=== PATIENT | female | born 1940 | race Caucasian/White ===

== ENCOUNTER → 2020-03-15 | Outpatient (CLI) | payer OTHER, MEDICARE ==
[~2020-03-15] MED LIST: CHOL500050 PO; HCT25T PO; HYDR25TA4 PO; IBUP-2473 PO; LOVA10TA PO
== END ==
LOC: LAB 18:22
PROVIDERS: ATTEND Family Medicine
DX: Z20.828 Contact with and (suspected) exposure to other viral communicable diseases (principal)
CPT/HCPCS: 87635

== ENCOUNTER 2020-03-17 07:25 | Inpatient (IN) | payer MEDICARE, OTHER ==
[~2020-03-17] VITALS: Ht 160 cm; Wt 62.2 kg
[~2020-03-17 07:25] MED LIST changes: -CHOL500050 PO; -HYDR25TA4 PO; -IBUP-2473 PO; -LOVA10TA PO
[2020-03-17] MEDS ORDERED: dilTIAZem DRIP PRE-MIX 125 ML IV SCH (07:45)
[2020-03-17] MEDS ORDERED: HYDROmorphone 2 MG/ML VIAL (DILAUDID) IVP PRN (07:45)
[2020-03-17] MEDS ORDERED: diphenhydrAMINE 25 MG TAB (BENADRYL) PO PRN (07:45)
[2020-03-17] MEDS ORDERED: HEParin 1000 UNIT/ML (10ML VIAL) FOR BOLUS IV SCH (07:45)
[2020-03-17] MEDS ORDERED: CALCIUM CARBONATE 500 MG (TUMS) TAB.CHEW PO PRN (07:45)
[2020-03-17] MEDS ORDERED: diphenhydrAMINE 50 MG/ML INJ (BENADRYL) IVP PRN (08:00)
[2020-03-17] MEDS ORDERED: ACETAMINOPHEN 650 MG SUPP (TYLENOL) PR PRN (08:00)
[2020-03-17 08:06] LABS: BASOPHILS # (AUTO) 0.1 10^3/uL (0.0-0.1); BASOPHILS % (AUTO) 0 % (0-10); EOSINOPHILS # (AUTO) 0.1 10^3/uL (0.0-0.3); EOSINOPHILS % (AUTO) 1 % (0-10); HEMATOCRIT 36 % (35-52); HEMOGLOBIN 11.5 g/dL (11.5-16.0); LYMPHOCYTES # (AUTO) 0.8 10^3/uL (1.0-4.0); LYMPHOCYTES % (AUTO) 5 % (12-44); MEAN CORPUSCULAR HEMOGLOBIN 30 pg (25-34); MEAN CORPUSCULAR HGB CONC 32 g/dL (32-36); MEAN CORPUSCULAR VOLUME 93 fL (80-99); MEAN PLATELET VOLUME 9.7 fL (9.0-12.2); MONOCYTES # (AUTO) 1.2 10^3/uL (0.0-1.0); MONOCYTES % (AUTO) 7 % (0-12); NEUTROPHILS # (AUTO) 14.2 10^3/uL (1.8-7.8); NEUTROPHILS % (AUTO) 86 % (42-75); PLATELET COUNT 319 10^3/uL (130-400); WHITE BLOOD COUNT 16.5 10^3/uL (4.3-11.0)
[2020-03-17] MEDS: NS IV 1000 ML 1,000 ML IV SCH ×3 (08:15→18:39)
--- NOTE | 2020-03-17 08:15 | History & Physical-Hospitalist ---
History of Present Illness HPI/Chief Complaint CC: AF w/RVR new onset transferred from [facility] for higher level of care to ICU HPI: This is a 80yoWF clinic patient of Dr Burch who was transferred from [facility] to [facility] ICU due to new onset AF w/RVR after an emergent small bowel obstruction s/p surgical resection by Dr Anguiano on 03/15. Patient has now converted to NSR. Dr Palomares consulted and placed her on OAC and PO Cardizem and is now ready for move to 4th floor. CLD initiated. Checked meds and labs and reviewed [facility] records. Source: patient, RN/MD, old records Exam Limitations: no limitations Date Seen 03/17/20 Time Seen by a Provider: 11:00 Attending Physician Izabella Vela DO PCP Aura Burch MD Referring Physician Date of Admission Mar 17, 2020 at 07:25 Home Medications & Allergies Home Medications Reviewed patient Home Medication Reconciliation performed by pharmacy medication reconciliations pharmacy technician trainee and/or nursing. Patients Allergies have been reviewed. 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) Alcohol Use: Occasionally Uses Smoking Status: Never a Smoker Immunizations Up To Date Date of Pneumonia Vaccine: Dec 29, 2018 Date of Influenza Vaccine: Dec 21, 2019 Past Medical History Cardiac: High Cholesterol, Hypertension Reproductive: No Review of Systems Constitutional: see HPI Respiratory: dyspnea on exertion Gastrointestinal: abdominal pain, loss of appetite Physical Exam Physical Exam Vital Signs Vital Signs - First Documented 03/17/20 03/17/20 03/17/20 07:45 08:32 09:00 Temp 37.6 Pulse 89 Resp 31 B/P (MAP) 91/50 (64) Pulse Ox 94 O2 Delivery Nasal Cannula O2 Flow Rate 10.00 Capillary Refill : Height, Weight, BMI Height: '" Weight: lbs. oz. kg; 25.58 BMI Method: General Appearance: No Apparent Distress Eyes: Right Eye Normal Inspection, Right Eye PERRL HEENT: PERRL/EOMI, Normal ENT Inspection, Pharynx Normal, Moist Mucous Membranes Neck: Full Range of Motion, Normal Inspection, Non Tender Respiratory: Chest Non Tender, Lungs Clear, Normal Breath Sounds, No Accessory Muscle Use, No Respiratory Distress Cardiovascular: Regular Rate, Rhythm, No Edema, No Gallop, No JVD, No Murmur, Normal Peripheral Pulses Gastrointestinal: Normal Bowel Sounds, No Organomegaly, No Pulsatile Mass, Non Tender, Soft Back: Normal Inspection, No CVA Tenderness, No Vertebral Tenderness Extremity: Normal Capillary Refill, Normal Inspection, Normal Range of Motion, Non Tender, No Calf Tenderness, No Pedal Edema Neurologic/Psychiatric: Alert, Oriented x3, No Motor/Sensory Deficits, Normal Mood/Affect Skin: Normal Color, Warm/Dry Lymphatic: No Adenopathy Results Results/Procedures Labs Laboratory Tests 03/17/20 08:00 Patient resulted labs reviewed. Assessment/Plan Admission Diagnosis Assessment: AF w/RVR new onset requiring transfer from [facility] to [facility] ICU now converted to NSR after Cardizem given at [facility] Recent emergent SBO s/o resection 03/15/[address] Anguiano at [facility] HTN HLP Post op ileus Plan: Pain control OAC Cardizem Admission Status: Inpatient Order (span 2 midnights) Reason for Inpatient Admission: AF w/RVR Diagnosis/Problems Diagnosis/Problems (1) Atrial fibrillation with rapid ventricular response Clinical Quality Measures DVT/VTE Risk/Contraindication: Risk Factor Score Per Nursin RFS Level Per Nursing on Admit: 4+=Very High IZABELLA VELA DO Mar 17, 2020 08:15
[2020-03-17 08:19] LABS: ALBUMIN 2.9 GM/DL (3.2-4.5); CHLORIDE 104 MMOL/L (98-107); POTASSIUM 3.1 MMOL/L (3.6-5.0)
[2020-03-17 08:20] LABS: SODIUM 137 MMOL/L (135-145)
[2020-03-17 08:21] LABS: CALCIUM 8.1 MG/DL (8.5-10.1)
[2020-03-17 08:22] LABS: GLUCOSE 65 MG/DL (70-105); TOTAL PROTEIN 5.4 GM/DL (6.4-8.2)
[2020-03-17 08:23] LABS: CARBON DIOXIDE 17 MMOL/L (21-32)
[2020-03-17 08:24] LABS: BILIRUBIN,TOTAL 0.9 MG/DL (0.1-1.0)
[2020-03-17 08:25] LABS: ALKALINE PHOSPHATASE 39 U/L (40-136); CREATININE SERUM 0.76 MG/DL (0.60-1.30); GFR ESTIMATED > 60
--- NOTE | 2020-03-17 08:26 | Diagnostic Imaging Report ---
EXAMINATION: Chest radiograph, portable AP view. DATE: 03/17/2020 8:15 AM INDICATION: 80-year-old female, rales. Shortness of breath. COMPARISON: None. FINDINGS: Heart size is within normal limits. There is no identified pneumothorax. There is blunting of the left lateral costophrenic angle. There are mildly prominent pulmonary vascular markings. Comparison imaging is not available to assess for possibility of stability. There is a nasogastric tube with tip just distal to the gastroesophageal junction. Consider advancement. IMPRESSION: 1. Mild blunting the left lateral costophrenic angle which may relate to small effusion, atelectasis, and/or infiltrate. Soft tissue overlap is also considered. 2. Mildly prominent pulmonary vascular markings most likely reflecting interstitial edema, atypical infection, and/or chronic lung changes. 3. Nasogastric tube tip just slightly distal to the gastroesophageal junction. Recommend advancement. Dictated by: Dictated on workstation # [id number]
[2020-03-17 08:27] LABS: BUN/CREATININE RATIO 26
[2020-03-17 08:28] LABS: ALANINE AMINOTRANSFERASE 9 U/L (0-55)
[2020-03-17 08:41] LABS: BAND NEUTROPHILS 19 %; LYMPHOCYTES % (MANUAL) 8 %; MONOCYTES % (MANUAL) 13 %; NEUTROPHILS % (MANUAL) 60 %
[2020-03-17 08:42] LABS: BURR CELLS SLIGHT
[2020-03-17 08:51] LABS: INR 1.5 (0.8-1.4); PROTHROMBIN TIME PATIENT 18.6 SEC (12.2-14.7)
[2020-03-17] MEDS: APIXABAN 5 MG (ELIQUIS) TABLET PO SCH ×2 (09:28→20:40)
[2020-03-17] MEDS: POTASSIUM CL 10MEQ/50ML IVPB 50 ML IV SCH ×4 (10:36→16:55)
[2020-03-17 10:40] VITALS: BP 114/71
[2020-03-17] MEDS ORDERED: RT-ALBUTEROL SULF 2.5 MG/3 ML PRE-MIX VIAL INH PRN (11:00)
--- NOTE | 2020-03-17 11:32 | Progress Note - Surgery ---
Subjective Time Seen by a Provider: 09:01 Subjective/Events-last exam Pt seen and examined, states she is very thirsty and can't talk because her mouth is so dry. Denies flatus or BM, still has some abdominal pain in upper abd. Review of Systems General: No Chills; Fatigue, Malaise Pulmonary: No Dyspnea, No Cough Cardiovascular: Palpitations; No: Chest Pain Gastrointestinal: Abdominal Pain; No: Nausea, Vomiting Objective Exam Vital Signs Date Time Temp Pulse Resp B/P (MAP) Pulse Ox O2 Delivery O2 Flow Rate FiO2 03/17/20 10:40 37.2 88 97 03/17/20 10:00 93 22 114/71 (85) 97 Nasal Cannula 10.00 03/17/20 09:00 98 31 109/58 (75) 94 Nasal Cannula 10.00 03/17/20 08:36 37.2 03/17/20 08:32 37.6 105 91/50 (64) Nasal Cannula 10.00 03/17/20 08:32 89 03/17/20 07:45 94 Nasal Cannula 10.00 Capillary Refill : General Appearance: No Apparent Distress, Chronically ill Respiratory: Lungs Clear, Normal Breath Sounds, No Accessory Muscle Use, No Respiratory Distress Cardiovascular: Regular Rate, Rhythm, No Murmur Gastrointestinal: soft, distended, tenderness Skin: Normal Color, Warm/Dry Results Lab Laboratory Tests 03/17/20 08:00: White Blood Count 16.5H, Red Blood Count 3.88, Hemoglobin 11.5, Hematocrit 36, Mean Corpuscular Volume 93, Mean Corpuscular Hemoglobin 30, Mean Corpuscular Hemoglobin Concent 32, Red Cell Distribution Width 12.7, Platelet Count 319, Mean Platelet Volume 9.7, Immature Granulocyte % (Auto) 1, Neutrophils (%) (Auto) 86H, Lymphocytes (%) (Auto) 5L, Monocytes (%) (Auto) 7, Eosinophils (%) (Auto) 1, Basophils (%) (Auto) 0, Neutrophils # (Auto) 14.2H, Lymphocytes # (Auto) 0.8L, Monocytes # (Auto) 1.2H, Eosinophils # (Auto) 0.1, Basophils # (Auto) 0.1, Immature Granulocyte # (Auto) 0.1, Neutrophils % (Manual) 60, Lymphocytes % (Manual) 8, Monocytes % (Manual) 13, Band Neutrophils 19, [place] Cells SLIGHT, Prothrombin Time 18.6H, INR Comment 1.5H, Activated Partial Thromboplast Time 42H, Sodium Level 137, Potassium Level 3.1L, Chloride Level 104, Carbon Dioxide Level 17L, Anion Gap 16H, Blood Urea Nitrogen 20H, Creatinine 0.76, Estimat Glomerular Filtration Rate > 60, BUN/Creatinine Ratio 26, Glucose Level 65L, Calcium Level 8.1L, Corrected Calcium 9.0, Total Bilirubin 0.9, Aspartate Amino Transf (AST/SGOT) 18, Alanine Aminotransferase (ALT/SGPT) 9, Alkaline Phosphatase 39L, Total Protein 5.4L, Albumin 2.9L Assessment/Plan Assessment/Plan Assessment/Plan S/P SBR and RIH repair Afib with RVR - resolved Pt encouraged to ambulate and chew gum (both will help with return of bowel f xn). Use IS and can have sips of clears, NGT clamp and rehook up if pt get nauseous. Pain control and anti-emetics as needed. Clinical Quality Measures DVT/VTE Risk/Contraindication: Risk Factor Score Per Nursin RFS Level Per Nursing on Admit: 4+=Very High ANDRE BARON DO Mar 17, 2020 11:32
--- NOTE | 2020-03-17 14:30 | NUR ---
RECEIVED FROM ICU, ALERT, NG TUBE CONNECTED TO INT LOW SUCTION, SERRANO PATENT, ABD INCISION WITHOUT REDNESS OR DRAINAGE, O2 ON PER NC AT 10 LITERS, DENIES PAIN AT THIS TIME, IV SITE WITHOUT REDNESS OR SWELLING, CALL LIGHT WITHIN REACH, REPORT FROM CIARA TANNER
--- NOTE | 2020-03-17 14:33 | Consultation-Cardiology ---
HPI-Cardiology Cardiology Consultation: Date of Consultation 03/17/20 Time Seen by a Provider: 12:00 Date of Admission Attending Physician Izabella Clayton DO Admitting Physician Aura Burch MD Consulting Physician SERGEY HUYNH MD, MA, FACP, FACC, [facility], CCDS Physician requesting consult: Dr Clayton HPI: Chief Complaint: Reason for consultation: A Fib with RVR HPI 80 yo woman who underwent small bowel resection and R inguinal hernia repair in [place] and has been transferred to this [facility] to Dr Clayton's service for A Fib with RVR in the post-op period. Had converted to NSR shortly upon arrival here. Doesn't report cp or palp or syncope or shortness of breath. Reports gen malaise. Some discomfort at site of surgery. No n/v Review of Systems-Cardiology Review of Systems Constitutional: malaise, tiredness; No weight loss, No weight gain Eyes: No vision change Ears/Nose/Throat: No ear discharge, No nasal drainage, No recent hearing loss Respiratory: As described under HPI Cardiovascular: As described under HPI Gastrointestinal: As described under HPI Genitourinary: No dysuria, No hematuria, No urine frequency changes Musculoskeletal: back pain (chroni) Skin: No rash Psychiatric/Neurological: No seizure, No focal weakness, No syncope Hematologic: No bleeding abnormalities XNG-Sgyxvl-Eoiovl Hx Immunizations Up To Date Date of Pneumonia Vaccine: Dec 29, 2018 Date of Influenza Vaccine: Dec 21, 2019 Past Medical History PMH As described under Assessment. Family Medical History Family Medical History: Does not report fam history of early CAD or SCD. Father had OR in his mid 70s Allergies and Home Medications Allergies Coded Allergies: No Known Drug Allergies (Unverified Allergy, Mild, 03/26/09) Patient Home Medication List Home Medication List Reviewed: Yes Physical Exam-Cardiology Physical Exam Vital Signs/I&O 03/17/20 03/17/20 03/17/20 03/17/20 07:45 08:32 08:32 08:36 Temp 37.6 37.2 Pulse 89 105 B/P (MAP) 91/50 (64) Pulse Ox 94 O2 Delivery Nasal Cannula Nasal Cannula O2 Flow Rate 10.00 10.00 03/17/20 03/17/20 03/17/20 03/17/20 09:00 10:00 10:40 11:00 Temp 37.2 Pulse 98 93 88 101 Resp 31 22 37 B/P (MAP) 109/58 (75) 114/71 (85) 97/78 (84) Pulse Ox 94 97 97 93 O2 Delivery Nasal Cannula Nasal Cannula Nasal Cannula O2 Flow Rate 10.00 10.00 10.00 03/17/20 03/17/20 12:00 12:52 Pulse 93 98 Resp 22 B/P (MAP) 110/61 (77) Pulse Ox 97 O2 Delivery Nasal Cannula O2 Flow Rate 10.00 Capillary Refill : Constitutional: AAO x 3, well-developed, well-nourished HEENT: EOMI, hearing is well preserved; No xanthelasmas are seen Neck: carotid pulses are 2 + bilaterally, with good upstrokes Respiratory: No accessory muscle use; other (fair to good air entry) Cardiovascular: regular rate-rhythm, S1 and S2, systolic murmur (soft GREGORIO at card base) Gastrointestinal: other (NGT in place, bs absent, we did not palpate abdomen due to recent post-op state) Extremities: No clubbing, No cyanosis, No significant edema Neurologic/Psychiatric: oriented x 3, other (moves all limbs equally) Skin: No rash on exposed areas, No ulcerations on exposed areas Data Review Labs Laboratory Tests 03/17/20 08:00: White Blood Count 16.5H, Red Blood Count 3.88, Hemoglobin 11.5, Hematocrit 36, Mean Corpuscular Volume 93, Mean Corpuscular Hemoglobin 30, Mean Corpuscular Hemoglobin Concent 32, Red Cell Distribution Width 12.7, Platelet Count 319, Mean Platelet Volume 9.7, Immature Granulocyte % (Auto) 1, Neutrophils (%) (Auto) 86H, Lymphocytes (%) (Auto) 5L, Monocytes (%) (Auto) 7, Eosinophils (%) (Auto) 1, Basophils (%) (Auto) 0, Neutrophils # (Auto) 14.2H, Lymphocytes # (Auto) 0.8L, Monocytes # (Auto) 1.2H, Eosinophils # (Auto) 0.1, Basophils # (Auto) 0.1, Immature Granulocyte # (Auto) 0.1, Neutrophils % (Manual) 60, Lymphocytes % (Manual) 8, Monocytes % (Manual) 13, Band Neutrophils 19, [place] Cells SLIGHT, Prothrombin Time 18.6H, INR Comment 1.5H, Activated Partial Thromboplast Time 42H, Sodium Level 137, Potassium Level 3.1L, Chloride Level 104, Carbon Dioxide Level 17L, Anion Gap 16H, Blood Urea Nitrogen 20H, Creatinine 0.76, Estimat Glomerular Filtration Rate > 60, BUN/Creatinine Ratio 26, Glucose Level 65L, Calcium Level 8.1L, Corrected Calcium 9.0, Total Bilirubin 0.9, Aspartate Amino Transf (AST/SGOT) 18, Alanine Aminotransferase (ALT/SGPT) 9, Alkaline Phosphatase 39L, Total Protein 5.4L, Albumin 2.9L Laboratory Tests 03/17/20 08:00 A/P-Cardiology Assessment/Admission Diagnosis PAF with RVR first diagnosed on 03/17/20 Echo on 03/17/20: LVEF 60-65%, PASP 25-30 mmHg S/p bowel resection and R inguinal hernia repair H/o hypertension Discussion and Recomendations * Long-acting dilt for vent rate control * Apixaban for stroke prophylaxis, if approved by Dr Clayton * Monitor labs Clinical Quality Measures DVT/VTE Risk/Contraindication: Risk Factor Score Per Nursin RFS Level Per Nursing on Admit: 4+=Very High SERGEY HUYNH MD FACP [facility] Mar 17, 2020 14:33
--- NOTE | 2020-03-17 14:34 | NUR ---
LATE ENTRY, TIMELINE OF EVENTS: [address] VELA NOTIFIED NEW ORDERS RECEIVED, PT NOTED TO BE AFIB IN 180'S ORDERS RECEIVED TO START CARDIZEM DRIP AND NOTIFY DR HUYNH. PT NOTED TO HAVE CONVERTED TO SINUS RHYTHM, EKG OBTAINED, 0800 DR HUYNH NOTIFIED OF CONSULT, NEW ORDERS RECEIVED. 1000 PT ASSISTED TO CHAIR AND GIVEN SIPS OF ICE WATER PER VERBAL ORDERS DR BARON 1245 ORDERS OBTAINED FOR PT TO BE TRANSFERRED TO MEDICAL FLOOR WITH TELEMETRY 1415 PT TO 4TH FLOOR VIA WC ACCOMPANIED BY PAPER FOLDER., REPORT GIVEN TO Wilfredo SANDOVAL RN
[2020-03-17 14:52] VITALS: BP 125/63
[2020-03-17] MEDS ORDERED: LOVA10TA PO (15:08)
[2020-03-17 16:00] VITALS: BP 134/70
[2020-03-17] MEDS: morphine INJ 4 MG/ML 1 ML (VIAL/SYRINGE) IVP PRN ×2 (16:56→20:45)
[2020-03-17] MEDS: RT-ALBUTEROL SULF 2.5 MG/3 ML PRE-MIX VIAL INH SCH ×2 (17:08→22:44)
[2020-03-17 20:07] VITALS: BP 132/61
[2020-03-17] MEDS: ACETAMINOPHEN 500 MG TAB (TYLENOL) PO PRN (20:40)
[2020-03-17] MEDS: ONDANSETRON 4 MG/2 ML (SDV) Z0FRAN IVP PRN (23:59)
[2020-03-18] VITALS (8 sets, daily range): BP systolic 118–174; BP diastolic 56–95
[2020-03-18] MEDS: NS IV 1000 ML 1,000 ML IV SCH ×3 (02:52→19:20)
[2020-03-18] MEDS: RT-ALBUTEROL SULF 2.5 MG/3 ML PRE-MIX VIAL INH SCH ×3 (03:29→21:29)
[2020-03-18] MEDS ORDERED: MAGNESIUM 1 GM/100 ML IVPB 100 ML IV SCH (06:00)
[2020-03-18] MEDS ORDERED: POTASSIUM CL 10MEQ/50ML IVPB 50 ML IV SCH (06:00)
[2020-03-18] MEDS ORDERED: KCL 20 MEQ TAB (K-DUR) PO SCH (06:00)
--- NOTE | 2020-03-18 06:15 | Progress Note - Hospitalist ---
Subjective HPI/CC On Admission Date Seen by Provider: Mar 18, 2020 Time Seen by Provider: 09:00 CC: AF w/RVR new onset [place] [facility] [place] HPI: This is a 80yoWF clinic patient of Dr Burch who was [place] [facility] [place] [facility] ICU due to new onset AF w/RVR after an emergent small bowel obstruction s/p surgical resection by Dr Anguiano on 03/15. Patient has now converted to NSR. Dr Palomares consulted and placed her on OAC and PO Cardizem and is now ready for move to 4th floor. CLD initiated. Checked meds and labs and [place] [facility] [place]. Subjective/Events-last exam Pt a little bit more tender in her abdomen PT and OT ordered Potassium supplement will be ordered by cardiology Pt remains in normal sinus rhythm from AF Maintained on Eliquis for anticoagulation for stroke prophylaxis Review of Systems General: Fatigue, Malaise Gastrointestinal: Abdominal Pain Objective Exam Vital Signs Vital Signs Date Time Temp Pulse Resp B/P (MAP) Pulse Ox O2 Delivery O2 Flow Rate FiO2 03/19/20 03:16 36.9 89 18 117/59 (78) 91 High Flow N/C 6.00 Capillary Refill : NONE General Appearance: No Apparent Distress, WD/WN, Anxious, Chronically ill Respiratory: Chest Non Tender, Lungs Clear, Normal Breath Sounds, No Accessory Muscle Use, No Respiratory Distress Cardiovascular: Regular Rate, Rhythm, No Edema, No Gallop, No JVD, No Murmur, Normal Peripheral Pulses, Tachycardia Neurologic/Psychiatric: Alert, Oriented x3, No Motor/Sensory Deficits, Normal Mood/Affect Results/Procedures Lab Laboratory Tests 03/18/20 05:35 Patient resulted labs reviewed. Assessment/Plan Assessment and Plan Assess & Plan/Chief Complaint Assessment: AF w/RVR new onset requiring [place] [facility] [place] [facility] ICU now converted to NSR after Cardizem given at [facility] Recent emergent SBO s/o resection 03/15/[address] Anguiano at [facility] [place] H[place] Post op ileus Plan: Pain control OAC Cardizem 03/18/20: Replace potassium Monitor HR AF Pain meds PT OT Diagnosis/Problems Diagnosis/Problems (1) Atrial fibrillation with rapid ventricular response Clinical Quality Measures DVT/VTE Risk/Contraindication: Risk Factor Score Per Nursin RFS Level Per Nursing on Admit: 4+=Very High KEYA VELA 28, 2020 06:15
[2020-03-18 06:22] LABS: BASOPHILS % (AUTO) 0 % (0-10); EOSINOPHILS % (AUTO) 0 % (0-10); HEMATOCRIT 31 % (35-52); HEMOGLOBIN 9.9 g/dL (11.5-16.0); LYMPHOCYTES # (AUTO) 0.5 10^3/uL (1.0-4.0); LYMPHOCYTES % (AUTO) 4 % (12-44); MEAN CORPUSCULAR HEMOGLOBIN 30 pg (25-34); MEAN CORPUSCULAR HGB CONC 32 g/dL (32-36); MEAN CORPUSCULAR VOLUME 94 fL (80-99); MEAN PLATELET VOLUME 10.2 fL (9.0-12.2); MONOCYTES # (AUTO) 0.7 10^3/uL (0.0-1.0); MONOCYTES % (AUTO) 4 % (0-12); NEUTROPHILS # (AUTO) 13.8 10^3/uL (1.8-7.8); NEUTROPHILS % (AUTO) 91 % (42-75); PLATELET COUNT 319 10^3/uL (130-400); WHITE BLOOD COUNT 15.1 10^3/uL (4.3-11.0)
[2020-03-18 06:50] LABS: ALANINE AMINOTRANSFERASE 8 U/L (0-55); ALBUMIN 2.7 GM/DL (3.2-4.5); ALKALINE PHOSPHATASE 46 U/L (40-136); BILIRUBIN,TOTAL 0.6 MG/DL (0.1-1.0); BUN/CREATININE RATIO 25; CALCIUM 8.4 MG/DL (8.5-10.1); CARBON DIOXIDE 17 MMOL/L (21-32); CHLORIDE 109 MMOL/L (98-107); CREATININE SERUM 0.68 MG/DL (0.60-1.30); GFR ESTIMATED > 60; GLUCOSE 81 MG/DL (70-105); MAGNESIUM 2.1 MG/DL (1.6-2.4); SODIUM 142 MMOL/L (135-145); TOTAL PROTEIN 5.5 GM/DL (6.4-8.2)
--- NOTE | 2020-03-18 07:59 | Progress Note - Surgery ---
KLEVER MCCONNELL MED STUDENT 03/18/20 0759: Subjective Date Seen by a Provider: Mar 18, 2020 Time Seen by a Provider: 06:40 Subjective/Events-last exam Pt seen and examined. She was in bed resting in NAD. She has an NG tube in place draining dark/bilious fluid. She has abd pain 3/10 that she says in controlled with her pain medication. No complaints of chest pain/N/V/SOB this AM, but last night did have an episode with significant abd pain, nausea, headache, and lightheadedness, after which she had the NG tube place and her condition improved. Denies passing flatus or having a bowel movement since her bowel resection on 03/15. Review of Systems General: No Chills HEENT: No Head Aches Pulmonary: No Dyspnea Cardiovascular: No: Chest Pain, Lt Headedness Gastrointestinal: Abdominal Pain; No: Nausea, Vomiting Genitourinary: No Dysuria Objective Exam Vital Signs Date Time Temp Pulse Resp B/P (MAP) Pulse Ox O2 Delivery O2 Flow Rate FiO2 03/18/20 03:54 37.2 78 20 121/56 (77) 92 High Flow N/C 8.00 03/18/20 03:29 92 High Flow N/C 8.00 03/18/20 01:00 80 03/18/20 00:00 37.6 85 16 118/58 (78) 92 High Flow N/C 6.00 03/17/20 22:44 5.00 03/17/20 21:00 9 Nasal Cannula 5.00 03/17/20 20:07 37.1 90 18 132/61 (84) 92 High Flow N/C 5.00 03/17/20 19:00 91 03/17/20 16:00 36.8 85 16 134/70 (91) 98 High Flow N/C 5.00 03/17/20 15:00 91 Nasal Cannula 10.00 03/17/20 14:52 37.2 91 20 125/63 (83) 91 Nasal Cannula 10.00 03/17/20 12:52 98 03/17/20 12:00 93 22 110/61 (77) 97 Nasal Cannula 10.00 03/17/20 11:00 101 37 97/78 (84) 93 Nasal Cannula 10.00 03/17/20 10:40 37.2 88 97 03/17/20 10:00 93 22 114/71 (85) 97 Nasal Cannula 10.00 03/17/20 09:00 98 31 109/58 (75) 94 Nasal Cannula 10.00 03/17/20 08:36 37.2 03/17/20 08:32 37.6 105 91/50 (64) Nasal Cannula 10.00 03/17/20 08:32 89 I & O 03/18/20 07:00 Intake Total 550 ml Output Total 1600 ml Balance -1050 ml Capillary Refill : NONE General Appearance: No Apparent Distress HEENT: PERRL/EOMI Neck: Full Range of Motion, Normal Inspection, Non Tender Respiratory: Chest Non Tender, Lungs Clear, Normal Breath Sounds, No Accessory Muscle Use, No Respiratory Distress Cardiovascular: Regular Rate, Rhythm, No Edema, No Gallop, No JVD, No Murmur, Normal Peripheral Pulses Gastrointestinal: abnormal bowel sounds (tympanitic), distended, tenderness, other (R inguinal incision, umbilical incision, lap sites all secured with candis with no s/s infection/drainage) Extremity: Normal Capillary Refill, Normal Inspection, Normal Range of Motion, Non Tender, No Pedal Edema Neurologic/Psychiatric: Alert, Oriented x3, No Motor/Sensory Deficits, Normal Mood/Affect Skin: Normal Color, Warm/Dry Lymphatic: No Adenopathy Results Lab Laboratory Tests 03/17/20 08:00: White Blood Count 16.5H, Red Blood Count 3.88, Hemoglobin 11.5, Hematocrit 36, Mean Corpuscular Volume 93, Mean Corpuscular Hemoglobin 30, Mean Corpuscular Hemoglobin Concent 32, Red Cell Distribution Width 12.7, Platelet Count 319, Mean Platelet Volume 9.7, Immature Granulocyte % (Auto) 1, Neutrophils (%) (Auto) 86H, Lymphocytes (%) (Auto) 5L, Monocytes (%) (Auto) 7, Eosinophils (%) (Auto) 1, Basophils (%) (Auto) 0, Neutrophils # (Auto) 14.2H, Lymphocytes # (Auto) 0.8L, Monocytes # (Auto) 1.2H, Eosinophils # (Auto) 0.1, Basophils # (Auto) 0.1, Immature Granulocyte # (Auto) 0.1, Neutrophils % (Manual) 60, Lymphocytes % (Manual) 8, Monocytes % (Manual) 13, Band Neutrophils 19, [place] Cells SLIGHT, Prothrombin Time 18.6H, INR Comment 1.5H, Activated Partial Thromboplast Time 42H, Sodium Level 137, Potassium Level 3.1L, Chloride Level 104, Carbon Dioxide Level 17L, Anion Gap 16H, Blood Urea Nitrogen 20H, Creatinine 0.76, Estimat Glomerular Filtration Rate > 60, BUN/Creatinine Ratio 26, Glucose Level 65L, Calcium Level 8.1L, Corrected Calcium 9.0, Total Bilirubin 0.9, Aspartate Amino Transf (AST/SGOT) 18, Alanine Aminotransferase (ALT/SGPT) 9, Alkaline Phosphatase 39L, Total Protein 5.4L, Albumin 2.9L 03/18/20 05:35: White Blood Count 15.1H, Red Blood Count 3.33L, Hemoglobin 9.9L, Hematocrit 31L, Mean Corpuscular Volume 94, Mean Corpuscular Hemoglobin 30, Mean Corpuscular Hemoglobin Concent 32, Red Cell Distribution Width 13.1, Platelet Count 319, Mean Platelet Volume 10.2, Immature Granulocyte % (Auto) 1, Neutrophils (%) (Auto) 91H, Lymphocytes (%) (Auto) 4L, Monocytes (%) (Auto) 4, Eosinophils (%) (Auto) 0, Basophils (%) (Auto) 0, Neutrophils # (Auto) 13.8H, Lymphocytes # (Auto) 0.5L, Monocytes # (Auto) 0.7, Eosinophils # (Auto) 0.0, Basophils # (Auto) 0.0, Immature Granulocyte # (Auto) 0.1, Sodium Level 142, Potassium Level 3.0L, Chloride Level 109H, Carbon Dioxide Level 17L, Anion Gap 16H, Blood Urea Nitrogen 17, Creatinine 0.68, Estimat Glomerular Filtration Rate > 60, BUN/Creatinine Ratio 25, Glucose Level 81, Calcium Level 8.4L, Corrected Calcium 9.4, Total Bilirubin 0.6, Aspartate Amino Transf (AST/SGOT) 18, Alanine Aminotransferase (ALT/SGPT) 8, Alkaline Phosphatase 46, Total Protein 5.5L, Albumin 2.7L, Magnesium Level 2.1 Assessment/Plan Assessment/Plan Assessment/Plan S/P SBR and RIH repair 03/15 Hypokalemia - K 3.0 Afib with RVR - resolved Pt has not passed flatus since her procedure on 03/15; continue to encourage ambulation, IS use, clear liquids, pain management, antiemetics, replenish K Clinical Quality Measures DVT/VTE Risk/Contraindication: Risk Factor Score Per Nursin RFS Level Per Nursing on Admit: 4+=Very High ANGUIANOKVNG NOVA DO 03/18/202020: Subjective Subjective/Events-last exam Patient sitting in the chair. Patient states she has been ambulating. She had NG tube placed back to low wall suction. She states her pain is a 3 out of 10 and is controlled. Patient has past just a little bit of flatus just after walking. Using incentive spirometer some but not able to do very well. Slight shortness of breath with exertion. No other complaints at this time. Denies any nausea vomiting fever sweats chills shortness of breath or chest pain currently. WBC slowly trending down. Objective Exam General Appearance: No Apparent Distress HEENT: PERRL/EOMI Neck: Normal Inspection, Non Tender, Other Respiratory: Chest Non Tender, No Accessory Muscle Use, No Respiratory Distress Cardiovascular: Regular Rate, Rhythm, No JVD Gastrointestinal: distended (Minimal), tenderness (Incisional), other (R inguinal incision, umbilical incision, lap sites all secured with candis with no s/s infection/drainage) Extremity: Normal Inspection, Non Tender Neurologic/Psychiatric: Alert, Oriented x3, No Motor/Sensory Deficits, Normal Mood/Affect Skin: Normal Color, Warm/Dry Lymphatic: No Adenopathy Assessment/Plan Assessment/Plan Assessment/Plan S/P SBR and RIH repair 03/15 Hypokalemia - K 3.0 Afib with RVR Leukocytosis Passed flatus once if continue will pull ng tube and clears as tolerates Zosyn started back leukocytosis slightly down from yesterday, small bowel resection due to hole in small bowel minimal intrabdomianl contamination and was washed out Anticoagulation due to Afib rvr IS encouraged Ambulate repeat labs in am replace k Supervisory-Addendum Brief Verification & Attestation Participated in pt care: history, MDM, physical Personally performed: exam, history, MDM, supervision of care Care discussed with: Medical Student Procedures: n/a Results interpretation: Verified all documentation Verification and Attestation of Medical Student E/M Service A medical student performed and documented this service in my presence. I reviewed and verified all information documented by the medical student and made modifications to such information, when appropriate. I personally performed the physical exam and medical decision making. Kvng Anguiano, Mar 18, 2020,20:21 KLEVER MCCONNELL MED STUDENT Mar 18, 2020 07:59 KVNG ANGUIANO DO Mar 18, 2020 20:21
[2020-03-18] MEDS ORDERED: CHOL500050 PO (09:41)
[2020-03-18] MEDS ORDERED: IBUP-2473 PO (09:41)
[2020-03-18] MEDS ORDERED: HYDR25TA4 PO (09:41)
--- NOTE | 2020-03-18 09:46 | NUR ---
I SPOKE WITH THE PATIENT AND WENT THROUGH THE EXTERNAL MED HISTORY TO COMPLETE THIS MED REC. PT SAYS THAT SHE'S REALLY BAD ABOUT TAKING THE LOVASTATIN HS, BUT TAKES IT WHEN SHE REMEMBERS AND THAT IS WHY SHE IS PAST DUE TO PICK THEM UP. PT HAD BOTTLES WITH HER AND STILL HAD SOME LEFT. OTC: VITAMIN D IBUPROFEN
[2020-03-18] MEDS: APIXABAN 5 MG (ELIQUIS) TABLET PO SCH ×2 (09:55→20:39)
--- NOTE | 2020-03-18 10:34 | Progress Note - Cardiology ---
Cardiology SOAP Progress Note Subjective: Sitting up in the recliner at the bedside C/O mild abd discomfort No c/o CP or palpitations C/O mild SOB when up ambulating earlier today Objective: I&O/Vital Signs 03/18/20 03/18/20 03/19/20 03/19/20 19:55 21:29 00:33 01:00 Temp 37.0 Pulse 92 87 Resp 18 B/P (MAP) 120/59 (79) Pulse Ox 91 93 O2 Delivery High Flow N/C High Flow N/C High Flow N/C O2 Flow Rate 5.00 6.00 6.00 03/19/20 03:16 Temp 36.9 Pulse 89 Resp 18 B/P (MAP) 117/59 (78) Pulse Ox 91 O2 Delivery High Flow N/C O2 Flow Rate 6.00 03/19/20 00:00 Intake Total 1990 ml Output Total 2500 ml Balance -510 ml Constitutional: AAO x 3, well-developed, well-nourished Respiratory: No accessory muscle use; other (fair to good air entry) Cardiovascular: regular rate-rhythm, S1 and S2, systolic murmur (soft GREGORIO at card base) Gastrointestional: other (NGT in place, bs absent, we did not palpate abdomen due to recent post-op state) Extremities: No clubbing, No cyanosis, No significant edema Neurologic/Psychiatric: oriented x 3, other (moves all limbs equally) Skin: No rash on exposed areas, No ulcerations on exposed areas Results/Procedures: Labs Laboratory Tests 03/19/20 05:52: White Blood Count 13.4H, Red Blood Count 3.30L, Hemoglobin 9.8L, Hematocrit 30L, Mean Corpuscular Volume 92, Mean Corpuscular Hemoglobin 30, Mean Corpuscular Hemoglobin Concent 32, Red Cell Distribution Width 13.2, Platelet Count 389, Mean Platelet Volume 9.8, Sodium Level 145, Potassium Level 3.4L, Chloride Level 112H, Carbon Dioxide Level 23, Anion Gap 10, Blood Urea Nitrogen 14, Creatinine 0.58L, Estimat Glomerular Filtration Rate > 60, BUN/Creatinine Ratio 24, Glucose Level 113H, Calcium Level 8.5, Magnesium Level 2.2 Microbiology 03/17/20 MRSA Screen - Final, Complete MRSA not isolated A/P: Assessment: PAF with RVR first diagnosed on 03/17/20 Echo on 03/17/20: LVEF 60-65%, PASP 25-30 mmHg S/p bowel resection and R inguinal hernia repair H/o hypertension Plan: * Continue long-acting dilt for vent rate control * Continue Apixaban for stroke prophylaxis * Monitor labs * Replace electrolytes as indicated LAURY STEPHENSON Mar 18, 2020 10:34
[2020-03-18] MEDS: morphine INJ 4 MG/ML 1 ML (VIAL/SYRINGE) IVP PRN ×2 (11:15→21:26)
[2020-03-18] MEDS ORDERED: KCL 20 MEQ TAB (K-DUR) PO NR ×2 (11:18→14:00)
[2020-03-18] MEDS ORDERED: POTASSIUM BICARB 20 MEQ (EFFER-K) TABLET PO NR ×2 (11:33→14:00)
--- NOTE | 2020-03-18 12:07 | Physical Therapy Evaluation ---
PT Evaluation-General Medical Diagnosis Admission Date Mar 17, 2020 at 07:25 Medical Diagnosis: A-fib with RVR Onset Date: Mar 17, 2020 Therapy Diagnosis Therapy Diagnosis: debility Precautions Precautions/Isolations: Fall Prevention, Standard Precautions Referral Physician: Matilde Reason for Referral: Evaluation/Treatment Medical History Pertinent Medical History: HTN Additional Medical History s/p SBO with resection Current History transfer from [facility] [place] Reviewed History: Yes Social History Home: Single Level Current Living Status: Spouse Prior Prior Level of Function SCALE: Activities may be completed with or without assistive devices. 5-Hsvolcyjsv-ptmjikg completes the activity by him/herself with no assistance from a helper. 5-Set-up or Clean-up Assistance-helper sets up or cleans up; patient completes activity. [place] assists only prior to or following the activity. 4-Supervision or Touching Assistance-helper provides verbal cues and/or touching/steadying and/or contact guard assistance as patient completes activity. Assistance may be provided throughout the activity or intermittently. 3-Partial/Moderate Assistance-helper does LESS THAN HALF the effort. [place] lifts, holds or supports trunk or limbs, but provides less than half the effort. 2-Substantial/Maximal Assistance-helper does MORE THAN HALF the effort. [place] lifts or holds trunk or limbs and provides more than half the effort. 2-Gwwxbmmzo-qqyegi does ALL the effort. Patient does none of the effort to complete the activity. Or, the assistance of 2 or more helpers is required for the patient to complete the activity. If activity was not attempted, code reason: 7-Patient Refused. 9-Not Applicable-not attempted and the patient did not perform the activity befo re the current illness, exacerbation or injury. 10-Not Attempted due to Environmental Limitations-(lack of equipment, weather re straints, etc.). 88-Not Attempted due to Medical Conditions or Safety Concerns. Bed Mobility: 6 Transfers (B,C,W/C): 6 Gait: 6 Stairs: 6 Indoor Mobility (Ambulation): Independent Stairs: Independent Prior Devices Use: None PT Evaluation-Current Subjective Patient agrees to PT. No c/o. Objective Patient Orientation: Normal For Age Attachments: NG Tube, Oxygen (8L HF NC), Velasco Catheter, IV ROM/Strength ROM Lower Extremities bilateral LE WFL Strength Lower Extremities 4-/5 grossly all planes Integumentary/Posture Integumentary refer to nursing notes Bowel Incontinence: No Bladder Incontinence: Velasco Cath Posture WFL Neuromuscular (Tone, Coordination, Reflexes) grossly intact Sensory Vision: Wears Glasses Hearing: Functional Sensation Right Lower Extremit: Intact Sensation Left Lower Extremity: Intact Transfers Roll Left to Right (QC): 4 Sit to Lying (QC): 4 Lying to Sitting/Side of Bed(Q: 4 Sit to Stand (QC): 4 Chair/Jae-jo-Qcrhr Xfer(QC): 4 Gait Does the Patient Walk?: Yes Mode of Locomotion: Walk Anticipated Mode of Locomotion: Walk Walk 10 feet (QC): 4 Walk 50 ft with 2 Turns(QC): 4 Walk 150 ft (QC): 4 Distance: 200' Gait Assistive Device: FWW Balance Sitting Static: Normal Sitting Dynamic: Normal Standing Static: Normal Standing Dynamic: Normal Assessment/Needs 80 y.o. female, will be seen short term by skilled PT to address functional strength and mobility. Patient instructed to ambulate PRN with nursing staff. 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 PT [facility] Goals Time Frame: Mar 23, 2020 Roll Left & Right (QC): 6 Sit to Lying (QC): 6 Lying-Sitting on Side/Bed(QC): 6 Sit to Stand (QC): 6 Chair/Nqx-ut-Lecig Xfer(QC): 6 Toilet Transfer (QC): 6 Does the Patient Walk: Yes Walk 10 feet (QC): 6 Walk 50ft with 2 Turns (QC): 6 Walk 150 ft (QC): 6 PT Plan Treatment/Plan Treatment Plan: Continue Plan of Care Treatment Plan: Bed Mobility, Education, Functional Activity Ben, Functional Strength, Gait, Safety, Therapeutic Exercise, Transfers Treatment Duration: Mar 23, 2020 Frequency: 6 times per week Estimated Hrs Per Day: .25 hour per day Patient and/or Family Agrees t: Yes Discharge Recommendations Therapy Discharge Recommendati: Home & Family Time/GCodes Time In: 1000 Time Out: 1015 Total Billed Treatment Time: 15 Total Billed Treatment 1 visit EVModC 15 min SHONDA FARIAS PT Mar 18, 2020 12:07
--- NOTE | 2020-03-18 13:46 | Occupational Therapy Eval ---
OT Evaluation-General/PLF Medical Diagnosis Admission Date Mar 17, 2020 at 07:25 Medical Diagnosis: A-fib with RVR Onset Date: Mar 17, 2020 Therapy Diagnosis Therapy Diagnosis: decreased ADL status Precautions Precautions/Isolations: Fall Prevention, Standard Precautions Referral Physician: Matilde Rooney Reason: Evaluation/Treatment Medical History Pertinent Medical History: HTN Current History New onset Afib with RVR after emergent small bowel obstruction s/p surgical resection 03/15/2020 Reviewed History: Yes Social History Home: Single Level Current Living Status: Spouse ADL-Prior Level of Function SCALE: Activities may be completed with or without assistive devices. 9-Jmckusxylc-tljezxy completes the activity by him/herself with no assistance from a helper. 5-Set-up or Clean-up Assistance-helper sets up or cleans up; patient completes activity. [place] assists only prior to or following the activity. 4-Supervision or Touching Assistance-helper provides verbal cues and/or touching/steadying and/or contact guard assistance as patient completes activity. Assistance may be provided throughout the activity or intermittently. 3-Partial/Moderate Assistance-helper does LESS THAN HALF the effort. [place] lifts, holds or supports trunk or limbs, but provides less than half the effort. 2-Substantial/Maximal Assistance-helper does MORE THAN HALF the effort. [place] lifts or holds trunk or limbs and provides more than half the effort. 8-Prhrbxjcd-wrebms does ALL the effort. Patient does none of the effort to comp lete the activity. Or, the assistance of 2 or more helpers is required for the patient to complete the activity. If activity was not attempted, code reason: 7-Patient Refused. 9-Not Applicable-not attempted and the patient did not perform the activity before the current illness, exacerbation or injury. 10-Not Attempted due to Environmental Limitations-(lack of equipment, weather restraints, etc.). 88-Not Attempted due to Medical Conditions or Safety Concerns. ADL PLOF Comments Pt indicates being independent with all ADLS and functional mobility at OF, no AD/AE. Pt was able to complete all self care tasks, mowing the lawn, and shopping. Self Care: Independent Functional Cognition: Independent DME/Equipment: Bath Chair, Shower OT Current Status Subjective Pt seated in recliner eating lunch. Pt agreeable to OT evaluation and tx. Mental Status/Objective Patient Orientation: Person, Place, Time, Situation Attachments: Velasco Catheter, IV, NG Tube, Oxygen Current Glasses/Contacts: Yes Hearing Aids: No Dentures/Partials: Yes Hand Dominance: Right Upper Extremity ROM WFL Upper Extremity Coordination WFL Upper Extremity Sensation WFL Upper Extremity Strength grossly 4/5 ADL-Treatment Eating (QC): 6 (Pt independent eating lunch (jello, tea, popsicle) ) Oral Hygiene (QC): 6 (based on clinical judgement, pt would be independent with task.) Other Treatments Pt seated in recliner, eating lunch. OT educated pt on purpose and benefit of OT, she verbalized understanding. Pt then provided information about PLOF and home set up, and participated in UE screen. Pt provided information about recent events leading up to her hospitalization, surgery, and transfer to [facility] from [facility]. Pt feels like she may have slight difficulty with ADLs at this time, but overall would be able to manage. She has been very active at [facility], doing yard work and shopping. She wants to be able to get back to doing all the tasks she has done at [facility]. OT educated pt on OT POC while she is admitted in the hospital, she verbalized agreement. Pt declined needing to use the restroom at this time, and declined getting out of the chair as she was still eating. Post tx, pt seated in recliner, call light in reach and all needs met. Education OT Patient Education: Correct positioning, Energy conservation, Modified ADL techniques, Progress toward Goal/Update tx plan, Purpose of tx/functional activities, Rehab process Teaching Recipient: Patient Teaching Methods: Discussion Response to Teaching: Verbalize Understanding OT Retirement Goals Retirement Goals Time Frame: Mar 25, 2020 Eating (QC): 6 Oral Hygiene (QC): 6 Toileting Hygiene (QC): 6 Shower/Bathe Self (QC): 6 Upper Body Dressing (QC): 6 Lower Body Dressing (QC): 6 On/Off Footwear (QC): 6 Additional Goals: 1-Demonstrate ADL Tasks, 2-Verbalize Understanding, 3-ImproveStrength/Ben 1=Demonstrate adherence to instructed precautions during ADL tasks. 2=Patient will verbalize/demonstrate understanding of assistive devices/modifications for ADL. 3=Patient will improve strength/tolerance for activity to enable patient to perform ADL's. OT Education/Plan Problem List/Assessment Assessment: Decreased Activ Tolerance, Decreased UE Strength, Impaired I ADL's, Impaired Self-Care Skills Pt would benefit from skilled short term OT in order to increase BUE strength and functional endurance and increase independence with ADLs to maximize LOF for safe return home. Discharge Recommendations Plan/Recommendations: Continue POC Treatment Plan/Plan of Care Patient would benefit from OT for education, treatment and training to promote independence in ADL's, mobility, safety and/or upper extremity function for ADL's. Plan of Care: ADL Retraining, Functional Mobility, UE Funct Exercise/Act Treatment Duration: Mar 25, 2020 Frequency: 5 times per week Estimated Hrs Per Day: .25 hour per day Rehab Potential: Fair Time/GCodes Start Time: 13:16 Stop Time: 13:29 Total Time Billed (hr/min): 13 Billed Treatment Time 1, EDEL FLETCHER OT Mar 18, 2020 13:46
--- NOTE | 2020-03-18 15:03 | NUR ---
CM/SS: Visited with pt as per plan for discharge and other needs when she is dismissed. Plan: Pt is from home and will likely return there with services to be determined Summary: Pt is sitting up in her chair - and reports feeling better. Pt reports she was living at home independently prior to her time of admission. Pt reports she lives with . Pt would be open to home care if needed at time of discharge. Pt thinks she has had [facility] at home in the past for her . This worker will follow up with pt once discharge plan or date is determined. This worker will follow up.
[2020-03-18] MEDS ORDERED: MAGNESIUM 1 GM/100 ML IVPB 100 ML IV ONE (17:00)
--- NOTE | 2020-03-18 17:43 | Progress Note - Cardiology ---
Cardiology SOAP Progress Note Subjective: Gen malaise and weakness Shortness of breath with exertion No cp or palp or syncope No n/v Objective: I&O/Vital Signs 03/18/20 03/18/20 03/18/20 03/18/20 06:41 08:47 10:53 11:54 Temp 37.7 Pulse 76 88 101 Resp 20 18 B/P (MAP) 127/59 (81) 174/95 (121) Pulse Ox 92 94 95 O2 Delivery High Flow N/C High Flow N/C High Flow N/C O2 Flow Rate 8.00 8.00 6.00 03/18/20 03/18/20 12:54 16:00 Temp 37.5 Pulse 80 122 Resp 18 B/P (MAP) 163/76 (105) Pulse Ox 92 O2 Delivery High Flow N/C O2 Flow Rate 6.00 03/18/20 00:00 Intake Total 450 ml Output Total 500 ml Balance -50 ml Constitutional: AAO x 3, well-developed, well-nourished Respiratory: No accessory muscle use; other (fair to good air entry) Cardiovascular: regular rate-rhythm, S1 and S2, systolic murmur (soft GREGORIO at card base) Gastrointestional: other (NGT in place, bs absent, we did not palpate abdomen due to recent post-op state) Extremities: No clubbing, No cyanosis, No significant edema Neurologic/Psychiatric: oriented x 3, other (moves all limbs equally) Skin: No rash on exposed areas, No ulcerations on exposed areas Results/Procedures: Labs Laboratory Tests 03/18/20 05:35: White Blood Count 15.1H, Red Blood Count 3.33L, Hemoglobin 9.9L, Hematocrit 31L, Mean Corpuscular Volume 94, Mean Corpuscular Hemoglobin 30, Mean Corpuscular Hemoglobin Concent 32, Red Cell Distribution Width 13.1, Platelet Count 319, Mean Platelet Volume 10.2, Immature Granulocyte % (Auto) 1, Neutrophils (%) (Auto) 91H, Lymphocytes (%) (Auto) 4L, Monocytes (%) (Auto) 4, Eosinophils (%) (Auto) 0, Basophils (%) (Auto) 0, Neutrophils # (Auto) 13.8H, Lymphocytes # (Auto) 0.5L, Monocytes # (Auto) 0.7, Eosinophils # (Auto) 0.0, Basophils # (Auto) 0.0, Immature Granulocyte # (Auto) 0.1, Sodium Level 142, Potassium Level 3.0L, Chloride Level 109H, Carbon Dioxide Level 17L, Anion Gap 16H, Blood Urea Nitrogen 17, Creatinine 0.68, Estimat Glomerular Filtration Rate > 60, BUN/Creatinine Ratio 25, Glucose Level 81, Calcium Level 8.4L, Corrected Calcium 9.4, Magnesium Level 2.1, Total Bilirubin 0.6, Aspartate Amino Transf (AST/SGOT) 18, Alanine Aminotransferase (ALT/SGPT) 8, Alkaline Phosphatase 46, Total Protein 5.5L, Albumin 2.7L Microbiology 03/17/20 MRSA Screen - Final, Complete MRSA not isolated A/P: Assessment: PAF with RVR first diagnosed on 03/17/20. Recurrent PAF w/ RVR on 03/18/20 in the setting of electrolyte abnormalities Echo on 03/17/20: LVEF 60-65%, PASP 25-30 mmHg S/p bowel resection and R inguinal hernia repair H/o hypertension Plan: * Increase long-acting dilt for vent rate control * Add iv bb * Replenish lytes * Continue Apixaban for stroke prophylaxis * Monitor labs SERGEY HUYNH MD FACP [facility] Mar 18, 2020 17:42
[2020-03-18] MEDS: meTOprolol 5 MG/5 ML (LOPRESSOR) VIAL IV SCH ×2 (17:49→20:39)
[2020-03-18] MEDS: ONDANSETRON 4 MG/2 ML (SDV) Z0FRAN IVP PRN (18:12)
[2020-03-18] MEDS ORDERED: PIPERACILLIN/TAZOBACTAM (BULK) 4.5 GM in NS (IVPB) 100 ML IV NR (18:30)
[2020-03-18] MEDS: POTASSIUM CL 10MEQ/50ML IVPB 50 ML IV SCH ×4 (18:40→21:27)
--- NOTE | 2020-03-18 21:10 | NUR ---
Notified by tele nurse that patient's HR was bouncing around from the one teens' up to the 130's and irregular. Pt denied any pain or SOB, BP elevated. Dr Palomares contacted who gave me several orders. Per Dr Palomares if patient's HR sustains 150' or above he should be contacted. He then added if patient is asymptomatic no need to contact him. Patient given 2.5 MG Lopressor at 1755 and SBP decreased from 170's to the 118. Unable to give Cardizem PO per Dr Palomares's due to patient feeling nauseated and vomiting. Dr Palomares indicated to give to patient when her nausea was under control.
[2020-03-18] MEDS ORDERED: FAMOTIDINE 20MG/2ML IV (PEPCID) ONE (23:28)
[2020-03-18] MEDS: FAMOTIDINE 20MG/2ML IV (PEPCID) IVP SCH (23:52)
[2020-03-18] MEDS: PIPERACILLIN/TAZOBACTAM (BULK) 4.5 GM in NS (IVPB) 100 ML IV SCH (23:52)
[2020-03-19 00:33] VITALS: BP 120/59
[2020-03-19] MEDS: meTOprolol 5 MG/5 ML (LOPRESSOR) VIAL IV SCH ×8 (00:39→21:09)
[2020-03-19] MEDS: NS IV 1000 ML 1,000 ML IV SCH ×3 (03:06→18:40)
[2020-03-19 03:16] VITALS: BP 117/59
--- NOTE | 2020-03-19 05:51 | Progress Note - Hospitalist ---
Subjective HPI/CC On Admission Date Seen by Provider: Mar 19, 2020 Time Seen by Provider: 10:00 CC: AF w/RVR new onset transferred from [facility] for higher level of care to ICU HPI: This is a 80yoWF clinic patient of Dr Burch who was transferred from [facility] to [facility] ICU due to new onset AF w/RVR after an emergent small bowel obstruction s/p surgical resection by Dr Anguiano on 03/15. Patient has now converted to NSR. Dr Palomares consulted and placed her on OAC and PO Cardizem and is now ready for move to 4th floor. CLD initiated. Checked meds and labs and reviewed [facility] records. Subjective/Events-last exam Catheter will likely be discontinued along with NG tube since she is having a BM WBC 13.4 down from 15.0 Hgb 9.8 Iron level pending but gave one dose of IV iron Review of Systems General: Fatigue Pulmonary: Dyspnea Gastrointestinal: Abdominal Pain Objective Exam Vital Signs Vital Signs Date Time Temp Pulse Resp B/P (MAP) Pulse Ox O2 Delivery O2 Flow Rate FiO2 03/19/20 19:55 High Flow N/C 6.00 03/19/20 19:16 36.5 80 16 125/67 (86) 90 Capillary Refill : NONE General Appearance: No Apparent Distress, WD/WN, Chronically ill Respiratory: Chest Non Tender, Lungs Clear, Normal Breath Sounds, No Accessory Muscle Use, No Respiratory Distress Cardiovascular: Regular Rate, Rhythm, No Edema, No Gallop, No JVD, No Murmur, Normal Peripheral Pulses Neurologic/Psychiatric: Alert, Oriented x3, No Motor/Sensory Deficits, Normal Mood/Affect Results/Procedures Lab Laboratory Tests 03/19/20 05:52 Patient resulted labs reviewed. Assessment/Plan Assessment and Plan Assess & Plan/Chief Complaint Assessment: AF w/RVR new onset requiring transfer from [facility] to [facility] ICU now converted to NSR after Cardizem given at [facility] Recent emergent SBO s/o resection 03/15/[address] Anguiano at [facility] HTN HLP Post op ileus Plan: Pain control OAC Cardizem 03/18/20: Replace potassium Monitor HR AF Pain meds PT OT 03/19/20: Monitor BP and HR DC Catheter when surgery approves NGT DC? Diagnosis/Problems Diagnosis/Problems (1) Atrial fibrillation with rapid ventricular response Clinical Quality Measures DVT/VTE Risk/Contraindication: Risk Factor Score Per Nursin RFS Level Per Nursing on Admit: 4+=Very High KEYA VELA DO Mar 19, 2020 05:51
[2020-03-19 06:13] LABS: HEMOGLOBIN 9.8 g/dL (11.5-16.0); MEAN PLATELET VOLUME 9.8 fL (9.0-12.2); WHITE BLOOD COUNT 13.4 10^3/uL (4.3-11.0)
[2020-03-19 06:34] LABS: BUN/CREATININE RATIO 24; CALCIUM 8.5 MG/DL (8.5-10.1); CARBON DIOXIDE 23 MMOL/L (21-32); CHLORIDE 112 MMOL/L (98-107); CREATININE SERUM 0.58 MG/DL (0.60-1.30); GFR ESTIMATED > 60; GLUCOSE 113 MG/DL (70-105); MAGNESIUM 2.2 MG/DL (1.6-2.4); POTASSIUM 3.4 MMOL/L (3.6-5.0); SODIUM 145 MMOL/L (135-145)
--- NOTE | 2020-03-19 07:31 | Progress Note - Surgery ---
KLEVER MCCONNELL MED STUDENT 03/19/20 0731: Subjective Date Seen by a Provider: Mar 19, 2020 Time Seen by a Provider: 06:40 Subjective/Events-last exam Pt seen and examined. She was resting in bed in NAD. Per pt and nursing, she had an episode of Afib w/ RVR last night where she felt nauseated and lightheaded. Cardiology was notified and she was given Lopressor, with resulting improvement of heart rate. This AM, she denies chest pain, SOB, N/V. Her abd pain/tenderness is 2/10. She says that she passed a small amount of gas yesterday and that she feels the pressure to pass more this morning. NG tube in place, clamped this morning. Per nursing, NG tube has been draining large amounts of bilious fluid. She says that she feels the urge to urinate at times; she has a clark in place and nursing has been adjusting it to allow it to drain. Review of Systems General: No Chills HEENT: No Head Aches Pulmonary: No Dyspnea Cardiovascular: Lt Headedness; No: Chest Pain, Palpitations Gastrointestinal: Nausea, Vomiting, Abdominal Pain Genitourinary: No Dysuria Neurological: No: Numbness Objective Exam Vital Signs Date Time Temp Pulse Resp B/P (MAP) Pulse Ox O2 Delivery O2 Flow Rate FiO2 03/19/20 03:16 36.9 89 18 117/59 (78) 91 High Flow N/C 6.00 03/19/20 01:00 87 03/19/20 00:33 37.0 92 18 120/59 (79) 93 High Flow N/C 6.00 03/18/20 21:29 91 High Flow N/C 6.00 03/18/20 19:55 High Flow N/C 5.00 03/18/20 19:46 37.2 113 18 126/61 (82) 94 High Flow N/C 6.00 03/18/20 19:00 118 03/18/20 18:00 118 118/74 (89) 03/18/20 17:50 130 174/86 (115) 03/18/20 16:00 37.5 122 18 163/76 (105) 92 High Flow N/C 6.00 03/18/20 12:54 80 03/18/20 11:54 101 18 174/95 (121) 95 High Flow N/C 6.00 03/18/20 10:53 94 High Flow N/C 8.00 03/18/20 08:47 37.7 88 20 127/59 (81) 92 High Flow N/C 8.00 03/18/20 08:00 93 High Flow N/C 6.00 I & O 03/19/20 07:00 Intake Total 3360 ml Output Total 3150 ml Balance 210 ml Capillary Refill : NONE General Appearance: No Apparent Distress, WD/WN, Chronically ill HEENT: PERRL/EOMI Neck: Full Range of Motion, Normal Inspection, Non Tender Respiratory: Chest Non Tender, Lungs Clear, Normal Breath Sounds, No Accessory Muscle Use, No Respiratory Distress Cardiovascular: Regular Rate, Rhythm, No Edema, No Gallop, No JVD, No Murmur, N ormal Peripheral Pulses Gastrointestinal: distended, tenderness Extremity: Normal Inspection, Non Tender Neurologic/Psychiatric: Alert, Oriented x3, No Motor/Sensory Deficits, Normal Mood/Affect Skin: Normal Color, Warm/Dry, Other (Lap sites to abd CDI, secured with candis) Lymphatic: No Adenopathy Results Lab Laboratory Tests 03/19/20 05:52: White Blood Count 13.4H, Red Blood Count 3.30L, Hemoglobin 9.8L, Hematocrit 30L, Mean Corpuscular Volume 92, Mean Corpuscular Hemoglobin 30, Mean Corpuscular Hemoglobin Concent 32, Red Cell Distribution Width 13.2, Platelet Count 389, Mean Platelet Volume 9.8, Sodium Level 145, Potassium Level 3.4L, Chloride Level 112H, Carbon Dioxide Level 23, Anion Gap 10, Blood Urea Nitrogen 14, Creatinine 0.58L, Estimat Glomerular Filtration Rate > 60, BUN/Creatinine Ratio 24, Glucose Level 113H, Calcium Level 8.5, Magnesium Level 2.2 Microbiology 03/17/20 MRSA Screen - Final, Complete MRSA not isolated Assessment/Plan Assessment/Plan Assessment/Plan S/P SBR and RIH repair 03/15 Hypokalemia - improving, K 3.4 Afib with RVR Leukocytosis - improving, 13.4 POD#4 s/p small bowel resection, R inguinal hernia repair Passed flatus once if continue will pull ng tube and clears as tolerated Zosyn started yesterday, leukocytosis slightly down from yesterday Anticoagulation due to Afib rvr IS encouraged, Ambulate Continue to monitor VS/labs, pain, flatus/bowel movement Clinical Quality Measures DVT/VTE Risk/Contraindication: Risk Factor Score Per Nursin RFS Level Per Nursing on Admit: 4+=Very High KVNG ANGUIANO DO 03/19/20 0689: Subjective Subjective/Events-last exam Feeling better today. Shortness of breath still. Minimal abdominal pain. Passing flatus and BM. afib rvr. NG tube and clark. Adequate urine. Ambulating. Hard time using IS. Denies fever sweats chills shortness of breath or chest pain. WBC decreasing. Objective Exam General Appearance: No Apparent Distress, Chronically ill HEENT: PERRL/EOMI, Normal ENT Inspection Neck: Full Range of Motion, Non Tender Respiratory: Chest Non Tender, No Accessory Muscle Use, Other (minimally labored) Cardiovascular: No JVD, Irregularly Irregular, Tachycardia Gastrointestinal: distended (minimal), tenderness (incisional minimal, clean dry intact) Extremity: Normal Inspection, Non Tender Neurologic/Psychiatric: Alert, Oriented x3, No Motor/Sensory Deficits Skin: Normal Color, Warm/Dry, Other (Lap sites to abd CDI, secured with candis) Lymphatic: No Adenopathy Assessment/Plan Assessment/Plan Assessment/Plan S/P SBR and RIH repair 03/15 Hypokalemia - improving, K 3.4 Afib with RVR Leukocytosis - improving, 13.4 POD#4 s/p small bowel resection, R inguinal hernia repair Passing flatus abd bm pull ng and clark clear liquids Zosyn continued Anticoagulation due to Afib rvr IS encouraged, Ambulate mat protocol Continue to monitor VS/labs, pain, flatus/bowel movement Supervisory-Addendum Brief Verification & Attestation Participated in pt care: history, MDM, physical Personally performed: exam, history, MDM, supervision of care Care discussed with: Medical Student Procedures: n/a Results interpretation: Verified all documentation Verification and Attestation of Medical Student E/M Service A medical student performed and documented this service in my presence. I reviewed and verified all information documented by the medical student and made modifications to such information, when appropriate. I personally performed the physical exam and medical decision making. Kvng Anguiano, Mar 19, 2020,16:49 KLEVER MCCONNELL MED STUDENT Mar 19, 2020 07:31 KVNG ANGUIANO DO Mar 19, 2020 16:49
[2020-03-19 07:46] VITALS: BP 115/79
[2020-03-19] MEDS: PIPERACILLIN/TAZOBACTAM (BULK) 4.5 GM in NS (IVPB) 100 ML IV SCH ×2 (08:35→16:39)
[2020-03-19] MEDS: FAMOTIDINE 20MG/2ML IV (PEPCID) IVP SCH ×2 (08:35→19:55)
[2020-03-19] MEDS: APIXABAN 5 MG (ELIQUIS) TABLET PO SCH ×2 (08:35→19:55)
[2020-03-19] MEDS: RT-ALBUTEROL SULF 2.5 MG/3 ML PRE-MIX VIAL INH SCH ×3 (09:26→21:38)
[2020-03-19] MEDS ORDERED: IRON SUCROSE 200 MG/10 ML (VENOFER) VIAL IV NR (09:50)
--- NOTE | 2020-03-19 10:13 | Progress Note - Cardiology ---
Cardiology SOAP Progress Note Subjective: Sitting up in recliner at the bedside NG tube clamped Reports BM this morning No c/o CP or palpitations C/O mild SOB with exertion C/O fatigue Objective: I&O/Vital Signs 03/19/20 03/20/20 03/20/20 03/20/20 21:31 00:11 01:00 02:09 Temp 37.5 Pulse 82 72 Resp 18 B/P (MAP) 129/60 (83) Pulse Ox 87 91 84 O2 Delivery High Flow N/C High Flow N/C High Flow N/C O2 Flow Rate 7.00 8.00 8.00 03/20/20 03/20/20 03/20/20 03/20/20 02:24 02:54 03:07 06:26 Temp 37.5 37.0 Pulse 82 104 Resp 22 B/P (MAP) 127/68 (87) Pulse Ox 91 87 93 94 O2 Delivery High Flow N/C High Flow N/C High Flow N/C O2 Flow Rate 8.00 12.00 8.00 03/20/20 08:01 Temp 37.4 Pulse 183 Resp 20 B/P (MAP) 129/57 (81) Pulse Ox 93 O2 Delivery High Flow N/C O2 Flow Rate 8.00 03/20/20 00:00 Intake Total 1520 ml Output Total 400 ml Balance 1120 ml Constitutional: AAO x 3, well-developed, well-nourished Respiratory: No accessory muscle use; other (fair to good air entry) Cardiovascular: regular rate-rhythm, S1 and S2, systolic murmur (soft GREGORIO at card base) Gastrointestional: other (NGT in place, bs absent, we did not palpate abdomen due to recent post-op state) Extremities: No clubbing, No cyanosis, No significant edema Neurologic/Psychiatric: oriented x 3, other (moves all limbs equally) Skin: No rash on exposed areas, No ulcerations on exposed areas Results/Procedures: Labs Laboratory Tests 03/20/20 05:33: Urine Color YELLOW, Urine Clarity CLEAR, Urine pH 5.5, Urine Specific [place] 1.010L, Urine Protein NEGATIVE, Urine Glucose (UA) NEGATIVE, Urine Ketones TRACEH, Urine Nitrite NEGATIVE, Urine Bilirubin NEGATIVE, Urine Urobilinogen 0.2, Urine Leukocyte Esterase NEGATIVE, Urine RBC (Auto) 3+H, Urine RBC 50-100H, Urine WBC NONE, Urine Squamous Epithelial Cells 0-2, Urine Crystals PRESENTH, Urine Calcium Oxalate Crystals RAREH, Urine Bacteria NEGATIVE, Urine Casts NONE, Urine Mucus NEGATIVE, Urine Culture Indicated NO 03/20/20 06:05: White Blood Count 13.6H, Red Blood Count 3.28L, Hemoglobin 9.7L, Hematocrit 30L, Mean Corpuscular Volume 92, Mean Corpuscular Hemoglobin 30, Mean Corpuscular Hemoglobin Concent 32, Red Cell Distribution Width 13.2, Platelet Count 451H, Mean Platelet Volume 9.8, Sodium Level 144, Potassium Level 2.8L, Chloride Level 109H, Carbon Dioxide Level 21, Anion Gap 14, Blood Urea Nitrogen 12, Creatinine 0.63, Estimat Glomerular Filtration Rate > 60, BUN/Creatinine Ratio 19, Glucose Level 145H, Calcium Level 8.7, Magnesium Level 1.7 Microbiology 03/17/20 MRSA Screen - Final, Complete MRSA not isolated A/P: Assessment: PAF with RVR first diagnosed on 03/17/20. Recurrent PAF w/ RVR on 03/18/20 in the setting of electrolyte abnormalities Echo on 03/17/20: LVEF 60-65%, PASP 25-30 mmHg S/p bowel resection and R inguinal hernia repair H/o hypertension Plan: * Episode of a-fib with RVR yesterday afternoon - resolved after long-acting dilt dose increased * Add iv bb - change to oral once able to maintain oral intake * Replenish lytes * Continue Apixaban for stroke prophylaxis * Monitor labs LAURY STEPHENSON Mar 19, 2020 10:13
[2020-03-19] MEDS ORDERED: KCL 20 MEQ TAB (K-DUR) PO NR (10:24)
--- NOTE | 2020-03-19 11:40 | Physical Therapy Daily Note ---
PT Daily Note-Current Subjective Patient agrees to PT. Mental Status Patient Orientation: Normal For Age Attachments: NG Tube, Oxygen (8L HF), Velasco Catheter, IV Transfers SCALE: Activities may be completed with or without assistive devices. 5-Vspmfyidou-aturrml completes the activity by him/herself with no assistance from a helper. 5-Set-up or Clean-up Assistance-helper sets up or cleans up; patient completes activity. [place] assists only prior to or following the activity. 4-Supervision or Touching Assistance-helper provides verbal cues and/or touching/steadying and/or contact guard assistance as patient completes activity. Assistance may be provided throughout the activity or intermittently. 3-Partial/Moderate Assistance-helper does LESS THAN HALF the effort. [place] lifts, holds or supports trunk or limbs, but provides less than half the effort. 2-Substantial/Maximal Assistance-helper does MORE THAN HALF the effort. [place] lifts or holds trunk or limbs and provides more than half the effort. 7-Wciuupwvr-vcykbs does ALL the effort. Patient does none of the effort to complete the activity. Or, the assistance of 2 or more helpers is required for the patient to complete the activity. If activity was not attempted, code reason: 7-Patient Refused. 9-Not Applicable-not attempted and the patient did not perform the activity before the current illness, exacerbation or injury. 10-Not Attempted due to Environmental Limitations-(lack of equipment, weather restraints, etc.). 88-Not Attempted due to Medical Conditions or Safety Concerns. Chair/Xvy-ej-Iaxwr Xfer(QC): 4 Toilet Transfer (QC): 3 patient incontinent BM requiring assist to cleanse and putting on clean depends Gait Training Does the Patient Walk?: Yes Distance: 300' Walk 10 feet (QC): 4 Walk 50 ft with 2 Turns(QC): 4 Walk 150 ft (QC): 4 Gait Assistive Device: FWW slow, steady functional gait sequence with no deviation Assessment Patient tolerated treatment well and is highly motivated with probably of catheter and NG tube removal on this date. PT to increase activity as tolerated by patient. PT Concrete Craftsman Goals Concrete Craftsman Goals PT Mcc Goals Time Frame: Mar 23, 2020 Roll Left & Right (QC): 6 Sit to Lying (QC): 6 Lying-Sitting on Side/Bed(QC): 6 Sit to Stand (QC): 6 Chair/Etb-ew-Bwdae Xfer(QC): 6 Toilet Transfer (QC): 6 Does the Patient Walk: Yes Walk 10 feet (QC): 6 Walk 50ft with 2 Turns (QC): 6 Walk 150 ft (QC): 6 PT Plan Treatment/Plan Treatment Plan: Continue Plan of Care Treatment Plan: Bed Mobility, Education, Functional Activity Ben, Functional Strength, Gait, Safety, Therapeutic Exercise, Transfers Treatment Duration: Mar 23, 2020 Frequency: 6 times per week Estimated Hrs Per Day: .25 hour per day Patient and/or Family Agrees t: Yes Time/GCodes Time In: 1045 Time Out: 1112 Total Billed Treatment Time: 27 Total Billed Treatment 1 visit FA x 2 27 min SHONDA FARIAS PT Mar 19, 2020 11:39
[2020-03-19 11:55] VITALS: BP 130/69
--- NOTE | 2020-03-19 12:40 | NUR ---
CM/SS: Visited with pt as to her current status and her plan for discharge. Summary: Pt reports feeling better, and that she is hopeful to get her NG tube removed today and possible the catheter as well. 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 Pt mood is good and she seems to be eager to get better and be able to go home. 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 This worker will follow up with pt later as more is known about her discharge. Pt thanks this worker for visiting today.
--- NOTE | 2020-03-19 14:08 | NUR ---
"RD ASSESSMENT PMHx: hypercholesterolemia; HTN; current - s/p bowel resection PT INTERACTION: Pt was awake and pleasant during nutrition assessment. Pt states current appetite is decent. Note pt currently on Clear Liquid diet, and avg PO intake 25% x1d, per chart review. Pt states following a regular diet at home, and has no issues with chewing/swallowing food. Pt states some recent issues with nausea, vomiting, and constipation, and that her last BM was 03/19. Note pt not currently on bowel regimen per chart review. Pt states recent 3-4# wt loss over the summer. Note unable to determine recent wt hx, per chart review. ABNORMAL NUTRITION-RELATED LAB VALUES LOW: K 3.4; cr 0.58; HIGH: Cl 112; glu 113; Est. kcal needs: 5009-0872 kcal | 20-25 kcal/kg Est. Pro needs: 53-66 g Pro | 0.8-1.0 g Pro/kg PES STATEMENT: Inadequate oral intake (NI-2.1) related to loss of appetite, nausea, vomiting, and constipation, as evidenced by pt interview, and avg PO intake 25% x1d. INTERVENTION: Continue with current diet order of Clear Liquid diet. Pt may benefit from diet advancement as medically able and as tolerated. Pt may benefit from nutrition supplementation if PO intake remains low. Will continue to follow and reassess as pt needs, intake, and status change. Isatu CONTRERAS, MS RD LD [phone] cell"
--- NOTE | 2020-03-19 15:14 | Occupational Ther Daily Note ---
OT Current Status-Daily Note Subjective Pt alert, sitting in recliner. Pt agrees to therapy. No c/o pain at this time. Mental Status/Objective Patient Orientation: Person, Place, Time, Situation Attachments: Velasco Catheter, IV, NG Tube, Telemetry ADL-Treatment Pt able to set up own meal and uses regular utensils (liquid diet). Discussed using AE for lower body dressing due to pt inability to bend forward due to abdominal incision. Pt demonstrated ability to use sock aide to don socks, stated that pt had a sock aide at home. Pt stated that at home slip on shoes will be used. Therapy Code Descriptions/Definitions Functional [place] Measure: 0=Not Assessed/NA 4=Minimal Assistance 1=Total Assistance 5=Supervision or Setup 2=Maximal Assistance 6=Modified [place] 3=Moderate Assistance 7=Complete IndependenceSCALE: Activities may be completed with or without assistive devices. 2-Hcqcqzwose-rwgxrrl completes the activity by him/herself with no assistance from a helper. 5-Set-up or Clean-up Assistance-helper sets up or cleans up; patient completes activity. [place] assists only prior to or following the activity. 4-Supervision or Touching Assistance-helper provides verbal cues and/or touching/steadying and/or contact guard assistance as patient completes activity. Assistance may be provided throughout the activity or intermittently. 3-Partial/Moderate Assistance-helper does LESS THAN HALF the effort. [place] lift s, holds or supports trunk or limbs, but provides less than half the effort. 2-Substantial/Maximal Assistance-helper does MORE THAN HALF the effort. [place] lifts or holds trunk or limbs and provides more than half the effort. 6-Fedizsfym-ocsuqe does ALL the effort. Patient does none of the effort to complete the activity. Or, the assistance of 2 or more helpers is required for the patient to complete the activity. If activity was not attempted, code reason: 7-Patient Refused. 9-Not Applicable-not attempted and the patient did not perform the activity before the current illness, exacerbation or injury. 10-Not Attempted due to Environmental Limitations-(lack of equipment, weather restraints, etc.). 88-Not Attempted due to Medical Conditions or Safety Concerns. Eating (QC): 6 On/Off Footwear: 5 Other Treatment Pt able to complete 4 B UE exercises against gravity 1 set 10 reps. Skilled instructions required for modifications and techniques. After session, pt sitting in recliner with call light/phone in reach. All needs met in room. OT Hair Dresser Goals Hair Dresser Goals Time Frame: Mar 25, 2020 Eating (QC): 6 Oral Hygiene (QC): 6 Toileting Hygiene (QC): 6 Shower/Bathe Self (QC): 6 Upper Body Dressing (QC): 6 Lower Body Dressing (QC): 6 On/Off Footwear (QC): 6 Additional Goals: 1-Demonstrate ADL Tasks, 2-Verbalize Understanding, 3- ImproveStrength/Ben 1=Demonstrate adherence to instructed precautions during ADL tasks. 2=Patient will verbalize/demonstrate understanding of assistive devices/modifications for ADL. 3=Patient will improve strength/tolerance for activity to enable patient to perform ADL's. OT Education/Plan Problem List/Assessment Assessment: Decreased Activ Tolerance, Decreased UE Strength, Impaired Self- Care Skills Pt would benefit from skilled short term OT in order to increase BUE strength and functional endurance and increase independence with ADLs to maximize LOF for safe return home. Discharge Recommendations Plan/Recommendations: Continue POC Treatment Plan/Plan of Care Patient would benefit from OT for education, treatment and training to promote independence in ADL's, mobility, safety and/or upper extremity function for ADL's. Plan of Care: ADL Retraining, Functional Mobility, UE Funct Exercise/Act Treatment Duration: Mar 25, 2020 Frequency: 5 times per week Estimated Hrs Per Day: .25 hour per day Rehab Potential: Fair Time/GCodes Start Time: 14:35 Stop Time: 14:50 Total Time Billed (hr/min): 25 Billed Treatment Time 1 visit-EX 1 (10 min) ADL 1 (15 min) MARCELO ANDERSON Mar 19, 2020 15:14
--- NOTE | 2020-03-19 16:01 | NUR ---
PATIENT'S CALLED FOR UPDATES. DR. FERNANDEZ TALKED TO HIM.
[2020-03-19 16:06] VITALS: BP 127/60
--- NOTE | 2020-03-19 17:35 | Progress Note - Cardiology ---
Cardiology SOAP Progress Note Subjective: Gen malaise and weakness No cp or palp or syncope No shortness of breath at rest No n/v Objective: I&O/Vital Signs 03/19/20 03/19/20 03/19/20 03/19/20 06:38 07:46 08:00 09:26 Temp 37.0 Pulse 88 91 Resp 19 B/P (MAP) 115/79 (91) Pulse Ox 90 93 90 O2 Delivery High Flow N/C High Flow N/C High Flow N/C O2 Flow Rate 6.00 6.00 6.00 03/19/20 03/19/20 03/19/20 03/19/20 11:55 12:50 15:17 16:06 Temp 37.2 35.9 Pulse 92 94 93 Resp 19 20 B/P (MAP) 130/69 (89) 127/60 (82) Pulse Ox 93 90 92 O2 Delivery High Flow N/C High Flow N/C High Flow N/C O2 Flow Rate 6.00 7.00 7.50 03/19/20 00:00 Intake Total 1990 ml Output Total 2500 ml Balance -510 ml Constitutional: AAO x 3, well-developed, well-nourished Respiratory: No accessory muscle use; other (fair to good air entry) Cardiovascular: regular rate-rhythm, S1 and S2, systolic murmur (soft GREGORIO at card base) Gastrointestional: other (NGT in place, bs absent, we did not palpate abdomen due to recent post-op state) Extremities: No clubbing, No cyanosis, No significant edema Neurologic/Psychiatric: oriented x 3, other (moves all limbs equally) Skin: No rash on exposed areas, No ulcerations on exposed areas Results/Procedures: Labs Laboratory Tests 03/19/20 05:52: White Blood Count 13.4H, Red Blood Count 3.30L, Hemoglobin 9.8L, Hematocrit 30L, Mean Corpuscular Volume 92, Mean Corpuscular Hemoglobin 30, Mean Corpuscular Hemoglobin Concent 32, Red Cell Distribution Width 13.2, Platelet Count 389, Mean Platelet Volume 9.8, Sodium Level 145, Potassium Level 3.4L, Chloride Level 112H, Carbon Dioxide Level 23, Anion Gap 10, Blood Urea Nitrogen 14, Creatinine 0.58L, Estimat Glomerular Filtration Rate > 60, BUN/Creatinine Ratio 24, Glucose Level 113H, Calcium Level 8.5, Magnesium Level 2.2 Microbiology 03/17/20 MRSA Screen - Final, Complete MRSA not isolated A/P: Assessment: PAF with RVR first diagnosed on 03/17/20. Recurrent PAF w/ RVR on 03/18/20 in the setting of electrolyte abnormalities Echo on 03/17/20: LVEF 60-65%, PASP 25-30 mmHg S/p bowel resection and R inguinal hernia repair H/o hypertension Plan: * Episode of a-fib with RVR yesterday afternoon - resolved after long-acting dilt dose increased * Add iv bb - change to oral once able to maintain oral intake * Replenish lytes * Continue Apixaban for stroke prophylaxis * Monitor labs SERGEY HUYNH MD FACP FAC CCDS Mar 19, 2020 17:35
[2020-03-19 19:16] VITALS: BP 125/67
[2020-03-19] MEDS: ALPRAZolam 0.25 MG (XANAX) TAB PO PRN (23:23)
[2020-03-20] VITALS (7 sets, daily range): BP systolic 118–133; BP diastolic 57–74
[2020-03-20] MEDS: PIPERACILLIN/TAZOBACTAM (BULK) 4.5 GM in NS (IVPB) 100 ML IV SCH ×3 (00:14→15:43)
[2020-03-20] MEDS: meTOprolol 5 MG/5 ML (LOPRESSOR) VIAL IV SCH ×4 (00:15→08:12)
[2020-03-20] MEDS: RT-ALBUTEROL SULF 2.5 MG/3 ML PRE-MIX VIAL INH SCH (02:09)
[2020-03-20] MEDS ORDERED: RT-ALBUTEROL/IPRATROPIUM 3 ML (DUONEB) VIAL INH PRN (02:30)
--- NOTE | 2020-03-20 02:35 | NUR ---
Dr. Clayton notified of pt having expiratory wheezes and is now requiring 8L (hi lorena), ivfs continue to infuse at 125 mls/hr, and also that RT is changing breathing treatments to duo neb. New order rec to [place] IV fluids. will continue to monitor.
--- NOTE | 2020-03-20 03:15 | NUR ---
Dr. Clayton notified of RT having to turn oxygen flow up to 12 liters to maintain sats around 92-93%. New orders rec to do chest xray this morning, initiate vapotherm if necessary, and Lasix 20mg IV x 1 dose (if okay with Dr. Palomares).
--- NOTE | 2020-03-20 03:23 | NUR ---
Dr. Palomares notified and ok with giving Lasix 20mg IV x 1 dose now.
[2020-03-20] MEDS ORDERED: FUROSEMIDE 40 MG/4 ML INJ (LASIX) ONE (03:30)
[2020-03-20] MEDS ORDERED: FUROSEMIDE 40 MG/4 ML INJ (LASIX) IVP ONE (03:30)
[2020-03-20 05:42] LABS: BILIRUBIN,URINE NEGATIVE (NEGATIVE); CLARITY,URINE CLEAR; COLOR,URINE YELLOW; GLUCOSE, URINE (UA) NEGATIVE (NEGATIVE); KETONES,URINE TRACE (NEGATIVE); LEUKOCYTE ESTERASE ,URINE NEGATIVE (NEGATIVE); NITRITE,URINE NEGATIVE (NEGATIVE); PH,URINE 5.5 (5-9); PROTEIN,URINE NEGATIVE (NEGATIVE)
[2020-03-20 05:58] LABS: BACTERIA,URINE NEGATIVE /HPF; CALCIUM OXALATE CRYSTALS,UR RARE /LPF; RBC,URINE 50-100 /HPF; SQUAMOUS EPITHELIAL CELL,UR 0-2 /HPF
--- NOTE | 2020-03-20 06:18 | Progress Note - Hospitalist ---
Subjective HPI/CC On Admission Date Seen by Provider: Mar 20, 2020 Time Seen by Provider: 10:00 CC: AF w/RVR new onset transferred from [facility] [place] [place] for higher level of care to ICU HPI: This is a 80yoWF clinic patient of Dr Burch who was transferred from [facility] [place] [place] to [facility] ICU due to new onset AF w/RVR after an emergent small bowel obstruction s/p surgical resection by Dr Anguiano on 03/15. Patient has now converted to NSR. Dr Palomares consulted and placed her on OAC and PO Cardizem and is now ready for move to 4th floor. CLD initiated. Checked meds and labs and reviewed [facility] [place] [place] records. Subjective/Events-last exam Had respiratory distress early this morning at 0230 IV Lasix improved situation Hep-Lock IV fluid Patient was placed on Vapotherm Dr. Marcelino was consulted Conferred with Dr. Anguiano Counseled patient in depth regarding the need to be patient with herself and not be so anxious that could cause increased shortness of breath Check meds and labs Conferred with RN Using incentive spirometer Review of Systems General: Fatigue Pulmonary: Dyspnea, Cough Neurological: Confusion Focused Exam Lactate Level 03/20/20 14:20: Lactic Acid Level 1.29 03/21/20 06:50: Lactic Acid Level 0.99 Objective Exam Vital Signs Vital Signs Date Time Temp Pulse Resp B/P (MAP) Pulse Ox O2 Delivery O2 Flow Rate FiO2 03/21/20 19:22 36.4 103 20 123/53 (76) 97 Nasal Cannula 4.00 03/21/20 08:00 95 Capillary Refill : NONE General Appearance: No Apparent Distress, WD/WN, Anxious, Chronically ill Respiratory: No Accessory Muscle Use, No Respiratory Distress, Decreased Breath Sounds Cardiovascular: Regular Rate, Rhythm Neurologic/Psychiatric: Alert, Oriented x3, No Motor/Sensory Deficits, Normal Mood/Affect Results/Procedures Lab Laboratory Tests 03/21/20 06:15 03/21/20 16:00 Patient resulted labs reviewed. Assessment/Plan Assessment and Plan Assess & Plan/Chief Complaint Assessment: AF w/RVR new onset requiring transfer from [facility] [place] [place] to [facility] ICU now converted to NSR after Cardizem given at [facility] [place] [place] Recent emergent SBO s/o resection 03/15/[address] Anguiano at [facility] [place] [place] HTN HLP Post op ileus Plan: Pain control OAC Cardizem 03/18/20: Replace potassium Monitor HR AF Pain meds PT OT 03/19/20: Monitor BP and HR DC Catheter when surgery approves NGT DC? 03/20/20: DC NGT HLIVF? O2 IS IV Lasix Consult Dr Marcelino Diagnosis/Problems Diagnosis/Problems (1) Atrial fibrillation with rapid ventricular response Clinical Quality Measures DVT/VTE Risk/Contraindication: Risk Factor Score Per Nursin RFS Level Per Nursing on Admit: 4+=Very High KEYA VELA DO Mar 20, 2020 06:18
[2020-03-20] MEDS: RT-ALBUTEROL/IPRATROPIUM 3 ML (DUONEB) VIAL INH SCH ×4 (06:26→19:50)
[2020-03-20 06:37] LABS: HEMOGLOBIN 9.7 g/dL (11.5-16.0); MEAN PLATELET VOLUME 9.8 fL (9.0-12.2); WHITE BLOOD COUNT 13.6 10^3/uL (4.3-11.0)
[2020-03-20 06:52] LABS: CHLORIDE 109 MMOL/L (98-107); POTASSIUM 2.8 MMOL/L (3.6-5.0); SODIUM 144 MMOL/L (135-145)
[2020-03-20 06:54] LABS: CALCIUM 8.7 MG/DL (8.5-10.1); GLUCOSE 145 MG/DL (70-105)
[2020-03-20 06:56] LABS: CARBON DIOXIDE 21 MMOL/L (21-32)
[2020-03-20 06:58] LABS: CREATININE SERUM 0.63 MG/DL (0.60-1.30); GFR ESTIMATED > 60
[2020-03-20 06:59] LABS: BUN/CREATININE RATIO 19
[2020-03-20 07:00] LABS: MAGNESIUM 1.7 MG/DL (1.6-2.4)
--- NOTE | 2020-03-20 07:03 | NUR ---
Dr. Clayton notified of K+ at 2.8. New order rec to give 80 meq potassium chloride iv over 8 hrs.
--- NOTE | 2020-03-20 07:30 | Progress Note - Surgery ---
KLEVER MCCONNELL MED STUDENT 03/20/20 0730: Subjective Date Seen by a Provider: Mar 20, 2020 Time Seen by a Provider: 06:20 Subjective/Events-last exam Pt seen and examined. She was laying in bed, NAD. Denies abd pain, N/V, chest pain, SOB. Per nursing, she started having increased difficulty breathing and higher O2 requirements last night and was placed on 12L HFNC and given Lasix. She is doing better this morning. She had 3x bowel movements yesterday that were described as loose, mucoid/bloody per nursing. Review of Systems General: No Chills HEENT: No Head Aches Pulmonary: No Dyspnea, No Cough Cardiovascular: No: Chest Pain, Palpitations, Lt Headedness Gastrointestinal: Other (loose, bloody, mucoid x3 yesterday); No: Nausea, Vomiting, Abdominal Pain Genitourinary: No Dysuria Neurological: Weakness; No: Numbness Objective Exam Vital Signs Date Time Temp Pulse Resp B/P (MAP) Pulse Ox O2 Delivery O2 Flow Rate FiO2 03/20/20 06:26 94 High Flow N/C 8.00 03/20/20 03:07 37.0 104 22 127/68 (87) 93 High Flow N/C 12.00 03/20/20 02:54 87 High Flow N/C 8.00 03/20/20 02:24 37.5 82 91 03/20/20 02:09 84 High Flow N/C 8.00 03/20/20 01:00 72 03/20/20 00:11 37.5 82 18 129/60 (83) 91 High Flow N/C 8.00 03/19/20 21:31 87 High Flow N/C 7.00 03/19/20 19:55 High Flow N/C 6.00 03/19/20 19:16 36.5 80 16 125/67 (86) 90 High Flow N/C 7.50 03/19/20 19:00 80 03/19/20 16:06 35.9 93 20 127/60 (82) 92 High Flow N/C 7.50 03/19/20 15:17 90 High Flow N/C 7.00 03/19/20 12:50 94 03/19/20 11:55 37.2 92 19 130/69 (89) 93 High Flow N/C 6.00 03/19/20 09:26 90 High Flow N/C 6.00 03/19/20 08:00 93 High Flow N/C 6.00 03/19/20 07:46 37.0 91 19 115/79 (91) 90 High Flow N/C 6.00 I & O 03/20/20 07:00 Intake Total 3990 ml Output Total 1250 ml Balance 2740 ml Capillary Refill : NONE General Appearance: No Apparent Distress, WD/WN, Chronically ill HEENT: PERRL/EOMI, Normal ENT Inspection Neck: Full Range of Motion, Normal Inspection, Non Tender, Supple Respiratory: Chest Non Tender, Lungs Clear, No Accessory Muscle Use, No Respiratory Distress, Decreased Breath Sounds (Bilat bases) Cardiovascular: No Gallop, No JVD, No Murmur, Normal Peripheral Pulses, Tachycardia, Other (mild edema to BLE) Gastrointestinal: normal bowel sounds, distended (minimal); No guarding, No rebound; tenderness (incisional minimal, clean dry intact) Extremity: Normal Inspection, Non Tender Neurologic/Psychiatric: Alert, Oriented x3, No Motor/Sensory Deficits, Normal Mood/Affect Skin: Normal Color, Warm/Dry, Other (Lap sites to abd CDI, secured with candis) Lymphatic: No Adenopathy Results Lab Laboratory Tests 03/20/20 05:33: Urine Color YELLOW, Urine Clarity CLEAR, Urine pH 5.5, Urine Specific [place] 1.010L, Urine Protein NEGATIVE, Urine Glucose (UA) NEGATIVE, Urine Ketones TRACEH, Urine Nitrite NEGATIVE, Urine Bilirubin NEGATIVE, Urine Urobilinogen 0.2, Urine Leukocyte Esterase NEGATIVE, Urine RBC (Auto) 3+H, Urine RBC 50-100H, Urine WBC NONE, Urine Squamous Epithelial Cells 0-2, Urine Crystals PRESENTH, Urine Calcium Oxalate Crystals RAREH, Urine Bacteria NEGATIVE, Urine Casts NONE, Urine Mucus NEGATIVE, Urine Culture Indicated NO 03/20/20 06:05: White Blood Count 13.6H, Red Blood Count 3.28L, Hemoglobin 9.7L, Hematocrit 30L, Mean Corpuscular Volume 92, Mean Corpuscular Hemoglobin 30, Mean Corpuscular Hemoglobin Concent 32, Red Cell Distribution Width 13.2, Platelet Count 451H, Mean Platelet Volume 9.8, Sodium Level 144, Potassium Level 2.8L, Chloride Level 109H, Carbon Dioxide Level 21, Anion Gap 14, Blood Urea Nitrogen 12, Creatinine 0.63, Estimat Glomerular Filtration Rate > 60, BUN/Creatinine Ratio 19, Glucose Level 145H, Calcium Level 8.7, Magnesium Level 1.7 Microbiology 03/17/20 MRSA Screen - Final, Complete MRSA not isolated Assessment/Plan Assessment/Plan Assessment/Plan S/P SBR and RIH repair 03/15 Hypokalemia - K 2.8 Afib with RVR Leukocytosis - WBC 13.6; increased from yesterday(13.4) POD#5 s/p small bowel resection, R inguinal hernia repair Tolerating small amounts of clear liquids 3x loose bloody BM's yesterday; monitor for active bleed vs blood from surgery Zosyn continued, additional coverage may be needed Anticoagulation due to Afib rvr IS encouraged, Ambulate MAT protocol Continue to monitor VS/labs, pain, flatus/bowel movement Clinical Quality Measures DVT/VTE Risk/Contraindication: Risk Factor Score Per Nursin RFS Level Per Nursing on Admit: 4+=Very High KVNG ANGUIANO DO 03/21/20 1356: Subjective Subjective/Events-last exam Passing flatus and bowel movements loose slightly bloody. Tolerating liquids. No N/v. Shortness of breath. Not using IS well. HGB stable. Chest x ray- Developing bilateral edema and/or pneumonitis with probable associated pleural fluid. This could in part be related to congestive heart failure and clinical correlation would be of use. Objective Exam General Appearance: No Apparent Distress, WD/WN, Chronically ill HEENT: PERRL/EOMI, Normal ENT Inspection Neck: Normal Inspection, Non Tender, Supple Respiratory: Chest Non Tender, No Accessory Muscle Use, No Respiratory Distress (but minimally labored), Decreased Breath Sounds (Bilat bases) Cardiovascular: Tachycardia, Other (mild edema to BLE) Gastrointestinal: normal bowel sounds; No distended, No guarding, No rebound; tenderness (incisional minimal, clean dry intact no signs of infection) Extremity: Non Tender, Pedal Edema Neurologic/Psychiatric: Alert, Oriented x3, No Motor/Sensory Deficits, Normal Mood/Affect Skin: Normal Color, Warm/Dry Lymphatic: No Adenopathy Assessment/Plan Assessment/Plan Assessment/Plan S/P SBR and RIH repair 03/15 Hypokalemia - K 2.8 Afib with RVR Dyspnea Leukocytosis - WBC 13.6; increased from yesterday(13.4) Lower extremity edema pneumonitis POD#5 s/p small bowel resection, R inguinal hernia repair Tolerating clears and has bowel function advance diet slowly Zosyn continued Anticoagulation due to Afib rvr IS encouraged, Ambulate MAT protocol PT/OT Consult Dr. Marcelino and notified Supervisory-Addendum Brief Verification & Attestation Participated in pt care: history, MDM, physical Personally performed: exam, history, MDM, supervision of care Care discussed with: Medical Student Procedures: n/a Results interpretation: Verified all documentation Verification and Attestation of Medical Student E/M Service A medical student performed and documented this service in my presence. I reviewed and verified all information documented by the medical student and made modifications to such information, when appropriate. I personally performed the physical exam and medical decision making. Kvng Anguiano, Mar 20, 2020,13:59 KLEVER MCCONNELL MED STUDENT Mar 20, 2020 07:30 KVNG ANGUIANO DO Mar 21, 2020 13:56
--- NOTE | 2020-03-20 07:36 | NUR ---
PAGED DR HUYNH. INCREASE HEART RATE
--- NOTE | 2020-03-20 07:38 | NUR ---
NEW ORDERS FROM DR HUYNH. OKAY TO GIVE 8 BAGS KCL. ADD 2 BAGS MG, CHANGE CARDIZEM FORM 180 MG TO 360 MG. HE DOES NOT WANT AN EKG DONE AT THIS TIME. PATIENT WAS SITTING ON BSC. VITALS TAKEN. PATIENT REPORTS THAT SHE FEEL OKAY. BP 129/57. HR 183.
[2020-03-20] MEDS ORDERED: NS IV 1000 ML 1,000 ML IV ONE (07:45)
--- NOTE | 2020-03-20 07:58 | Diagnostic Imaging Report ---
INDICATION: Wheezing AP view of the chest is obtained. Since 03/17/2020, there has been an increase in airspace disease in the perihilar regions of both lungs. There is also increasing basilar opacification and blunting of the costophrenic sulci. No pneumothorax is seen. IMPRESSION: Developing bilateral edema and/or pneumonitis with probable associated pleural fluid. This could in part be related to congestive heart failure and clinical correlation would be of use. Dictated by: Dictated on workstation # [id number]
[2020-03-20] MEDS: MAGNESIUM 1 GM/100 ML IVPB 100 ML IV SCH ×2 (08:11→09:12)
[2020-03-20] MEDS: FAMOTIDINE 20MG/2ML IV (PEPCID) IVP SCH ×2 (08:12→21:48)
[2020-03-20] MEDS: POTASSIUM CL 10MEQ/50ML IVPB 50 ML IV SCH ×11 (08:12→22:59)
[2020-03-20] MEDS: APIXABAN 5 MG (ELIQUIS) TABLET PO SCH ×2 (08:16→21:48)
--- NOTE | 2020-03-20 09:31 | Progress Note - Cardiology ---
Cardiology SOAP Progress Note Subjective: Sitting up in bed Dyspneic with conversation No c/o CP or palpitations No c/o abd pain Objective: I&O/Vital Signs 03/24/20 03/25/20 03/25/20 03/25/20 23:57 01:00 03:06 05:54 Temp 37.0 Pulse 88 83 82 86 Resp 19 B/P (MAP) 128/65 (86) 121/62 (81) 135/67 (89) Pulse Ox 92 O2 Delivery Room Air 03/25/20 03/25/20 03/25/20 06:49 07:42 08:00 Temp 36.0 Pulse 94 88 Resp 18 B/P (MAP) 141/73 (95) Pulse Ox 92 93 O2 Delivery Room Air Room Air 03/25/20 00:00 Intake Total 1070 ml Balance 1070 ml Constitutional: AAO x 3, well-developed, well-nourished Respiratory: No accessory muscle use; other (diminished bases bilat; dyspneic with conversation) Cardiovascular: regular rate-rhythm, S1 and S2, systolic murmur (soft GREGORIO at card base) Gastrointestional: No tender; soft, other (post op abdomen) Extremities: No clubbing, No cyanosis, No significant edema Neurologic/Psychiatric: oriented x 3, other (moves all limbs equally) Skin: No rash on exposed areas, No ulcerations on exposed areas Results/Procedures: Labs Laboratory Tests 03/25/20 06:11: White Blood Count 10.4, Red Blood Count 3.30L, Hemoglobin 9.6L, Hematocrit 32L, Mean Corpuscular Volume 96, Mean Corpuscular Hemoglobin 29, Mean Corpuscular Hemoglobin Concent 31L, Red Cell Distribution Width 14.1, Platelet Count 546H, Mean Platelet Volume 8.9L, Immature Granulocyte % (Auto) 2, Neutrophils (%) (Auto) 75, Lymphocytes (%) (Auto) 12, Monocytes (%) (Auto) 8, Eosinophils (%) (Auto) 3, Basophils (%) (Auto) 0, Neutrophils # (Auto) 7.9H, Lymphocytes # (Auto) 1.2, Monocytes # (Auto) 0.9, Eosinophils # (Auto) 0.3, Basophils # (Auto) 0.0, Immature Granulocyte # (Auto) 0.2H, Sodium Level 140, Potassium Level 3.8, Chloride Level 110H, Carbon Dioxide Level 21, Anion Gap 9, Blood Urea Nitrogen 10, Creatinine 0.63, Estimat Glomerular Filtration Rate > 60, BUN/Creatinine Ratio 16, Glucose Level 106H, Calcium Level 7.9L, Corrected Calcium 9.0, Total Bilirubin 0.4, Aspartate Amino Transf (AST/SGOT) 39H, Alanine Aminotransferase (ALT/SGPT) 43, Alkaline Phosphatase 64, Total Protein 5.2L, Albumin 2.6L Microbiology 03/21/20 Blood Culture - Preliminary, Resulted No growth 03/17/20 MRSA Screen - Final, Complete MRSA not isolated Procedures NAME: LOPEZ SOLANO [facility] REC#: [id number] PT STATUS: ADM IN : 1940 PHYSICIAN: KEYA VELA DO ADMIT DATE: 03/17/20 Draft Date of Exam:03/20/20 CHEST 1 VIEW, AP/PA ONLY INDICATION: Wheezing AP view of the chest is obtained. Since 03/17/2020, there has been an increase in airspace disease in the perihilar regions of both lungs. There is also increasing basilar opacification and blunting of the costophrenic sulci. No pneumothorax is seen. IMPRESSION: Developing bilateral edema and/or pneumonitis with probable associated pleural fluid. This could in part be related to congestive heart failure and clinical correlation would be of use. Dictated on workstation # [id number] Dict: 03/20/20 0736 Trans: 03/20/20 0758 PAULINO [id number] Interpreted by: JOSEPH GUSMAN MD Electronically signed by: A/P: Assessment: SOB - possible pneumonia - management per medical services PAF with RVR first diagnosed on 03/17/20. Recurrent PAF w/ RVR on 03/18/20 in the setting of electrolyte abnormalities Echo on 03/17/20: LVEF 60-65%, PASP 25-30 mmHg S/p bowel resection and R inguinal hernia repair H/o hypertension Plan: * Change IV BB to oral * Replenish lytes * Continue Apixaban for stroke prophylaxis * Monitor labs * Increasing dyspnea, prob developing pneumonia - management per medical services LAURY STEPHENSON Mar 20, 2020 09:31
[2020-03-20] MEDS ORDERED: DIGOXIN 0.25 MG/ML (LANOXIN) 2 ML AMP IV ONE (11:30)
--- NOTE | 2020-03-20 11:53 | NUR ---
CM/SS: Visited with pt as to her current status and some of her recent changes with her health status and condition. Plan: Undetermined at this time. Pt is from home where she lives with . Summary: Pt is somewhat tearful today as she talks about her thinking she was feeling better and now she reports feeling as if she is worst. Pt is on high flow oxygen and reports some increased medications. Pt reports some frustration with being able to do the incentive spirometer, and trying the best that she could. Pt is encouraged to not be harder than herself than she needs to be, and that as she feels like it to do it, reminding pt that it is to help keep her lungs open and encouraged deep breathing. Pt verbalizes understanding. Pt reports some confusion last night and she is wondering if it was medication related. Pt struggles some with no visitors and not having much energy in talking due to being short of breath. Pt does have her cell phone and is able to talk with . Pt is encouraged to do the best that she can with the breathing and work on feeling better. Encouraged to limit her time on the telephone. Pt verbalizes understanding. Pt does have a preet and is encouraged to know that God can give her strength to help her through this difficult time. Pt thanks this worker for stopping by and seeing her. This worker will follow up.
[2020-03-20] MEDS ORDERED: FUROSEMIDE 40 MG/4 ML INJ (LASIX) IVP NR (13:45)
--- NOTE | 2020-03-20 14:11 | Pulmonary Consultation ---
History of Present Illness History of Present Illness Date Seen by Provider: Mar 20, 2020 Time Seen by Provider: 14:05 Date of Admission Allergies and Home Medications Allergies Coded Allergies: No Known Drug Allergies (Unverified Allergy, Mild, 03/26/09) Home Medications Cholecalciferol (Vitamin D3) 125 Mcg Capsule, 125 MCG PO DAILY, (Reported) Hydrochlorothiazide 25 Mg Tablet, 25 MG PO DAILY, (Reported) Ibuprofen 200 Mg Tablet, 400-600 MG PO Q6H PRN for PAIN-MILD (1-4), (Reported) Lovastatin 10 Mg Tablet, 10 MG PO HS, (Reported) LAST FILLED 11-28-2019 #30/30 DAY SUPPLY Past Dymsrik-Nkcnin-Tlpnnu Hx Past Med/Social Hx: Reviewed Nursing Past Med/Soc Hx, Reviewed and Corrections made Patient Social History Alcohol Use: Occasionally Uses Smoking Status: Never a Smoker Immunizations Up To Date Date of Pneumonia Vaccine: Dec 29, 2018 Date of Influenza Vaccine: Dec 21, 2019 Past Medical History High Cholesterol, Hypertension Reproductive Disorders: No Review of Systems Time Seen by Provider: 14:05 Sepsis Event Evaluation Height, Weight, BMI Height: '" Weight: lbs. oz. kg; 25.58 BMI Method: Exam Exam Vital Signs Date Time Temp Pulse Resp B/P (MAP) Pulse Ox O2 Delivery O2 Flow Rate FiO2 03/20/20 11:21 37.0 139 22 126/74 (91) 92 High Flow N/C 8.00 03/20/20 10:31 94 High Flow N/C 6.00 03/20/20 08:01 37.4 183 20 129/57 (81) 93 High Flow N/C 8.00 03/20/20 08:00 High Flow N/C 8.00 03/20/20 06:42 115 03/20/20 06:26 94 High Flow N/C 8.00 03/20/20 03:07 37.0 104 22 127/68 (87) 93 High Flow N/C 12.00 03/20/20 02:54 87 High Flow N/C 8.00 03/20/20 02:24 37.5 82 91 03/20/20 02:09 84 High Flow N/C 8.00 03/20/20 01:00 72 03/20/20 00:11 37.5 82 18 129/60 (83) 91 High Flow N/C 8.00 03/19/20 21:31 87 High Flow N/C 7.00 03/19/20 19:55 High Flow N/C 6.00 03/19/20 19:16 36.5 80 16 125/67 (86) 90 High Flow N/C 7.50 03/19/20 19:00 80 03/19/20 16:06 35.9 93 20 127/60 (82) 92 High Flow N/C 7.50 03/19/20 15:17 90 High Flow N/C 7.00 I & O 03/20/20 07:00 Intake Total 3990 ml Output Total 1250 ml Balance 2740 ml Height & Weight Height: '" Weight: lbs. oz. kg; 25.58 BMI Method: General Appearance: No Apparent Distress, WD/WN, Chronically ill HEENT: PERRL/EOMI, Normal ENT Inspection Neck: Full Range of Motion, Normal Inspection, Non Tender, Supple Respiratory: Chest Non Tender, Lungs Clear, No Accessory Muscle Use, No Respiratory Distress, Decreased Breath Sounds (Bilat bases) Cardiovascular: No Gallop, No JVD, No Murmur, Normal Peripheral Pulses, Tachycardia, Other (mild edema to BLE) Gastrointestinal: normal bowel sounds, distended (minimal); No guarding, No rebound; tenderness (incisional minimal, clean dry intact) Extremity: Normal Inspection, Non Tender Neurologic/Psychiatric: Alert, Oriented x3, No Motor/Sensory Deficits, Normal Mood/Affect Skin: Normal Color, Warm/Dry, Other (Lap sites to abd CDI, secured with candis) Lymphatic: No Adenopathy Results Lab Laboratory Tests 03/19/20 05:52 03/20/20 06:05 Assessment/Plan Assessment/Plan Hypoxia -Titrate oxygen down as tolerated -Check LA Pulmonary edema r/o PNA - EF 60-65% -Lasix give another 20mg of now -Check BNP, PCT -Continue Zosyn Hypokalemia, hypomag -Replace -Check Phosphate Afib rvr -Cardiology following -Eliquis SBO s/p recent resection at [facility] per Dr. Anguiano Post op Ileus EVERARDO BRIONES DO Mar 20, 2020 14:10
--- NOTE | 2020-03-20 14:31 | Physical Therapy Daily Note ---
PT Daily Note-Current Subjective Pt laying Supine in bed upon arrival. Pt agrees PT. OT is in room. Pain Location: No Pain Reported Mental Status Patient Orientation: Person, Place, Situation Attachments: Oxygen, IV Transfers SCALE: Activities may be completed with or without assistive devices. 0-Gxzwsybhcp-hdwihzi completes the activity by him/herself with no assistance from a helper. 5-Set-up or Clean-up Assistance-helper sets up or cleans up; patient completes activity. [place] assists only prior to or following the activity. 4-Supervision or Touching Assistance-helper provides verbal cues and/or touching/steadying and/or contact guard assistance as patient completes activity. Assistance may be provided throughout the activity or intermittently. 3-Partial/Moderate Assistance-helper does LESS THAN HALF the effort. [place] lift s, holds or supports trunk or limbs, but provides less than half the effort. 2-Substantial/Maximal Assistance-helper does MORE THAN HALF the effort. [place] lifts or holds trunk or limbs and provides more than half the effort. 5-Wgbmuglul-fqizqs does ALL the effort. Patient does none of the effort to complete the activity. Or, the assistance of 2 or more helpers is required for the patient to complete the activity. If activity was not attempted, code reason: 7-Patient Refused. 9-Not Applicable-not attempted and the patient did not perform the activity before the current illness, exacerbation or injury. 10-Not Attempted due to Environmental Limitations-(lack of equipment, weather restraints, etc.). 88-Not Attempted due to Medical Conditions or Safety Concerns. Sit to Lying (QC): 5 Lying to Sitting/Side of Bed(Q: 5 Sit to Stand (QC): 5 Weight Bearing Full Weight Bearing Full Weight Bearing Gait Training Does the Patient Walk?: Yes Distance: 15' x4 Walk 10 feet (QC): 4 Walk 50 ft with 2 Turns(QC): 4 Gait Assistive Device: FWW Treatments Pt transfers to EOB, short RB then stands and is assisted while ambulating. PT asked to sit on EOB but TF to recliner instead for safety. Aide is present at this point and all needs are met. PT ambulates pt while OT manipulates O2 and IV pole. Assessment Current Status: Good Progress Pt stephen. tx well. 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 Detention Goals PT Detention Goals Time Frame: Mar 23, 2020 Roll Left & Right (QC): 6 Sit to Lying (QC): 6 Lying-Sitting on Side/Bed(QC): 6 Sit to Stand (QC): 6 Chair/Chz-ph-Alxho Xfer(QC): 6 Toilet Transfer (QC): 6 Does the Patient Walk: Yes Walk 10 feet (QC): 6 Walk 50ft with 2 Turns (QC): 6 Walk 150 ft (QC): 6 PT Plan Problem List Problem List: Activity Tolerance, Gait Treatment/Plan Treatment Plan: Continue Plan of Care Treatment Plan: Bed Mobility, Education, Functional Activity Ben, Functional Strength, Gait, Safety, Therapeutic Exercise, Transfers Treatment Duration: Mar 23, 2020 Frequency: 6 times per week Estimated Hrs Per Day: .25 hour per day Patient and/or Family Agrees t: Yes Safety Risks/Education Patient Education: Correct Positioning, Safety Issues Teaching Recipient: Patient Teaching Methods: Discussion Response to Teaching: Verbalize Understanding Time/GCodes Time In: 1340 Time Out: 1405 Total Billed Treatment Time: 25 Total Billed Treatment 1, FA (10m) & GT (15m) KIRSTIN UNDERWOOD ASSOCIATE SPA DIRECTOR Mar 20, 2020 14:30
--- NOTE | 2020-03-20 14:36 | Occupational Ther Daily Note ---
OT Current Status-Daily Note Subjective Pt alert, lying in bed. Pt agrees to therapy. No c/o pain at this time. Mental Status/Objective Patient Orientation: Person, Place, Time, Situation Attachments: IV, Oxygen ADL-Treatment Therapy Code Descriptions/Definitions Functional [place] Measure: 0=Not Assessed/NA 4=Minimal Assistance 1=Total Assistance 5=Supervision or Setup 2=Maximal Assistance 6=Modified [place] 3=Moderate Assistance 7=Complete IndependenceSCALE: Activities may be completed with or without assistive devices. 4-Qbkxsflseg-tbplrko completes the activity by him/herself with no assistance from a helper. 5-Set-up or Clean-up Assistance-helper sets up or cleans up; patient completes activity. Friedens assists only prior to or following the activity. 4-Supervision or Touching Assistance-helper provides verbal cues and/or touching/steadying and/or contact guard assistance as patient completes activity. Assistance may be provided throughout the activity or intermittently. 3-Partial/Moderate Assistance-helper does LESS THAN HALF the effort. Friedens lifts, holds or supports trunk or limbs, but provides less than half the effort. 2-Substantial/Maximal Assistance-helper does MORE THAN HALF the effort. Friedens lifts or holds trunk or limbs and provides more than half the effort. 8-Mqfvypspx-ofcxop does ALL the effort. Patient does none of the effort to complete the activity. Or, the assistance of 2 or more helpers is required for the patient to complete the activity. If activity was not attempted, code reason: 7-Patient Refused. 9-Not Applicable-not attempted and the patient did not perform the activity before the current illness, exacerbation or injury. 10-Not Attempted due to Environmental Limitations-(lack of equipment, weather restraints, etc.). 88-Not Attempted due to Medical Conditions or Safety Concerns. On/Off Footwear: 3 (Pt unable to doff socks due to abdominal incision. Used sock aide with verbal cues to don socks.) Other Treatment OT assisted pt with manipulating IV and O2 tubing while PT ambulated pt 15' x4. Pt CGA to SBA for ambulating then SBA for bed mobility. After therapy, pt sitting in recliner with call light/phone in reach. Nrsg present in room. All needs met in room. 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 2=Patient will verbalize/demonstrate understanding of assistive devices/modifications for ADL. 3=Patient will improve strength/tolerance for activity to enable patient to perform ADL's. OT Education/Plan Problem List/Assessment Assessment: Decreased Activ Tolerance, Impaired Self-Care Skills Pt would benefit from skilled short term OT in order to increase BUE strength and functional endurance and increase independence with ADLs to maximize LOF for safe return home. Discharge Recommendations Plan/Recommendations: Continue POC Treatment Plan/Plan of Care Patient would benefit from OT for education, treatment and training to promote independence in ADL's, mobility, safety and/or upper extremity function for ADL's. Plan of Care: ADL Retraining, Functional Mobility, UE Funct Exercise/Act Treatment Duration: Mar 25, 2020 Frequency: 5 times per week Estimated Hrs Per Day: .25 hour per day Rehab Potential: Fair Time/GCodes Start Time: 13:40 Stop Time: 14:05 Total Time Billed (hr/min): 25 Billed Treatment Time 1 visit-FA 2 (25 min) MARCELO ANDERSON Mar 20, 2020 14:36
[2020-03-20] MEDS ORDERED: SODIUM PHOSPHATE INJ 30 MM in NS (IVPB) 250 ML INJ ONE (15:00)
--- NOTE | 2020-03-20 18:21 | NUR ---
1456 CRITICAL LOW PHOSPHORUS LAB REPORTED TO DR BRIONES. NEW ORDERS RECEIVED.
[2020-03-20 18:33] LABS: CHLORIDE 104 MMOL/L (98-107); POTASSIUM 3.2 MMOL/L (3.6-5.0); SODIUM 142 MMOL/L (135-145)
[2020-03-20 18:35] LABS: CALCIUM 8.7 MG/DL (8.5-10.1); GLUCOSE 118 MG/DL (70-105)
[2020-03-20 18:36] LABS: CARBON DIOXIDE 27 MMOL/L (21-32)
[2020-03-20 18:39] LABS: CREATININE SERUM 0.62 MG/DL (0.60-1.30); GFR ESTIMATED > 60
[2020-03-20 18:40] LABS: BUN/CREATININE RATIO 16
--- NOTE | 2020-03-20 19:50 | Progress Note - Cardiology ---
Cardiology SOAP Progress Note Subjective: Palpitations last night Gen malaise No cp or syncope Shortness of breath with activity, improving No n/v Objective: I&O/Vital Signs 03/20/20 03/20/20 03/20/20 03/20/20 08:00 08:01 10:31 11:21 Temp 37.4 37.0 Pulse 183 139 Resp 20 22 B/P (MAP) 129/57 (81) 126/74 (91) Pulse Ox 93 94 92 O2 Delivery High Flow N/C High Flow N/C High Flow N/C High Flow N/C O2 Flow Rate 8.00 8.00 6.00 8.00 03/20/20 03/20/20 03/20/20 03/20/20 12:46 14:32 15:36 19:00 Temp 36.4 Pulse 112 102 97 Resp 18 B/P (MAP) 118/57 (77) Pulse Ox 94 92 O2 Delivery High Flow N/C High Flow N/C O2 Flow Rate 3.00 3.00 03/20/20 19:14 Temp 36.3 Pulse 100 Resp 18 B/P (MAP) 133/63 (86) Pulse Ox 92 O2 Delivery High Flow N/C O2 Flow Rate 3.00 03/20/20 00:00 Intake Total 1520 ml Output Total 400 ml Balance 1120 ml Constitutional: AAO x 3, well-developed, well-nourished Respiratory: No accessory muscle use; other (diminished bases bilat; dyspneic with conversation) Cardiovascular: regular rate-rhythm, S1 and S2, systolic murmur (soft GREGORIO at card base) Gastrointestional: No tender; soft, other (post op abdomen) Extremities: swelling (mod, bilat leg edema); No clubbing, No cyanosis Neurologic/Psychiatric: oriented x 3, other (moves all limbs equally) Skin: No rash on exposed areas, No ulcerations on exposed areas Results/Procedures: Labs Laboratory Tests 03/20/20 05:33: Urine Color YELLOW, Urine Clarity CLEAR, Urine pH 5.5, Urine Specific [place] 1.010L, Urine Protein NEGATIVE, Urine Glucose (UA) NEGATIVE, Urine Ketones TRACEH, Urine Nitrite NEGATIVE, Urine Bilirubin NEGATIVE, Urine Urobilinogen 0.2, Urine Leukocyte Esterase NEGATIVE, Urine RBC (Auto) 3+H, Urine RBC 50-100H, Urine WBC NONE, Urine Squamous Epithelial Cells 0-2, Urine Crystals PRESENTH, Urine Calcium Oxalate Crystals RAREH, Urine Bacteria NEGATIVE, Urine Casts NONE, Urine Mucus NEGATIVE, Urine Culture Indicated NO 03/20/20 06:05: White Blood Count 13.6H, Red Blood Count 3.28L, Hemoglobin 9.7L, Hematocrit 30L, Mean Corpuscular Volume 92, Mean Corpuscular Hemoglobin 30, Mean Corpuscular Hemoglobin Concent 32, Red Cell Distribution Width 13.2, Platelet Count 451H, Mean Platelet Volume 9.8, Sodium Level 144, Potassium Level 2.8L, Chloride Level 109H, Carbon Dioxide Level 21, Anion Gap 14, Blood Urea Nitrogen 12, Creatinine 0.63, Estimat Glomerular Filtration Rate > 60, BUN/Creatinine Ratio 19, Glucose Level 145H, Calcium Level 8.7, Magnesium Level 1.7, B-Type Natriuretic Peptide 253.9H, Procalcitonin 3.86H 03/20/20 14:20: Lactic Acid Level 1.29, Phosphorus Level < 0.7*L 03/20/20 18:13: Sodium Level 142, Potassium Level 3.2L, Chloride Level 104, Carbon Dioxide Level 27, Anion Gap 11, Blood Urea Nitrogen 10, Creatinine 0.62, Estimat Glomerular Filtration Rate > 60, BUN/Creatinine Ratio 16, Glucose Level 118H, Calcium Level 8.7, Magnesium Level 2.0 Microbiology 03/17/20 MRSA Screen - Final, Complete MRSA not isolated A/P: Assessment: SOB - possible pneumonia - management per Medical services PAF with RVR first diagnosed on 03/17/20. Recurrent PAF w/ RVR on 03/18/20 in the setting of electrolyte abnormalities Echo on 03/17/20: LVEF 60-65%, PASP 25-30 mmHg S/p bowel resection and R inguinal hernia repair H/o hypertension Plan: * Change IV BB to oral * Replenish lytes * Continue Apixaban for stroke prophylaxis * Monitor labs * Increasing dyspnea, prob developing pneumonia - management per Medical services * Discussed case with SERGEY Conde am, MD FACP FAC CCDS Mar 20, 2020 19:50
[2020-03-21] VITALS (7 sets, daily range): BP systolic 109–132; BP diastolic 53–71
[2020-03-21] MEDS: POTASSIUM CL 10MEQ/50ML IVPB 50 ML IV SCH ×8 (00:06→08:57)
--- NOTE | 2020-03-21 00:33 | NUR ---
PT DAUGHTER CALLED EARLIER IN EVENING TO TELL THIS NURSE PT WAS TALKING ABOUT SEEING A CIRCUS OUTSIDE THE HOSPITAL. WHEN ASSESSING PT, PT ABLE TO APPROPRIATELY ANSWER QUESTIONS REGARDING PERSON/PLACE/TIME/SITUATION, WHEN THIS NURSE ASKED PT ABOUT SEEING THE CIRCUS OUTSIDE, PT STATES "THEY THINK I'M HALLUCINATING, BUT I'M NOT. IT WASN'T REALLY A CIRCUS BUT THERE WAS SO MANY PEOPLE PRACTICING, MOVING WIRES AROUND... THERE WERE DONKEYS IN AND OUT OF THE TRUCKS" PT ALSO STATES SEEING MANY PEOPLE AT THE WINDOWS WHO WERE ALSO WATCHING THE CIRCUS. WHEN RE-ASSESSING PT AT MIDNIGHT, THIS NURSE WALKED INTO PT ROOM AND HEARD PT STATE "THEY'RE COMING, THE NURSE IS BACK." WHEN ASKED WHO SHE WAS TALKING TO, PT STATES SHE TALKS WHEN SHE'S TIRED. DR VELA NOTIFIED OF PT NEW ONSET OF CONFUSION AND HALLUCINATIONS, ORDERED ZYPREXA 2.5MG PO HS TO START FIRST DOSE NOW
[2020-03-21] MEDS ORDERED: OLANZapine 2.5 MG (ZyPREXA) TAB ONE (00:43)
[2020-03-21] MEDS: OLANZapine 2.5 MG (ZyPREXA) TAB PO SCH ×2 (00:50→21:02)
[2020-03-21] MEDS: PIPERACILLIN/TAZOBACTAM (BULK) 4.5 GM in NS (IVPB) 100 ML IV SCH ×3 (00:51→17:17)
[2020-03-21] MEDS: ACETAMINOPHEN 500 MG TAB (TYLENOL) PO PRN (04:41)
[2020-03-21] MEDS: RT-ALBUTEROL/IPRATROPIUM 3 ML (DUONEB) VIAL INH SCH ×6 (04:46→22:25)
--- NOTE | 2020-03-21 05:00 | NUR ---
PT INCREASINGLY SHORT OF BREATH, THIS NURSE ADMINISTERED A BREATHING TREATMENT PER EMAR ORDER. PT HAD NO RELIEF. TIGHT WHEEZES IN ANTERIOR CHEST CAN BE HEARD. PT HYPERVENTILATING. DR VELA NOTIFIED, AND STATES SHE WILL NOTIFY DR BRIONES REGARDING PT'S CONDITION. THIS NURSE RECEIVED CALL FROM CLERK MANAGER TO TRANSFER PT TO [facility].
[2020-03-21] MEDS: morphine INJ 4 MG/ML 1 ML (VIAL/SYRINGE) IVP PRN (05:07)
--- NOTE | 2020-03-21 05:22 | Pulmonary Progress Note ---
Subjective Time Seen by a Provider: 05:19 Subjective/Events-last exam Called to bedside secondary to acute distress and worsening hypoxia. Sepsis Event Evaluation Height, Weight, BMI Height: '" Weight: lbs. oz. kg; 25.58 BMI Method: Focused Exam Lactate Level 03/20/20 14:20: Lactic Acid Level 1.29 Exam Exam Vital Signs Date Time Temp Pulse Resp B/P (MAP) Pulse Ox O2 Delivery O2 Flow Rate FiO2 03/21/20 04:41 38.0 03/21/20 04:34 38.1 83 20 123/65 (84) 94 High Flow N/C 3.50 03/21/20 01:00 82 03/21/20 00:37 37.2 79 20 123/71 (88) 95 High Flow N/C 3.00 03/20/20 20:40 High Flow N/C 3.00 03/20/20 19:14 36.3 100 18 133/63 (86) 92 High Flow N/C 3.00 03/20/20 19:00 97 03/20/20 15:36 36.4 102 18 118/57 (77) 92 High Flow N/C 3.00 03/20/20 14:32 94 High Flow N/C 3.00 03/20/20 12:46 112 03/20/20 11:21 37.0 139 22 126/74 (91) 92 High Flow N/C 8.00 03/20/20 10:31 94 High Flow N/C 6.00 03/20/20 08:01 37.4 183 20 129/57 (81) 93 High Flow N/C 8.00 03/20/20 08:00 High Flow N/C 8.00 03/20/20 06:42 115 03/20/20 06:26 94 High Flow N/C 8.00 I & O 03/21/20 07:00 Intake Total 3850 ml Output Total 1000 ml Balance 2850 ml Height & Weight Height: '" Weight: lbs. oz. kg; 25.58 BMI Method: General Appearance: WD/WN, Anxious, Chronically ill, Moderate Distress HEENT: PERRL/EOMI, Normal ENT Inspection Neck: Full Range of Motion, Normal Inspection, Non Tender, Supple Respiratory: Chest Non Tender, No Accessory Muscle Use, No Respiratory Distress, Decreased Breath Sounds (Bilat bases) Cardiovascular: No Gallop, No JVD, No Murmur, Normal Peripheral Pulses, Tachycardia, Other (mild edema to BLE) Gastrointestinal: normal bowel sounds, distended (minimal); No guarding, No rebound; tenderness (incisional minimal, clean dry intact) Extremity: Normal Inspection, Non Tender, Pedal Edema Neurologic/Psychiatric: Alert, No Motor/Sensory Deficits, Normal Mood/Affect, Disoriented Skin: Normal Color, Warm/Dry, Other (Lap sites to abd CDI, secured with s taples) Lymphatic: No Adenopathy Results Lab Laboratory Tests 03/19/20 05:52 03/20/20 06:05 03/20/20 18:13 Assessment/Plan Assessment/Plan Hypoxia - -Acute worsening this morning along with acute distress. -Titrate oxygen down as tolerated -Repeat LA -Check ABG -Repeat CXR Pulmonary edema r/o PNA - EF 60-65% -Give Lasix 40mg -Continue Zosyn -Albright cultures pending Hypokalemia, hypomag, hypophos -Replace Afib rvr -Cardiology following -Elibettie SBO s/p recent resection at [facility] [place]. Anguiano Post op Ileus EVERARDO BRIONES DO Mar 21, 2020 05:22
[2020-03-21 06:23] LABS: BASOPHILS % (AUTO) 0 % (0-10); EOSINOPHILS % (AUTO) 0 % (0-10); HEMATOCRIT 31 % (35-52); HEMOGLOBIN 9.8 g/dL (11.5-16.0); LYMPHOCYTES # (AUTO) 1.5 10^3/uL (1.0-4.0); LYMPHOCYTES % (AUTO) 12 % (12-44); MEAN CORPUSCULAR HEMOGLOBIN 29 pg (25-34); MEAN CORPUSCULAR HGB CONC 31 g/dL (32-36); MEAN CORPUSCULAR VOLUME 92 fL (80-99); MEAN PLATELET VOLUME 9.1 fL (9.0-12.2); MONOCYTES # (AUTO) 0.9 10^3/uL (0.0-1.0); MONOCYTES % (AUTO) 7 % (0-12); NEUTROPHILS % (AUTO) 78 % (42-75); PLATELET COUNT 479 10^3/uL (130-400); WHITE BLOOD COUNT 12.8 10^3/uL (4.3-11.0)
[2020-03-21] MEDS ORDERED: FUROSEMIDE 40 MG/4 ML INJ (LASIX) IVP ONE (06:38)
[2020-03-21 07:04] LABS: ALANINE AMINOTRANSFERASE 20 U/L (0-55); ALBUMIN 2.9 GM/DL (3.2-4.5); ALKALINE PHOSPHATASE 56 U/L (40-136); BILIRUBIN,TOTAL 0.8 MG/DL (0.1-1.0); BUN/CREATININE RATIO 20; CALCIUM 8.2 MG/DL (8.5-10.1); CARBON DIOXIDE 23 MMOL/L (21-32); CHLORIDE 108 MMOL/L (98-107); CREATININE SERUM 0.59 MG/DL (0.60-1.30); GFR ESTIMATED > 60; GLUCOSE 113 MG/DL (70-105); MAGNESIUM 1.9 MG/DL (1.6-2.4); PHOSPHORUS 1.7 MG/DL (2.3-4.7); POTASSIUM 3.7 MMOL/L (3.6-5.0); SODIUM 142 MMOL/L (135-145); TOTAL PROTEIN 5.8 GM/DL (6.4-8.2)
[2020-03-21 07:17] LABS: BILIRUBIN,URINE NEGATIVE (NEGATIVE); CLARITY,URINE CLEAR; COLOR,URINE YELLOW; GLUCOSE, URINE (UA) NEGATIVE (NEGATIVE); KETONES,URINE 1+ (NEGATIVE); LEUKOCYTE ESTERASE ,URINE NEGATIVE (NEGATIVE); NITRITE,URINE NEGATIVE (NEGATIVE); PROTEIN,URINE TRACE (NEGATIVE)
[2020-03-21] MEDS ORDERED: CATHETER FLUSH 10 ML SYR IV PRN (07:30)
[2020-03-21] MEDS ORDERED: POTASSIUM PHOSPHATE INJ 30 MM in NS (IVPB) 250 ML IV NR (07:30)
[2020-03-21 07:37] LABS: BACTERIA,URINE NEGATIVE /HPF; SQUAMOUS EPITHELIAL CELL,UR 0-2 /HPF
--- NOTE | 2020-03-21 07:52 | Progress Note - Surgery ---
KLEVER MCCONNELL MED STUDENT 03/21/20 0752: Subjective Date Seen by a Provider: Mar 21, 2020 Time Seen by a Provider: 07:20 Subjective/Events-last exam Pt seen and examined. She was sitting up in bed, NAD but with increased respiratory rate. She was transferred to cardiac step down earlier this morning due to increased SOB and respirations. She denies chest pain, N/V. Mild abd incisional pain. BMx3 yesterday that she described as black/tarry. Per nursing, she has been having bouts of confusion eg. thinking she is at her apartment, at a circus etc. Review of Systems General: No Chills HEENT: No Head Aches Pulmonary: Dyspnea Cardiovascular: No: Chest Pain, Palpitations, Lt Headedness Gastrointestinal: Abdominal Pain; No: Nausea, Vomiting Genitourinary: No Dysuria Neurological: No: Numbness Focused Exam Lactate Level 03/20/20 14:20: Lactic Acid Level 1.29 03/21/20 06:50: Lactic Acid Level 0.99 Lactic Acid Level Laboratory Tests Test 03/21/20 06:50 Lactic Acid Level 0.99 MMOL/L (0.50-2.00) Objective Exam Vital Signs Date Time Temp Pulse Resp B/P (MAP) Pulse Ox O2 Delivery O2 Flow Rate FiO2 03/21/20 07:21 37.2 116 30 121/62 (81) 95 Nasal Cannula 4.00 03/21/20 07:10 95 High Flow N/C 4.00 03/21/20 05:46 High Flow N/C 5.00 95 03/21/20 05:45 37.5 98 26 112/66 (81) 95 Nasal Cannula 5.00 03/21/20 04:41 38.0 03/21/20 04:34 38.1 83 20 123/65 (84) 94 High Flow N/C 3.50 03/21/20 01:00 82 03/21/20 00:37 37.2 79 20 123/71 (88) 95 High Flow N/C 3.00 03/20/20 20:40 High Flow N/C 3.00 03/20/20 19:14 36.3 100 18 133/63 (86) 92 High Flow N/C 3.00 03/20/20 19:00 97 03/20/20 15:36 36.4 102 18 118/57 (77) 92 High Flow N/C 3.00 03/20/20 14:32 94 High Flow N/C 3.00 03/20/20 12:46 112 03/20/20 11:21 37.0 139 22 126/74 (91) 92 High Flow N/C 8.00 03/20/20 10:31 94 High Flow N/C 6.00 03/20/20 08:01 37.4 183 20 129/57 (81) 93 High Flow N/C 8.00 03/20/20 08:00 High Flow N/C 8.00 I & O 03/21/20 07:00 Intake Total 3900 ml Output Total 1000 ml Balance 2900 ml Capillary Refill : NONE General Appearance: WD/WN, Anxious, Chronically ill, Mild Distress HEENT: PERRL/EOMI, Normal ENT Inspection Neck: Full Range of Motion, Normal Inspection, Non Tender, Supple Respiratory: Chest Non Tender, Lungs Clear, No Accessory Muscle Use, Decreased Breath Sounds (Bilat bases), Other (increased respiratory rate ) Cardiovascular: No Gallop, No JVD, No Murmur, Normal Peripheral Pulses, Tachycardia, Other (mild edema to BLE) Gastrointestinal: normal bowel sounds; No distended, No guarding, No rebound; tenderness (incisional minimal, clean dry intact) Extremity: Normal Inspection, Normal Range of Motion, Non Tender, Pedal Edema (mild) Neurologic/Psychiatric: Alert, No Motor/Sensory Deficits, Normal Mood/Affect, Disoriented Skin: Normal Color, Warm/Dry, Other (Lap sites to abd CDI, secured with candis, no s/s infection) Lymphatic: No Adenopathy Results Lab Laboratory Tests 03/20/20 14:20: Lactic Acid Level 1.29, Phosphorus Level < 0.7*L 03/20/20 18:13: Sodium Level 142, Potassium Level 3.2L, Chloride Level 104, Carbon Dioxide Level 27, Anion Gap 11, Blood Urea Nitrogen 10, Creatinine 0.62, Estimat Glomerular Filtration Rate > 60, BUN/Creatinine Ratio 16, Glucose Level 118H, Calcium Level 8.7, Magnesium Level 2.0 03/21/20 06:15: Phosphorus Level 1.7L, Sodium Level 142, Potassium Level 3.7, Chloride Level 108H, Carbon Dioxide Level 23, Anion Gap 11, Blood Urea Nitrogen 12, Creatinine 0.59L, Estimat Glomerular Filtration Rate > 60, BUN/Creatinine Ratio 20, Glucose Level 113H, Calcium Level 8.2L, Magnesium Level 1.9, White Blood Count 12.8H, Red Blood Count 3.42L, Hemoglobin 9.8L, Hematocrit 31L, Mean Corpuscular Volume 92, Mean Corpuscular Hemoglobin 29, Mean Corpuscular Hemoglobin Concent 31L, Red Cell Distribution Width 13.2, Platelet Count 479H, Mean Platelet Volume 9.1, Immature Granulocyte % (Auto) 3, Neutrophils (%) (Auto) 78H, Lymphocytes (%) (Auto) 12, Monocytes (%) (Auto) 7, Eosinophils (%) (Auto) 0, Basophils (%) (Auto) 0, Neutrophils # (Auto) 10.0H, Lymphocytes # (Auto) 1.5, Monocytes # (Auto) 0.9, Eosinophils # (Auto) 0.0, Basophils # (Auto) 0.0, Immature Granulocyte # (Auto) 0.3H, Corrected Calcium 9.1, Total Bilirubin 0.8, Aspartate Amino Transf (AST/SGOT) 31, Alanine Aminotransferase (ALT/SGPT) 20, Alkaline Phosphatase 56, Total Protein 5.8L, Albumin 2.9L 03/21/20 06:50: Lactic Acid Level 0.99 03/21/20 07:10: Urine Color YELLOW, Urine Clarity CLEAR, Urine pH 6.0, Urine Specific [place] 1.015L, Urine Protein TRACEH, Urine Glucose (UA) NEGATIVE, Urine Ketones 1+H, Urine Nitrite NEGATIVE, Urine Bilirubin NEGATIVE, Urine Urobilinogen 0.2, Urine Leukocyte Esterase NEGATIVE, Urine RBC (Auto) 3+H, Urine RBC 2-5H, Urine WBC N ONE, Urine Squamous Epithelial Cells 0-2, Urine Crystals NONE, Urine Bacteria NEGATIVE, Urine Casts NONE, Urine Mucus NEGATIVE, Urine Culture Indicated NO Microbiology 03/17/20 MRSA Screen - Final, Complete MRSA not isolated Assessment/Plan Assessment/Plan Assessment/Plan S/P SBR and RIH repair 03/15 Hypokalemia - K 3.7 Respiratory distress - Pulmonology following Afib with RVR Leukocytosis - WBC 12.8; decreased from yesterday(13.6) POD#6 s/p small bowel resection, R inguinal hernia repair Tolerating dysphagia II diet 3x loose bloody BM's yesterday; black/tarry Zosyn continued, additional coverage may be needed Anticoagulation due to Afib rvr IS encouraged, Ambulate MAT protocol Continue to monitor VS/labs, pain, flatus/bowel movement Clinical Quality Measures DVT/VTE Risk/Contraindication: Risk Factor Score Per Nursin RFS Level Per Nursing on Admit: 4+=Very High ANGUIANOKVNG NOVA DO 03/21/20 1407: Subjective Subjective/Events-last exam No abdominal pain. Passing flatus and bm. TOlerating diet. Having increased shortness of breath transferred to cardiac stepdown. Having bouts of slight confusion. WBC down. Electrolyte abnormalities. Denies n/v fever sweats chill chest pain. Hard time using IS. Objective Exam General Appearance: WD/WN, Anxious, Chronically ill HEENT: PERRL/EOMI, Normal ENT Inspection Neck: Full Range of Motion, Non Tender, Supple Respiratory: Chest Non Tender, Lungs Clear, No Accessory Muscle Use Cardiovascular: Irregularly Irregular, Tachycardia, Other (mild edema to BLE) Gastrointestinal: No distended, No guarding, No rebound, No tenderness; other (incisions c/d/i) Extremity: Pedal Edema (mild) Neurologic/Psychiatric: Alert, No Motor/Sensory Deficits, Normal Mood/Affect Skin: Normal Color, Warm/Dry Lymphatic: No Adenopathy Assessment/Plan Assessment/Plan Assessment/Plan S/P SBR and RIH repair 03/15 Hypokalemia - K 3.7 Hypophosphatemia Respiratory distress - Pulmonology following Afib with RVR Leukocytosis - WBC 12.8; decreased from yesterday(13.6) POD#6 s/p small bowel resection, R inguinal hernia repair Tolerating dysphagia II diet 3x loose bloody BM's yesterday; black/tarry Zosyn continued wbc coming down Lasix Electrolyte replacement Cardizem drip, IV BB Anticoagulation due to Afib rvr IS encouraged, Ambulate MAT protocol Supervisory-Addendum Brief Verification & Attestation Participated in pt care: history, MDM, physical Personally performed: exam, history, MDM, supervision of care Care discussed with: Medical Student Procedures: n/a Results interpretation: Verified all documentation Verification and Attestation of Medical Student E/M Service A medical student performed and documented this service in my presence. I reviewed and verified all information documented by the medical student and made modifications to such information, when appropriate. I personally performed the physical exam and medical decision making. Kvng Anguiano, Mar 21, 2020,14:08 KLEVER MCCONNELL MED STUDENT Mar 21, 2020 07:52 KVNG ANGUIANO DO Mar 21, 2020 14:07
[2020-03-21 08:04] LABS: ABG BASE EXCESS 1.9 MMOL/L (-2.5-2.5); ABG OXYGEN SATURATION 97 % (94-100); ABG PCO2 35 MMHG (35-45); ABG PH 7.48 (7.37-7.43); ABG PO2 85 MMHG (79-93); ABG TCO2 26.2 MMOL/L (21.0-31.0)
[2020-03-21 08:06] LABS: ALLENS TEST YES-POS; INSPIRED O2 4L; PATIENT TEMP 37.2; VENTILATOR NO
--- NOTE | 2020-03-21 08:06 | Physical Therapy Progress Note ---
Therapy Progress Note Patient transferred to Cardiac Step Down. PT will require new orders when physician deems it appropriate. SHONDA FARIAS PT Mar 21, 2020 08:06
--- NOTE | 2020-03-21 08:09 | Diagnostic Imaging Report ---
INDICATION: Hypoxia COMPARISON: 03/20/2020 FINDINGS: Single view chest demonstrates cardiac enlargement with persistent but significantly decreased central vascular congestion. There are persistent small bilateral pleural effusions. There is no pneumothorax. Osseous structures stable. IMPRESSION: Improving aeration of both lungs. Dictated by: Dictated on workstation # [id number]
--- NOTE | 2020-03-21 08:16 | Occ Therapy Progress Note ---
Therapy Progress Note Pt. has had change in medical status and has transferred to cardiac step down. Will require new OT orders. [id number] NJ MARTINEZ OT Mar 21, 2020 08:16
[2020-03-21] MEDS: APIXABAN 5 MG (ELIQUIS) TABLET PO SCH ×2 (08:56→21:02)
[2020-03-21] MEDS: FAMOTIDINE 20MG/2ML IV (PEPCID) IVP SCH (08:56)
[2020-03-21] MEDS ORDERED: FUROSEMIDE 40 MG/4 ML INJ (LASIX) IVP SCH (09:00)
--- NOTE | 2020-03-21 10:21 | Progress Note - Hospitalist ---
Subjective HPI/CC On Admission Date Seen by Provider: Mar 21, 2020 Time Seen by Provider: 10:00 CC: AF w/RVR new onset transferred from [facility] for higher level of care to ICU HPI: This is a 80yoWF clinic patient of Dr Burch who was transferred from [facility] to [facility] ICU due to new onset AF w/RVR after an emergent small bowel obstruction s/p surgical resection by Dr Anguiano on 03/15. Patient has now converted to NSR. Dr Palomares consulted and placed her on OAC and PO Cardizem and is now ready for move to 4th floor. CLD initiated. Checked meds and labs and reviewed [facility] records. Subjective/Events-last exam Patient had another episode of respiratory distress at 0500 Dr. Marcelino graciously assessed the patient moved her up to cardiac stepdown unit Patient feels like she is taken a step backwards but I told her to lower her expectation considering she had to have emergent intestinal resection surgery which progressed to atrial fibrillation to volume overload and desaturation and now she is in cardiac stepdown unit Patient will be monitored very closely Velasco cath maintained for diuresis Had some hallucinations last night Replacing potassium and phosphorus and K-Phos Review of Systems General: Fatigue Pulmonary: Dyspnea Neurological: Weakness Focused Exam Lactate Level 03/20/20 14:20: Lactic Acid Level 1.29 03/21/20 06:50: Lactic Acid Level 0.99 Lactic Acid Level Objective Exam Vital Signs Vital Signs Date Time Temp Pulse Resp B/P (MAP) Pulse Ox O2 Delivery O2 Flow Rate FiO2 03/21/20 19:22 36.4 103 20 123/53 (76) 97 Nasal Cannula 4.00 03/21/20 08:00 95 Capillary Refill : NONE General Appearance: No Apparent Distress, WD/WN, Anxious, Chronically ill Respiratory: Chest Non Tender, Lungs Clear, Normal Breath Sounds, No Accessory Muscle Use, No Respiratory Distress Cardiovascular: Regular Rate, Rhythm, No Edema, No Gallop, No JVD, No Murmur, Normal Peripheral Pulses Neurologic/Psychiatric: Alert, Oriented x3, No Motor/Sensory Deficits, Normal Mood/Affect Results/Procedures Lab Laboratory Tests 03/21/20 06:15 03/21/20 16:00 Patient resulted labs reviewed. Assessment/Plan Assessment and Plan Assess & Plan/Chief Complaint Assessment: AF w/RVR new onset requiring transfer from [facility] to [facility] ICU now converted to NSR after Cardizem given at [facility] Recent emergent SBO s/o resection 03/15/[address] Anguiano at [facility] HTN HLP Post op ileus Plan: Pain control OAC Cardizem 03/18/20: Replace potassium Monitor HR AF Pain meds PT OT 03/19/20: Monitor BP and HR DC Catheter when surgery approves NGT DC? 03/20/20: DC NGT HLIVF? O2 IS IV Lasix Consult Dr Marcelino 03/21/20: Moved to [facility] Appreciate Rina Marcelino and Jelani Monitor closely O2 Velasco cath for diuresis Diagnosis/Problems Diagnosis/Problems (1) Atrial fibrillation with rapid ventricular response Clinical Quality Measures DVT/VTE Risk/Contraindication: Risk Factor Score Per Nursin RFS Level Per Nursing on Admit: 4+=Very High KEYA VELA DO Mar 21, 2020 10:21
[2020-03-21] MEDS: ADVAIR HFA 115/21 MCG INHALER 8 GM IH SCH ×2 (10:55→19:06)
[2020-03-21] MEDS ORDERED: meTOprolol 5 MG/5 ML (LOPRESSOR) VIAL ONE (11:21)
[2020-03-21] MEDS ORDERED: meTOprolol 5 MG/5 ML (LOPRESSOR) VIAL IV NR (11:30)
[2020-03-21] MEDS ORDERED: dilTIAZem DRIP PRE-MIX 125 ML IV SCH (11:30)
--- NOTE | 2020-03-21 11:37 | Progress Note - Cardiology ---
Cardiology SOAP Progress Note Subjective: Sitting up in bed Dr. Anguiano at the bedside Called into the room d/t HR sustaining a-fib with RVR 184 bpm, asymptomatic No c/o CP or palpitations Dyspneic with conversation C/O LE swelling Objective: I&O/Vital Signs 03/24/20 03/25/20 03/25/20 03/25/20 23:57 01:00 03:06 05:54 Temp 37.0 Pulse 88 83 82 86 Resp 19 B/P (MAP) 128/65 (86) 121/62 (81) 135/67 (89) Pulse Ox 92 O2 Delivery Room Air 03/25/20 03/25/20 03/25/20 06:49 07:42 08:00 Temp 36.0 Pulse 94 88 Resp 18 B/P (MAP) 141/73 (95) Pulse Ox 92 93 O2 Delivery Room Air Room Air 03/25/20 00:00 Intake Total 1070 ml Balance 1070 ml Constitutional: AAO x 3, well-developed, well-nourished Respiratory: No accessory muscle use; other (diminished bases bilat; dyspneic with conversation) Cardiovascular: irregularly irregular, tachycardia, S1 and S2, systolic murmur (soft GREGORIO at card base) Gastrointestional: No tender; soft, other (post op abdomen) Extremities: No clubbing, No cyanosis; significant edema (2 + bilat LE swelling) Neurologic/Psychiatric: oriented x 3, other (moves all limbs equally) Skin: No rash on exposed areas, No ulcerations on exposed areas Results/Procedures: Labs Laboratory Tests 03/25/20 06:11: White Blood Count 10.4, Red Blood Count 3.30L, Hemoglobin 9.6L, Hematocrit 32L, Mean Corpuscular Volume 96, Mean Corpuscular Hemoglobin 29, Mean Corpuscular Hemoglobin Concent 31L, Red Cell Distribution Width 14.1, Platelet Count 546H, Mean Platelet Volume 8.9L, Immature Granulocyte % (Auto) 2, Neutrophils (%) (Auto) 75, Lymphocytes (%) (Auto) 12, Monocytes (%) (Auto) 8, Eosinophils (%) (Auto) 3, Basophils (%) (Auto) 0, Neutrophils # (Auto) 7.9H, Lymphocytes # (Auto) 1.2, Monocytes # (Auto) 0.9, Eosinophils # (Auto) 0.3, Basophils # (Auto) 0.0, Immature Granulocyte # (Auto) 0.2H, Sodium Level 140, Potassium Level 3.8, Chloride Level 110H, Carbon Dioxide Level 21, Anion Gap 9, Blood Urea Nitrogen 10, Creatinine 0.63, Estimat Glomerular Filtration Rate > 60, BUN/Creatinine Ratio 16, Glucose Level 106H, Calcium Level 7.9L, Corrected Calcium 9.0, Total Bilirubin 0.4, Aspartate Amino Transf (AST/SGOT) 39H, Alanine Aminotransferase (ALT/SGPT) 43, Alkaline Phosphatase 64, Total Protein 5.2L, Albumin 2.6L Microbiology 03/21/20 Blood Culture - Preliminary, Resulted No growth 03/17/20 MRSA Screen - Final, Complete MRSA not isolated Procedures NAME: LOPEZ SOLANO [facility] REC#: [id number] PT STATUS: ADM IN : 1940 PHYSICIAN: EVERARDO BRIONES DO ADMIT DATE: 03/17/20/[facility] Signed Date of Exam:03/21/20 CHEST 1 VIEW, AP/PA ONLY INDICATION: Hypoxia COMPARISON: 03/20/2020 FINDINGS: Single view chest demonstrates cardiac enlargement with persistent but significantly decreased central vascular congestion. There are persistent small bilateral pleural effusions. There is no pneumothorax. Osseous structures stable. IMPRESSION: Improving aeration of both lungs. Dictated by: Dictated on workstation # [id number] Dict: 03/21/20 0711 Trans: 03/21/20 1027 [facility] [id number] Interpreted by: JONATHAN MERCADO Electronically signed by: JONATHAN MERCADO 03/21/20 1027 A/P: Assessment: SOB - possible pneumonia - management per Medical services PAF with RVR first diagnosed on 03/17/20. Recurrent PAF w/ RVR on 03/18/20 in the setting of electrolyte abnormalities. Recurrent episode of a-fib RVR, asymptomatic Echo on 03/17/20: LVEF 60-65%, PASP 25-30 mmHg S/p bowel resection and R inguinal hernia repair H/o hypertension Plan: * Back in A-fib with RVR (electrolytes WNL)- start Cardizem gtt * Change to IV BB * Replenish lytes * Continue Apixaban for stroke prophylaxis * Monitor labs * Leukocytosis - improving - management per medical/surgical services * Increasing LE swelling - give IV Cornellix LAURY STEPHENSON Mar 21, 2020 11:37
[2020-03-21] MEDS: dilTIAZem DRIP PRE-MIX 125 ML IV SCH (11:42)
[2020-03-21] MEDS ORDERED: meTOprolol 5 MG/5 ML (LOPRESSOR) VIAL IV SCH (12:00)
[2020-03-21] MEDS: CATHETER FLUSH 10 ML SYR IV SCH ×2 (14:02→22:31)
--- NOTE | 2020-03-21 15:16 | NUR ---
CM/SS: Visited with pt as to her current status and called to talk with spouse and introduce this worker as well as reassurance to pt in being able to talk with spouse due to her confusion. Plan: Undetermined at this time - pt is from home where she lives with spouse Davi. Summary: Pt continues to have some confusion. Pt is talking about the cafeteria as well as children running about and other people walking. Pt talks about the bathroom and now she knows where it is as she was told by the nurse. This worker tries remind pt about where she is and her surroundings. Pt reports not talking to her today. Telephone call to Davi - spouse - [phone] - this worker introduces self to spouse. He is given an update on pt's current status and her confusion. He verbalizes understanding as to pt confusion and status. Pt begins to tell spouse a story about children and the cafeteria etc. Pt is reminded where she is and the surroundings in her room. Pt verbalizes understanding as to where she is and that she does still have some confusion. Pt can at times identify her having confusion. Spouse talks with pt and she seems to feel better and reassured about things. Talk with spouse as to the no visitor policy and that can be really hard on pt's. Spouse reports he has been texting pt instead of calling. Spouse thanks this worker for calling and this worker will follow up with him once more is known. Pt is reassured and reminded how to reach the nurse by pushing the button. This worker points out what button to push. Pt verbalizes understanding. Follow up with FLORES Simental as per the status of pt and the phone call with spouse.
[2020-03-21] MEDS: meTOprolol 5 MG/5 ML (LOPRESSOR) VIAL IV SCH ×3 (15:20→21:02)
--- NOTE | 2020-03-21 15:37 | NUR ---
Spoke to Dr. Marcelino regarding the earlier critical Phosphorus levels, questioning need for possibly Iron as it is also low. He was not interested in iron at this time and asked for me to order labs BMP, Mg and Phosphorus. She did get K phos earlier and are rechecking the levels
[2020-03-21] MEDS: ALPRAZolam 0.25 MG (XANAX) TAB PO PRN (16:20)
[2020-03-21 16:22] LABS: CHLORIDE 100 MMOL/L (98-107); POTASSIUM 3.8 MMOL/L (3.6-5.0); SODIUM 140 MMOL/L (135-145)
[2020-03-21 16:23] LABS: CALCIUM 8.4 MG/DL (8.5-10.1); GLUCOSE 141 MG/DL (70-105)
[2020-03-21 16:25] LABS: CARBON DIOXIDE 26 MMOL/L (21-32)
[2020-03-21 16:27] LABS: CREATININE SERUM 0.66 MG/DL (0.60-1.30); GFR ESTIMATED > 60; PHOSPHORUS 3.6 MG/DL (2.3-4.7)
[2020-03-21 16:28] LABS: BUN/CREATININE RATIO 15
[2020-03-21 16:30] LABS: MAGNESIUM 1.5 MG/DL (1.6-2.4)
--- NOTE | 2020-03-21 18:46 | Progress Note - Cardiology ---
Cardiology SOAP Progress Note Subjective: Gen malaise and weakness Shortness of breath with mild exertion No cp or palp or syncope No n/v Objective: I&O/Vital Signs 03/21/20 03/21/20 03/21/20 03/21/20 07:00 07:10 07:21 08:00 Temp 37.2 Pulse 90 116 Resp 30 B/P (MAP) 121/62 (81) Pulse Ox 95 95 O2 Delivery High Flow N/C Nasal Cannula High Flow N/C O2 Flow Rate 4.00 4.00 4.00 FiO2 95 03/21/20 03/21/20 03/21/20 03/21/20 10:58 11:22 12:36 15:10 Temp 37.2 Pulse 134 90 Resp 20 B/P (MAP) 132/58 (82) Pulse Ox 97 92 96 O2 Delivery High Flow N/C Nasal Cannula High Flow N/C O2 Flow Rate 4.00 4.00 4.00 03/21/20 15:42 Temp 36.7 Pulse 115 Resp 21 B/P (MAP) 109/69 (82) Pulse Ox 96 O2 Delivery Nasal Cannula O2 Flow Rate 4.00 03/21/20 00:00 Intake Total 2300 ml Output Total 1000 ml Balance 1300 ml Constitutional: AAO x 3, well-developed, well-nourished Respiratory: No accessory muscle use; other (diminished bases bilat; dyspneic with conversation) Cardiovascular: irregularly irregular, tachycardia, S1 and S2, systolic murmur (soft GREGORIO at card base) Gastrointestional: No tender; soft, other (post op abdomen) Extremities: No clubbing, No cyanosis; significant edema (2 + bilat LE s welling) Neurologic/Psychiatric: oriented x 3, other (moves all limbs equally) Skin: No rash on exposed areas, No ulcerations on exposed areas Results/Procedures: Labs Laboratory Tests 03/21/20 06:15: White Blood Count 12.8H, Red Blood Count 3.42L, Hemoglobin 9.8L, Hematocrit 31L, Mean Corpuscular Volume 92, Mean Corpuscular Hemoglobin 29, Mean Corpuscular Hemoglobin Concent 31L, Red Cell Distribution Width 13.2, Platelet Count 479H, Mean Platelet Volume 9.1, Immature Granulocyte % (Auto) 3, Neutrophils (%) (Auto) 78H, Lymphocytes (%) (Auto) 12, Monocytes (%) (Auto) 7, Eosinophils (%) (Auto) 0, Basophils (%) (Auto) 0, Neutrophils # (Auto) 10.0H, Lymphocytes # (Auto) 1.5, Monocytes # (Auto) 0.9, Eosinophils # (Auto) 0.0, Basophils # (Auto) 0.0, Immature Granulocyte # (Auto) 0.3H, Sodium Level 142, Potassium Level 3.7, Chloride Level 108H, Carbon Dioxide Level 23, Anion Gap 11, Blood Urea Nitrogen 12, Creatinine 0.59L, Estimat Glomerular Filtration Rate > 60, BUN/Creatinine Ratio 20, Glucose Level 113H, Calcium Level 8.2L, Corrected Calcium 9.1, Phosphorus Level 1.7L, Magnesium Level 1.9, Total Bilirubin 0.8, Aspartate Amino Transf (AST/SGOT) 31, Alanine Aminotransferase (ALT/SGPT) 20, Alkaline Phosphatase 56, Total Protein 5.8L, Albumin 2.9L 03/21/20 06:50: Lactic Acid Level 0.99 03/21/20 07:10: Urine Color YELLOW, Urine Clarity CLEAR, Urine pH 6.0, Urine Specific [place] 1.015L, Urine Protein TRACEH, Urine Glucose (UA) NEGATIVE, Urine Ketones 1+H, Urine Nitrite NEGATIVE, Urine Bilirubin NEGATIVE, Urine Urobilinogen 0.2, Urine Leukocyte Esterase NEGATIVE, Urine RBC (Auto) 3+H, Urine RBC 2-5H, Urine WBC NONE, Urine Squamous Epithelial Cells 0-2, Urine Crystals NONE, Urine Bacteria NEGATIVE, Urine Casts NONE, Urine Mucus NEGATIVE, Urine Culture Indicated NO 03/21/20 08:00: Blood Gas Puncture Site R RAD, Blood Gas Patient Temperature 37.2, Arterial Blood pH 7.48H, Arterial Blood Partial Pressure CO2 35, Arterial Blood Partial Pressure O2 85, Arterial Blood HCO3 25, Arterial Blood Total CO2 26.2, Arterial Blood Oxygen Saturation 97, Arterial Blood Base Excess 1.9, Natanael Test YES-POS, Blood Gas Ventilator Setting NO, Blood Gas Inspired Oxygen 4L 03/21/20 16:00: Sodium Level 140, Potassium Level 3.8, Chloride Level 100, Carbon Dioxide Level 26, Anion Gap 14, Blood Urea Nitrogen 10, Creatinine 0.66, Estimat Glomerular Filtration Rate > 60, BUN/Creatinine Ratio 15, Glucose Level 141H, Calcium Level 8.4L, Phosphorus Level 3.6, Magnesium Level 1.5L Microbiology 03/17/20 MRSA Screen - Final, Complete MRSA not isolated Laboratory Tests 03/20/20 06:05 03/20/20 18:13 03/21/20 06:15 03/21/20 16:00 A/P: Assessment: SOB - possible pneumonia - management per Medical services PAF with RVR first diagnosed on 03/17/20. Multiple episodes of recurrent PAF with RVR Echo on 03/17/20: LVEF 60-65%, PASP 25-30 mmHg S/p bowel resection and R inguinal hernia repair H/o hypertension Plan: * Back in A-fib with RVR (electrolytes WNL)- start Cardizem gtt * Change to IV BB * Replenish lytes * Continue Apixaban for stroke prophylaxis * Monitor labs * Leukocytosis - improving - management per medical/surgical services * Increasing LE swelling - give IV SERGEY Lyons MD FACP FAC CCDS Mar 21, 2020 18:46
[2020-03-21] MEDS: FAMOTIDINE 20 MG (PEPCID) TABLET PO SCH (21:02)
[2020-03-22] VITALS: BP 124/59
[2020-03-22] MEDS: meTOprolol 5 MG/5 ML (LOPRESSOR) VIAL IV SCH ×8 (00:26→20:36)
[2020-03-22] MEDS: PIPERACILLIN/TAZOBACTAM (BULK) 4.5 GM in NS (IVPB) 100 ML IV SCH ×3 (00:26→17:30)
[2020-03-22] MEDS: RT-ALBUTEROL/IPRATROPIUM 3 ML (DUONEB) VIAL INH SCH ×4 (02:22→22:37)
[2020-03-22 03:34] LABS: BASOPHILS % (AUTO) 0 % (0-10); EOSINOPHILS # (AUTO) 0.1 10^3/uL (0.0-0.3); EOSINOPHILS % (AUTO) 1 % (0-10); HEMATOCRIT 32 % (35-52); HEMOGLOBIN 10.1 g/dL (11.5-16.0); LYMPHOCYTES # (AUTO) 1.4 10^3/uL (1.0-4.0); LYMPHOCYTES % (AUTO) 12 % (12-44); MEAN CORPUSCULAR HEMOGLOBIN 29 pg (25-34); MEAN CORPUSCULAR HGB CONC 32 g/dL (32-36); MEAN CORPUSCULAR VOLUME 92 fL (80-99); MEAN PLATELET VOLUME 9.3 fL (9.0-12.2); MONOCYTES # (AUTO) 0.8 10^3/uL (0.0-1.0); MONOCYTES % (AUTO) 7 % (0-12); NEUTROPHILS # (AUTO) 9.3 10^3/uL (1.8-7.8); NEUTROPHILS % (AUTO) 77 % (42-75); PLATELET COUNT 487 10^3/uL (130-400)
[2020-03-22 03:51] LABS: ALBUMIN 2.7 GM/DL (3.2-4.5)
[2020-03-22 03:52] LABS: CHLORIDE 102 MMOL/L (98-107); POTASSIUM 3.4 MMOL/L (3.6-5.0); SODIUM 138 MMOL/L (135-145)
[2020-03-22 03:54] LABS: GLUCOSE 92 MG/DL (70-105); TOTAL PROTEIN 5.4 GM/DL (6.4-8.2)
[2020-03-22 03:55] LABS: CARBON DIOXIDE 25 MMOL/L (21-32)
[2020-03-22 03:56] LABS: BILIRUBIN,TOTAL 0.6 MG/DL (0.1-1.0)
[2020-03-22 03:57] LABS: ALKALINE PHOSPHATASE 55 U/L (40-136); PHOSPHORUS 2.8 MG/DL (2.3-4.7)
[2020-03-22 03:58] LABS: CREATININE SERUM 0.55 MG/DL (0.60-1.30); GFR ESTIMATED > 60
[2020-03-22 03:59] LABS: BUN/CREATININE RATIO 18
[2020-03-22 04:00] VITALS: BP 96/71
[2020-03-22 04:00] LABS: MAGNESIUM 1.6 MG/DL (1.6-2.4)
[2020-03-22 04:01] LABS: ALANINE AMINOTRANSFERASE 23 U/L (0-55)
[2020-03-22] MEDS ORDERED: POTASSIUM CL 10MEQ/50ML IVPB 300 ML IV ONE (04:45)
[2020-03-22] MEDS ORDERED: MAGNESIUM 1 GM/100 ML IVPB 200 ML IV ONE (04:45)
--- NOTE | 2020-03-22 04:46 | Pulmonary Progress Note ---
Subjective Time Seen by a Provider: 04:43 Subjective/Events-last exam No complications noted. Sepsis Event Evaluation Height, Weight, BMI Height: '" Weight: lbs. oz. kg; 25.58 BMI Method: Focused Exam Lactate Level 03/20/20 14:20: Lactic Acid Level 1.29 03/21/20 06:50: Lactic Acid Level 0.99 Exam Exam Vital Signs Date Time Temp Pulse Resp B/P (MAP) Pulse Ox O2 Delivery O2 Flow Rate FiO2 03/22/20 02:22 96 High Flow N/C 3.00 03/22/20 01:00 93 03/22/20 00:00 36.2 113 30 124/59 (80) 90 Nasal Cannula 4.00 03/21/20 22:26 96 High Flow N/C 3.00 03/21/20 20:00 High Flow N/C 4.00 95 03/21/20 19:22 36.4 103 20 123/53 (76) 97 Nasal Cannula 4.00 03/21/20 19:06 94 High Flow N/C 3.50 03/21/20 19:02 90 03/21/20 18:56 94 High Flow N/C 3.50 03/21/20 15:42 36.7 115 21 109/69 (82) 96 Nasal Cannula 4.00 03/21/20 15:10 96 High Flow N/C 4.00 03/21/20 12:36 90 03/21/20 11:22 37.2 134 20 132/58 (82) 92 Nasal Cannula 4.00 03/21/20 10:58 97 High Flow N/C 4.00 03/21/20 08:00 High Flow N/C 4.00 95 03/21/20 07:21 37.2 116 30 121/62 (81) 95 Nasal Cannula 4.00 03/21/20 07:10 95 High Flow N/C 4.00 03/21/20 07:00 90 03/21/20 05:46 High Flow N/C 5.00 95 03/21/20 05:45 37.5 98 26 112/66 (81) 95 Nasal Cannula 5.00 I & O 03/22/20 07:00 Intake Total 2065 ml Output Total 3900 ml Balance -1835 ml Height & Weight Height: '" Weight: lbs. oz. kg; 25.58 BMI Method: General Appearance: No Apparent Distress, WD/WN, Anxious, Chronically ill HEENT: PERRL/EOMI, Normal ENT Inspection Neck: Full Range of Motion, Non Tender, Supple Respiratory: Chest Non Tender, Lungs Clear, Normal Breath Sounds, No Accessory Muscle Use, No Respiratory Distress Cardiovascular: Regular Rate, Rhythm, No Edema, No Gallop, No JVD, No Murmur, Normal Peripheral Pulses Gastrointestinal: No distended, No guarding, No rebound, No tenderness; other (incisions c/d/i) Extremity: Pedal Edema (mild) Neurologic/Psychiatric: Alert, Oriented x3, No Motor/Sensory Deficits, Normal Mood/Affect Skin: Normal Color, Warm/Dry Lymphatic: No Adenopathy Results Lab Laboratory Tests 03/20/20 06:05 03/20/20 18:13 03/21/20 06:15 03/21/20 16:00 03/22/20 02:50 Assessment/Plan Assessment/Plan Hypoxia - -Acute worsening this morning along with acute distress. -Titrate oxygen down as tolerated Pulmonary edema r/o PNA - EF 60-65% -Continue Zosyn -Albright cultures pending Psychosis -Start risperdol Hypokalemia, hypomag, hypophos -Replace Afib rvr -Cardiology following -Cardizem gtt -Eliquis SBO s/p recent resection [place] [facility] [place]. Anguiano Post op Ileus EVERARDO BRIONES DO Mar 22, 2020 04:46
[2020-03-22] MEDS: POTASSIUM CL 10MEQ/50ML IVPB 50 ML IV SCH ×5 (05:22→08:24)
[2020-03-22] MEDS: MAGNESIUM 1 GM/100 ML IVPB 100 ML IV SCH (05:22)
[2020-03-22 07:25] VITALS: BP 127/59
[2020-03-22] MEDS: CATHETER FLUSH 10 ML SYR IV SCH ×3 (08:22→22:13)
[2020-03-22] MEDS: APIXABAN 5 MG (ELIQUIS) TABLET PO SCH ×2 (08:23→17:54)
[2020-03-22] MEDS: risperiDONE 1 MG (RisperDAL) TAB PO SCH ×2 (08:23→17:53)
[2020-03-22] MEDS: FAMOTIDINE 20 MG (PEPCID) TABLET PO SCH ×2 (08:23→17:53)
[2020-03-22] MEDS: ADVAIR HFA 115/21 MCG INHALER 8 GM IH SCH ×2 (08:53→22:42)
--- NOTE | 2020-03-22 09:15 | Physical Therapy Daily Note ---
PT Daily Note-Current Subjective Patient being transferred back to medical floor, will resume PT at this time. Patient in restroom with nursing pre tx, agrees to PT, has no complaints of pain. Appearance Patient in bed post tx with nurse call, phone, tray, all needs met, bed alarm on. Mental Status Patient Orientation: Person, Confused Attachments: Oxygen, Velasco Catheter, IV Transfers SCALE: Activities may be completed with or without assistive devices. 7-[id number]-[id number] completes the activity by him/herself with no assistance from a helper. 5-Set-up or Clean-up Assistance-helper sets up or cleans up; patient completes activity. Reserve assists only prior to or following the activity. 4-Supervision or Touching Assistance-helper provides verbal cues and/or touching/steadying and/or contact guard assistance as patient completes activity. Assistance may be provided throughout the activity or intermittently. 3-Partial/Moderate Assistance-helper does LESS THAN HALF the effort. Reserve lifts, holds or supports trunk or limbs, but provides less than half the effort. 2-Substantial/Maximal Assistance-helper does MORE THAN HALF the effort. Reserve lifts or holds trunk or limbs and provides more than half the effort. 7-Ttlianlpi-qdnkbx does ALL the effort. Patient does none of the effort to complete the activity. Or, the assistance of 2 or more helpers is required for the patient to complete the activity. If activity was not attempted, code reason: 7-Patient Refused. 9-Not Applicable-not attempted and the patient did not perform the activity before the current illness, exacerbation or injury. 10-Not Attempted due to Environmental Limitations-(lack of equipment, weather restraints, etc.). 88-Not Attempted due to Medical Conditions or Safety Concerns. Roll Left & Right (QC): 3 Sit to Lying (QC): 3 Sit to Stand (QC): 4 Chair/Lxv-nf-Ydffy Xfer(QC): 4 Toilet Transfer (QC): 4 Weight Bearing Full Weight Bearing Full Weight Bearing Gait Training Distance: 200' Walk 10 feet (QC): 4 Walk 50 ft with 2 Turns(QC): 4 Walk 150 ft (QC): 4 Gait Persons Needed: 1 Gait Assistive Device: FWW slow but steady ambulation Treatments bed mobility and transfers, ambulation Assessment Current Status: Fair Progress improving endurance but confused, O2 stayed in the 90's during ambulation PT Industrial Tech Instructor Goals Industrial Tech Instructor Goals PT Industrial Tech Instructor Goals Time Frame: Mar 23, 2020 Roll Left & Right (QC): 6 Sit to Lying (QC): 6 Lying-Sitting on Side/Bed(QC): 6 Sit to Stand (QC): 6 Chair/Txl-ze-Pclfi Xfer(QC): 6 Toilet Transfer (QC): 6 Does the Patient Walk: Yes Walk 10 feet (QC): 6 Walk 50ft with 2 Turns (QC): 6 Walk 150 ft (QC): 6 PT Plan Problem List Problem List: Activity Tolerance, Functional Strength, Safety, Balance, Gait, Transfer, Bed Mobility, ROM Treatment/Plan Treatment Plan: Continue Plan of Care Treatment Plan: Bed Mobility, Education, Functional Activity Ben, Functional Strength, Gait, Safety, Therapeutic Exercise, Transfers Treatment Duration: Mar 23, 2020 Frequency: 6 times per week Estimated Hrs Per Day: .25 hour per day Patient and/or Family Agrees t: Yes Safety Risks/Education Patient Education: Gait Training, Transfer Techniques, Correct Positioning, Safety Issues Teaching Recipient: Patient Teaching Methods: Demonstration, Discussion Response to Teaching: Reinforcement Needed Time/GCodes Time In: 08 Time Out: 08 Total Billed Treatment Time: 22 Total Billed Treatment 1 visit GT 22' TONJA RAMON PT Mar 22, 2020 09:15
[2020-03-22] MEDS: dilTIAZem DRIP PRE-MIX 125 ML IV SCH (11:48)
[2020-03-22 12:00] VITALS: BP 116/70
--- NOTE | 2020-03-22 12:08 | Progress Note - Hospitalist ---
Subjective HPI/CC On Admission Date Seen by Provider: Mar 22, 2020 Time Seen by Provider: 12:00 CC: AF w/RVR new onset transferred from [facility] for higher level of care to ICU HPI: This is a 80yoWF clinic patient of Dr Burch who was transferred from [facility] to [facility] ICU due to new onset AF w/RVR after an emergent small bowel obstruction s/p surgical resection by Dr Anguiano on 03/15. Patient has now converted to NSR. Dr Palomares consulted and placed her on OAC and PO Cardizem and is now ready for move to 4th floor. CLD initiated. Checked meds and labs and reviewed [facility] records. Subjective/Events-last exam Patient still hallucinating Delirium very apparent Labs stable O2 sat good Cardiology appreciated Updated daughter who lives in and counseled on delirium management Review of Systems General: Fatigue, Malaise Pulmonary: Dyspnea Neurological: Confusion Focused Exam Lactate Level 03/20/20 14:20: Lactic Acid Level 1.29 03/21/20 06:50: Lactic Acid Level 0.99 Objective Exam Vital Signs Vital Signs Date Time Temp Pulse Resp B/P (MAP) Pulse Ox O2 Delivery O2 Flow Rate FiO2 03/22/20 16:00 36.9 94 18 135/61 (85) 95 Nasal Cannula 2.00 03/22/20 08:00 95 Capillary Refill : NONE General Appearance: No Apparent Distress, WD/WN, Anxious, Chronically ill Respiratory: Chest Non Tender, Lungs Clear, Normal Breath Sounds, No Accessory Muscle Use, No Respiratory Distress Cardiovascular: Regular Rate, Rhythm, No Edema, No Gallop, No JVD, No Murmur, Normal Peripheral Pulses Neurologic/Psychiatric: Alert, Oriented x3, No Motor/Sensory Deficits, Normal Mood/Affect Results/Procedures Lab Laboratory Tests 03/22/20 02:50 Patient resulted labs reviewed. Assessment/Plan Assessment and Plan Assess & Plan/Chief Complaint Assessment: AF w/RVR new onset requiring transfer from [facility] to [facility] ICU now converted to NSR after Cardizem given at [facility] Recent emergent SBO s/o resection 03/15/[address] Anguiano at [facility] HTN HLP Post op ileus Plan: Pain control OAC Cardizem 03/18/20: Replace potassium Monitor HR AF Pain meds PT OT 03/19/20: Monitor BP and HR DC Catheter when surgery approves NGT DC? 03/20/20: DC NGT HLIVF? O2 IS IV Lasix Consult Dr Marcelino 03/21/20: Moved to [facility] Appreciate Rina Marcelino and Jelani Monitor closely O2 Velasco cath for diuresis 03/22/20: Monitor O2 sats Supportive care for delirium Diagnosis/Problems Diagnosis/Problems (1) Atrial fibrillation with rapid ventricular response Clinical Quality Measures DVT/VTE Risk/Contraindication: Risk Factor Score Per Nursin RFS Level Per Nursing on Admit: 4+=Very High KEYA VELA DO Mar 22, 2020 12:08
--- NOTE | 2020-03-22 12:35 | Progress Note ---
Subjective Date Seen by a Provider: Mar 22, 2020 Time Seen by a Provider: 10:40 Subjective/Events-last exam Patient seen with Dr. Galvez. Patient lying in bed with sitter in room. Patient confused. Denies any abdominal pain or N/V. Focused Exam Lactate Level 03/20/20 14:20: Lactic Acid Level 1.29 03/21/20 06:50: Lactic Acid Level 0.99 Objective Exam Vital Signs Date Time Temp Pulse Resp B/P (MAP) Pulse Ox O2 Delivery O2 Flow Rate FiO2 03/22/20 08:53 95 High Flow N/C 2.00 03/22/20 08:00 High Flow N/C 2.00 95 03/22/20 07:25 36.3 100 18 127/59 (81) 91 Nasal Cannula 2.00 03/22/20 06:46 89 03/22/20 04:00 36.6 95 20 96/71 (79) 90 Nasal Cannula 2.00 03/22/20 02:22 96 High Flow N/C 3.00 03/22/20 01:00 93 03/22/20 00:00 36.2 113 30 124/59 (80) 90 Nasal Cannula 4.00 03/21/20 22:26 96 High Flow N/C 3.00 03/21/20 20:00 High Flow N/C 4.00 95 03/21/20 19:22 36.4 103 20 123/53 (76) 97 Nasal Cannula 4.00 03/21/20 19:06 94 High Flow N/C 3.50 03/21/20 19:02 90 03/21/20 18:56 94 High Flow N/C 3.50 03/21/20 15:42 36.7 115 21 109/69 (82) 96 Nasal Cannula 4.00 03/21/20 15:10 96 High Flow N/C 4.00 03/21/20 12:36 90 I & O 03/22/20 07:00 Intake Total 2265 ml Output Total 4250 ml Balance -1985 ml Capillary Refill : NONE General Appearance: No Apparent Distress, WD/WN Neck: Full Range of Motion, Normal Inspection, Supple Respiratory: Normal Breath Sounds, No Accessory Muscle Use, No Respiratory Distress Cardiovascular: Regular Rate, Rhythm, No Edema Gastrointestinal: normal bowel sounds, non tender, soft, other (Abdominal incisions C/D/I) Extremity: Normal Capillary Refill, Normal Inspection, Normal Range of Motion Neurologic/Psychiatric: Alert, Other (Patient oriented to person and time but not place) Skin: Normal Color, Warm/Dry Results Lab Laboratory Tests 03/21/20 16:00: Sodium Level 140, Potassium Level 3.8, Chloride Level 100, Carbon Dioxide Level 26, Anion Gap 14, Blood Urea Nitrogen 10, Creatinine 0.66, Estimat Glomerular Filtration Rate > 60, BUN/Creatinine Ratio 15, Glucose Level 141H, Calcium Level 8.4L, Phosphorus Level 3.6, Magnesium Level 1.5L 03/22/20 02:50: Sodium Level 138, Potassium Level 3.4L, Chloride Level 102, Carbon Dioxide Level 25, Anion Gap 11, Blood Urea Nitrogen 10, Creatinine 0.55L, Estimat Glomerular Filtration Rate > 60, BUN/Creatinine Ratio 18, Glucose Level 92, Calcium Level 8.0L, Phosphorus Level 2.8, Magnesium Level 1.6, White Blood Count 12.0H, Red Blood Count 3.47L, Hemoglobin 10.1L, Hematocrit 32L, Mean Corpuscular Volume 92, Mean Corpuscular Hemoglobin 29, Mean Corpuscular Hemoglobin Concent 32, Red Cell Distribution Width 13.3, Platelet Count 487H, Mean Platelet Volume 9.3, Immature Granulocyte % (Auto) 3, Neutrophils (%) (Auto) 77H, Lymphocytes (%) (Auto) 12, Monocytes (%) (Auto) 7, Eosinophils (%) (Auto) 1, Basophils (%) (Auto) 0, Neutrophils # (Auto) 9.3H, Lymphocytes # (Auto) 1.4, Monocytes # (Auto) 0.8, Eosinophils # (Auto) 0.1, Basophils # (Auto) 0.0, Immature Granulocyte # (Auto) 0.4H, Corrected Calcium 9.0, Total Bilirubin 0.6, Aspartate Amino Transf (AST/SGOT) 29, Alanine Aminotransferase (ALT/SGPT) 23, Alkaline Phosphatase 55, Total Protein 5.4L, Albumin 2.7L Microbiology 03/17/20 MRSA Screen - Final, Complete MRSA not isolated Assessment/Plan Assessment/Plan Assess & Plan/Chief Complaint S/P SBR and RIH repair 03/15 Hypokalemia Hypophosphatemia Respiratory distress - Pulmonology following Afib with RVR Leukocytosis - WBC 12.0 POD#7 s/p small bowel resection, R inguinal hernia repair Tolerating dysphagia II diet Having BMs Zosyn continued wbc 12.0 today Lasix Electrolyte replacement Cardizem drip, IV BB Anticoagulation due to Afib rvr IS encouraged, Ambulate MAT protocol Continue with medical management Clinical Quality Measures DVT/VTE Risk/Contraindication: Risk Factor Score Per Nursin RFS Level Per Nursing on Admit: 4+=Very High PRIYANKA PHILLIPS DEWATERER OPERATOR Mar 22, 2020 12:35
--- NOTE | 2020-03-22 14:34 | Progress Note - Cardiology ---
Cardiology SOAP Progress Note Subjective: No cp or palp or syncope or shortness of breath Some gen malaise No n/v Objective: I&O/Vital Signs 03/22/20 03/22/20 03/22/20 03/22/20 04:00 06:46 07:25 08:00 Temp 36.6 36.3 Pulse 95 89 100 Resp 20 18 B/P (MAP) 96/71 (79) 127/59 (81) Pulse Ox 90 91 O2 Delivery Nasal Cannula Nasal Cannula High Flow N/C O2 Flow Rate 2.00 2.00 2.00 FiO2 95 03/22/20 03/22/20 08:53 12:00 Temp 37.1 Pulse 102 Resp 18 B/P (MAP) 116/70 (85) Pulse Ox 95 95 O2 Delivery High Flow N/C Nasal Cannula O2 Flow Rate 2.00 2.00 03/22/20 00:00 Intake Total 1965 ml Output Total 3600 ml Balance -1635 ml Constitutional: AAO x 3, well-developed, well-nourished Respiratory: No accessory muscle use; other (diminished bases bilat; dyspneic with conversation) Cardiovascular: irregularly irregular, tachycardia, S1 and S2, systolic murmur (soft GREGORIO at card base) Gastrointestional: No tender; soft, other (post op abdomen) Extremities: No clubbing, No cyanosis; significant edema (2 + bilat LE swelling) Neurologic/Psychiatric: oriented x 3, other (moves all limbs equally) Skin: No rash on exposed areas, No ulcerations on exposed areas Results/Procedures: Labs Laboratory Tests 03/21/20 16:00: Sodium Level 140, Potassium Level 3.8, Chloride Level 100, Carbon Dioxide Level 26, Anion Gap 14, Blood Urea Nitrogen 10, Creatinine 0.66, Estimat Glomerular Fi ltration Rate > 60, BUN/Creatinine Ratio 15, Glucose Level 141H, Calcium Level 8.4L, Phosphorus Level 3.6, Magnesium Level 1.5L 03/22/20 02:50: Sodium Level 138, Potassium Level 3.4L, Chloride Level 102, Carbon Dioxide Level 25, Anion Gap 11, Blood Urea Nitrogen 10, Creatinine 0.55L, Estimat Glomerular Filtration Rate > 60, BUN/Creatinine Ratio 18, Glucose Level 92, Calcium Level 8.0L, Phosphorus Level 2.8, Magnesium Level 1.6, White Blood Count 12.0H, Red Blood Count 3.47L, Hemoglobin 10.1L, Hematocrit 32L, Mean Corpuscular Volume 92, Mean Corpuscular Hemoglobin 29, Mean Corpuscular Hemoglobin Concent 32, Red Cell Distribution Width 13.3, Platelet Count 487H, Mean Platelet Volume 9.3, Immature Granulocyte % (Auto) 3, Neutrophils (%) (Auto) 77H, Lymphocytes (%) (Auto) 12, Monocytes (%) (Auto) 7, Eosinophils (%) (Auto) 1, Basophils (%) (Auto) 0, Neutrophils # (Auto) 9.3H, Lymphocytes # (Auto) 1.4, Monocytes # (Auto) 0.8, Eosinophils # (Auto) 0.1, Basophils # (Auto) 0.0, Immature Granulocyte # (Auto) 0.4H, Corrected Calcium 9.0, Total Bilirubin 0.6, Aspartate Amino Transf (AST/SGOT) 29, Alanine Aminotransferase (ALT/SGPT) 23, Alkaline Phosphatase 55, Total Protein 5.4L, Albumin 2.7L Microbiology 03/17/20 MRSA Screen - Final, Complete MRSA not isolated Laboratory Tests 03/20/20 18:13 03/21/20 06:15 03/21/20 16:00 03/22/20 02:50 A/P: Assessment: SOB - possible pneumonia - management per Medical services PAF with RVR first diagnosed on 03/17/20. Multiple episodes of recurrent PAF with RVR Echo on 03/17/20: LVEF 60-65%, PASP 25-30 mmHg S/p bowel resection and R inguinal hernia repair H/o hypertension Plan: * Change iv dilt to oral long-acting dilt * Continue iv bb * Replenish lytes * Continue Apixaban for stroke prophylaxis * Monitor labs SERGEY HUYNH MD FACP [facility] Mar 22, 2020 14:34
[2020-03-22 16:00] VITALS: BP 135/61
[2020-03-22] MEDS: OLANZapine 2.5 MG (ZyPREXA) TAB PO SCH (17:53)
[2020-03-22] MEDS: ACETAMINOPHEN 500 MG TAB (TYLENOL) PO PRN (17:54)
[2020-03-22] MEDS: ALPRAZolam 0.25 MG (XANAX) TAB PO PRN (17:54)
[2020-03-22 20:47] VITALS: BP 118/66
[2020-03-23] VITALS (9 sets, daily range): BP systolic 119–147; BP diastolic 63–82
[2020-03-23] MEDS: meTOprolol 5 MG/5 ML (LOPRESSOR) VIAL IV SCH ×8 (00:06→21:04)
[2020-03-23] MEDS: PIPERACILLIN/TAZOBACTAM (BULK) 4.5 GM in NS (IVPB) 100 ML IV SCH ×3 (00:06→16:17)
[2020-03-23] MEDS: RT-ALBUTEROL/IPRATROPIUM 3 ML (DUONEB) VIAL INH SCH ×6 (01:49→21:46)
[2020-03-23] MEDS: ACETAMINOPHEN 500 MG TAB (TYLENOL) PO PRN (01:53)
[2020-03-23] MEDS: ALPRAZolam 0.25 MG (XANAX) TAB PO PRN ×2 (01:53→08:24)
--- NOTE | 2020-03-23 05:38 | NUR ---
Patient has not slept at all throughout the night. Intermittent confusion and agitation noted. Patient has also been experiencing hallucinations throughout the shift. Will continue to monitor.
[2020-03-23] MEDS: CATHETER FLUSH 10 ML SYR IV SCH ×3 (05:57→21:05)
[2020-03-23 06:23] LABS: BASOPHILS % (AUTO) 0 % (0-10); EOSINOPHILS # (AUTO) 0.1 10^3/uL (0.0-0.3); EOSINOPHILS % (AUTO) 1 % (0-10); HEMATOCRIT 31 % (35-52); HEMOGLOBIN 9.8 g/dL (11.5-16.0); LYMPHOCYTES # (AUTO) 1.1 10^3/uL (1.0-4.0); LYMPHOCYTES % (AUTO) 10 % (12-44); MEAN CORPUSCULAR HEMOGLOBIN 30 pg (25-34); MEAN CORPUSCULAR HGB CONC 32 g/dL (32-36); MEAN CORPUSCULAR VOLUME 92 fL (80-99); MEAN PLATELET VOLUME 9.1 fL (9.0-12.2); MONOCYTES # (AUTO) 0.7 10^3/uL (0.0-1.0); MONOCYTES % (AUTO) 6 % (0-12); NEUTROPHILS # (AUTO) 9.5 10^3/uL (1.8-7.8); NEUTROPHILS % (AUTO) 80 % (42-75); PLATELET COUNT 497 10^3/uL (130-400); WHITE BLOOD COUNT 11.8 10^3/uL (4.3-11.0)
--- NOTE | 2020-03-23 06:31 | NUR ---
Patient was incontinent of bowel and bladder. Assisted patient with robyn-care and then to recliner. Patient is tearful this morning, telling this nurse "You didn't have to take the baby, it was just fine where it was". This nurse explained to patient that there is no baby in the room, that patient is hallucinating. Patient then said "I know you think I am stupid and crazy but you are not supposed to tell everyone that walks by". This nurse told patient that no one ever said that she was stupid or crazy. Patient stated that she was tired of being here and ready to go home. This nurse assured patient that she would be discharged to home as soon as the physicians deemed her medically stable to go home.
[2020-03-23 06:45] LABS: ALBUMIN 2.7 GM/DL (3.2-4.5); CHLORIDE 107 MMOL/L (98-107); SODIUM 140 MMOL/L (135-145)
[2020-03-23 06:47] LABS: GLUCOSE 95 MG/DL (70-105)
[2020-03-23 06:48] LABS: TOTAL PROTEIN 5.4 GM/DL (6.4-8.2)
[2020-03-23 06:49] LABS: BILIRUBIN,TOTAL 0.7 MG/DL (0.1-1.0); CARBON DIOXIDE 22 MMOL/L (21-32)
[2020-03-23 06:51] LABS: ALKALINE PHOSPHATASE 61 U/L (40-136); CREATININE SERUM 0.58 MG/DL (0.60-1.30); GFR ESTIMATED > 60; PHOSPHORUS 3.3 MG/DL (2.3-4.7)
[2020-03-23 06:52] LABS: BUN/CREATININE RATIO 17
[2020-03-23] MEDS: ADVAIR HFA 115/21 MCG INHALER 8 GM IH SCH ×2 (06:52→21:49)
[2020-03-23 06:54] LABS: ALANINE AMINOTRANSFERASE 34 U/L (0-55); MAGNESIUM 2.1 MG/DL (1.6-2.4)
--- NOTE | 2020-03-23 07:19 | Progress Note - Hospitalist ---
Subjective HPI/CC On Admission Date Seen by Provider: Mar 23, 2020 Time Seen by Provider: 10:30 CC: AF w/RVR new onset [place] [facility] [place] to [place] HPI: This is a 80yoWF clinic patient of Dr Burch who was transferred from [facility] [place] [facility] ICU due to new onset AF w/RVR after an emergent small bowel obstruction s/p surgical resection by Dr Anguiano on 03/15. Patient has now converted to NSR. Dr Palomares consulted and placed her on OAC and PO Cardizem and is now ready for move to 4th floor. CLD initiated. Checked meds and labs and reviewed [facility] [place]. Subjective/Events-last exam Confusion is a bit worse 1-on-[address] Delirium is noted Patient mad and rude at times Patient knows she is confused Will get her a shower today and wash her hair WBC 11.8 and hgb 9.8 BM++ Review of Systems General: Fatigue, Malaise Neurological: Weakness, Confusion Focused Exam Lactate Level Objective Exam Vital Signs Vital Signs Date Time Temp Pulse Resp B/P (MAP) Pulse Ox O2 Delivery O2 Flow Rate FiO2 03/24/20 06:05 81 110/62 (78) 03/24/20 04:08 36.9 20 96 Room Air 03/23/20 03:10 1.00 03/22/20 08:00 95 Capillary Refill : NONE General Appearance: No Apparent Distress, WD/WN Respiratory: Chest Non Tender, Lungs Clear, Normal Breath Sounds, No Accessory Muscle Use, No Respiratory Distress Cardiovascular: Regular Rate, Rhythm, No Edema, No Gallop, No JVD, No Murmur, Normal Peripheral Pulses Neurologic/Psychiatric: Alert, Disoriented Results/Procedures Lab Laboratory Tests 03/24/20 04:40 Patient resulted labs reviewed. Assessment/Plan Assessment and Plan Assess & Plan/Chief Complaint Assessment: AF w/RVR new onset requiring transfer from [facility] [place] [facility] ICU now converted to NSR after Cardizem given at [facility] [place] Recent emergent SBO s/o resection 03/15/[address] Anguiano at [facility] [place] HTN HLP Post op ileus Delirium Plan: Pain control OAC Cardizem 03/18/20: Replace potassium Monitor HR AF Pain meds PT OT 03/19/20: Monitor BP and HR DC Catheter when surgery approves NGT DC? 03/20/20: DC NGT HLIVF? O2 IS IV Lasix Consult Dr Marcelino 03/21/20: Moved to [facility] Appreciate Rina Marcelino and Jelani Monitor closely O2 Velasco cath for diuresis 03/22/20: Monitor O2 sats Supportive care for delirium 03/23/20: Delirium still present Monitor for falls Supportive care Diagnosis/Problems Diagnosis/Problems (1) Atrial fibrillation with rapid ventricular response Clinical Quality Measures DVT/VTE Risk/Contraindication: Risk Factor Score Per Nursin RFS Level Per Nursing on Admit: 4+=Very High KEYA VELA DO Mar 23, 2020 07:19
[2020-03-23] MEDS: FAMOTIDINE 20 MG (PEPCID) TABLET PO SCH ×2 (08:25→21:04)
[2020-03-23] MEDS: APIXABAN 5 MG (ELIQUIS) TABLET PO SCH ×2 (08:25→21:04)
[2020-03-23] MEDS: risperiDONE 1 MG (RisperDAL) TAB PO SCH ×2 (08:29→21:04)
--- NOTE | 2020-03-23 11:10 | Physical Therapy Daily Note ---
PT Daily Note-Current Subjective Patient in recliner pre tx, agrees to PT, has no complaints of pain. Confusion persists and she has a sitter in the room. Appearance Patient in recliner post tx with nurse call, phone, tray, all needs met, legs elevated, sitter in room. Mental Status Patient Orientation: Person, Confused Attachments: IV Transfers SCALE: Activities may be completed with or without assistive devices. 7-Thjeemflaw-durwwnr completes the activity by him/herself with no assistance from a helper. 5-Set-up or Clean-up Assistance-helper sets up or cleans up; patient completes activity. Orchard assists only prior to or following the activity. 4-Supervision or Touching Assistance-helper provides verbal cues and/or touching/steadying and/or contact guard assistance as patient completes activity. Assistance may be provided throughout the activity or intermittently. 3-Partial/Moderate Assistance-helper does LESS THAN HALF the effort. Orchard lifts, holds or supports trunk or limbs, but provides less than half the effort. 2-Substantial/Maximal Assistance-helper does MORE THAN HALF the effort. Orchard lifts or holds trunk or limbs and provides more than half the effort. 5-Nuozlljje-ddkctl does ALL the effort. Patient does none of the effort to complete the activity. Or, the assistance of 2 or more helpers is required for the patient to complete the activity. If activity was not attempted, code reason: 7-Patient Refused. 9-Not Applicable-not attempted and the patient did not perform the activity before the current illness, exacerbation or injury. 10-Not Attempted due to Environmental Limitations-(lack of equipment, weather restraints, etc.). 88-Not Attempted due to Medical Conditions or Safety Concerns. Sit to Stand (QC): 4 Chair/Stk-rw-Thllw Xfer(QC): 4 Weight Bearing Full Weight Bearing Full Weight Bearing Gait Training Distance: 400' Walk 10 feet (QC): 4 Walk 50 ft with 2 Turns(QC): 4 Walk 150 ft (QC): 4 Gait Persons Needed: 1 Gait Assistive Device: FWW CGA, slow but steady ambulation, needs cues for direction, occasional guidance for walker when turning Exercises Seated Therapy Exercises: Ankle pumps, Long arc quads Seated Reps: 20 Treatments ambulation, transfers, LE exercise Assessment Current Status: Fair Progress improving functional mobility but still very confused PT Fdc Goals Fdc Goals PT Air Pollution Inspector Goals Time Frame: Mar 23, 2020 Roll Left & Right (QC): 6 Sit to Lying (QC): 6 Lying-Sitting on Side/Bed(QC): 6 Sit to Stand (QC): 6 Chair/Qbk-lz-Hmxvz Xfer(QC): 6 Toilet Transfer (QC): 6 Does the Patient Walk: Yes Walk 10 feet (QC): 6 Walk 50ft with 2 Turns (QC): 6 Walk 150 ft (QC): 6 PT Plan Problem List Problem List: Activity Tolerance, Functional Strength, Safety, Balance, Gait, Transfer, Bed Mobility, ROM Treatment/Plan Treatment Plan: Continue Plan of Care Treatment Plan: Bed Mobility, Education, Functional Activity Ben, Functional Strength, Gait, Safety, Therapeutic Exercise, Transfers Treatment Duration: Mar 23, 2020 Frequency: 6 times per week Estimated Hrs Per Day: .25 hour per day Patient and/or Family Agrees t: Yes Safety Risks/Education Patient Education: Gait Training, Transfer Techniques, Correct Positioning, Safety Issues Teaching Recipient: Patient Teaching Methods: Demonstration, Discussion Response to Teaching: Reinforcement Needed Time/GCodes Time In: 1047 Time Out: 1057 Total Billed Treatment Time: 10 Total Billed Treatment 1 visit GT 10' TONJA RAMON PT Mar 23, 2020 11:10
--- NOTE | 2020-03-23 11:23 | Progress Note ---
Subjective Date Seen by a Provider: Mar 23, 2020 Time Seen by a Provider: 11:10 Subjective/Events-last exam Patient sitting in bedside chair, confused and talking to someone that is not there. Denies any issues. Focused Exam Lactate Level 03/20/20 14:20: Lactic Acid Level 1.29 03/21/20 06:50: Lactic Acid Level 0.99 Objective Exam Vital Signs Date Time Temp Pulse Resp B/P (MAP) Pulse Ox O2 Delivery O2 Flow Rate FiO2 03/23/20 11:01 93 Room Air 03/23/20 08:00 Room Air 03/23/20 07:12 36.8 83 18 137/69 (91) 95 Room Air 03/23/20 07:00 109 03/23/20 06:52 93 Room Air 03/23/20 05:56 101 128/63 (84) 03/23/20 03:10 36.1 101 20 121/63 (82) 94 Nasal Cannula 1.00 03/23/20 01:49 95 Nasal Cannula 1.50 03/23/20 01:00 91 03/23/20 00:01 36.2 94 20 127/67 (87) 94 Nasal Cannula 1.00 03/22/20 22:42 89 Room Air 03/22/20 22:37 89 Room Air 03/22/20 20:47 36.9 93 20 118/66 (83) 92 Room Air 03/22/20 20:00 92 Nasal Cannula 1.00 03/22/20 19:00 94 03/22/20 18:51 94 Room Air 03/22/20 16:00 36.9 94 18 135/61 (85) 95 Nasal Cannula 2.00 03/22/20 15:28 95 High Flow N/C 2.00 03/22/20 12:39 105 03/22/20 12:00 37.1 102 18 116/70 (85) 95 Nasal Cannula 2.00 I & O 03/23/20 07:00 Intake Total 1065 ml Output Total 1450 ml Balance -385 ml Capillary Refill : NONE General Appearance: No Apparent Distress, WD/WN Neck: Normal Inspection, Supple Respiratory: Normal Breath Sounds, No Accessory Muscle Use, No Respiratory Distress Cardiovascular: Regular Rate, Rhythm, No Edema Gastrointestinal: normal bowel sounds, non tender, soft Extremity: Normal Inspection, Normal Range of Motion Neurologic/Psychiatric: Alert, Other (Patient confused and appears to be hallucinating) Skin: Normal Color, Warm/Dry, Other (Abdominal incisions C/D/I) Results Lab Laboratory Tests 03/23/20 05:50: White Blood Count 11.8H, Red Blood Count 3.32L, Hemoglobin 9.8L, Hematocrit 31L, Mean Corpuscular Volume 92, Mean Corpuscular Hemoglobin 30, Mean Corpuscular Hemoglobin Concent 32, Red Cell Distribution Width 13.7, Platelet Count 497H, Mean Platelet Volume 9.1, Immature Granulocyte % (Auto) 3, Neutrophils (%) (Auto) 80H, Lymphocytes (%) (Auto) 10L, Monocytes (%) (Auto) 6, Eosinophils (%) (Auto) 1, Basophils (%) (Auto) 0, Neutrophils # (Auto) 9.5H, Lymphocytes # (Auto) 1.1, Monocytes # (Auto) 0.7, Eosinophils # (Auto) 0.1, Basophils # (Auto) 0.0, Immature Granulocyte # (Auto) 0.3H, Sodium Level 140, Potassium Level 4.0, Chloride Level 107, Carbon Dioxide Level 22, Anion Gap 11, Blood Urea Nitrogen 10, Creatinine 0.58L, Estimat Glomerular Filtration Rate > 60, BUN/Creatinine Ratio 17, Glucose Level 95, Calcium Level 8.0L, Corrected Calcium 9.0, Phosphorus Level 3.3, Magnesium Level 2.1, Total Bilirubin 0.7, Aspartate Amino Transf (AST/SGOT) 43H, Alanine Aminotransferase (ALT/SGPT) 34, Alkaline Phosphatase 61, Total Protein 5.4L, Albumin 2.7L Microbiology 03/21/20 Blood Culture - Preliminary, Resulted No growth 03/17/20 MRSA Screen - Final, Complete MRSA not isolated Assessment/Plan Assessment/Plan Assess & Plan/Chief Complaint S/P SBR and RIH repair 03/15 Hypokalemia Hypophosphatemia Respiratory distress - Pulmonology following Afib with RVR Leukocytosis - WBC 11.8 POD#8 s/p small bowel resection, R inguinal hernia repair Tolerating dysphagia II diet Having BMs Zosyn continued wbc 11.8 today Lasix Electrolyte replacement Cardizem drip, IV BB Anticoagulation due to Afib rvr IS encouraged, Ambulate MAT protocol Continue with medical management Clinical Quality Measures DVT/VTE Risk/Contraindication: Risk Factor Score Per Nursin RFS Level Per Nursing on Admit: 4+=Very High PRIYANKA PHILLIPS TRANSPORTATION REFRIGERATION TECHNICIAN Mar 23, 2020 11:23
--- NOTE | 2020-03-23 12:36 | Progress Note - Cardiology ---
Cardiology SOAP Progress Note Subjective: Does not report any symptoms. Appears confused. A sitter is by bedside. Objective: I&O/Vital Signs 03/23/20 03/23/20 03/23/20 03/23/20 01:00 01:49 03:10 05:56 Temp 36.1 Pulse 91 101 101 Resp 20 B/P (MAP) 121/63 (82) 128/63 (84) Pulse Ox 95 94 O2 Delivery Nasal Cannula Nasal Cannula O2 Flow Rate 1.50 1.00 03/23/20 03/23/20 03/23/20 03/23/20 06:52 07:00 07:12 08:00 Temp 36.8 Pulse 109 83 Resp 18 B/P (MAP) 137/69 (91) Pulse Ox 93 95 O2 Delivery Room Air Room Air Room Air 03/23/20 03/23/20 11:01 11:34 Temp 36.7 Pulse 99 Resp 20 B/P (MAP) 132/70 (90) Pulse Ox 93 95 O2 Delivery Room Air Room Air 03/23/20 00:00 Intake Total 890 ml Output Total 1450 ml Balance -560 ml Constitutional: No AAO x 3; well-developed, well-nourished Respiratory: No accessory muscle use; other (fair air entry, diminished at the bases) Cardiovascular: regular rate-rhythm, S1 and S2, systolic murmur (soft GREGORIO at card base) Gastrointestional: No tender; soft, other (post op abdomen) Extremities: swelling (mild leg edema); No clubbing, No cyanosis Neurologic/Psychiatric: No oriented x 3; other (moves all limbs equally) Skin: No rash on exposed areas, No ulcerations on exposed areas Results/Procedures: Labs Laboratory Tests 03/23/20 05:50: White Blood Count 11.8H, Red Blood Count 3.32L, Hemoglobin 9.8L, Hematocrit 31L, Mean Corpuscular Volume 92, Mean Corpuscular Hemoglobin 30, Mean Corpuscular Hemoglobin Concent 32, Red Cell Distribution Width 13.7, Platelet Count 497H, Mean Platelet Volume 9.1, Immature Granulocyte % (Auto) 3, Neutrophils (%) (Auto) 80H, Lymphocytes (%) (Auto) 10L, Monocytes (%) (Auto) 6, Eosinophils (%) (Auto) 1, Basophils (%) (Auto) 0, Neutrophils # (Auto) 9.5H, Lymphocytes # (Auto) 1.1, Monocytes # (Auto) 0.7, Eosinophils # (Auto) 0.1, Basophils # (Auto) 0.0, Immature Granulocyte # (Auto) 0.3H, Sodium Level 140, Potassium Level 4.0, Chloride Level 107, Carbon Dioxide Level 22, Anion Gap 11, Blood Urea Nitrogen 10, Creatinine 0.58L, Estimat Glomerular Filtration Rate > 60, BUN/Creatinine Ratio 17, Glucose Level 95, Calcium Level 8.0L, Corrected Calcium 9.0, Phosphorus Level 3.3, Magnesium Level 2.1, Total Bilirubin 0.7, Aspartate Amino Transf (AST/SGOT) 43H, Alanine Aminotransferase (ALT/SGPT) 34, Alkaline Phosphatase 61, Total Protein 5.4L, Albumin 2.7L Microbiology 03/21/20 Blood Culture - Preliminary, Resulted No growth 03/17/20 MRSA Screen - Final, Complete MRSA not isolated A/P: Assessment: Ac mental status change, managed by Dr Matilde YEUNG - possible pneumonia - management per Medical services PAF with RVR first diagnosed on 03/17/20. Multiple episodes of recurrent PAF with RVR Echo on 03/17/20: LVEF 60-65%, PASP 25-30 mmHg S/p bowel resection and R inguinal hernia repair H/o hypertension Plan: * Continue iv bb and oral long-acting dilt * Continue Apixaban for stroke prophylaxis, if no medical contraindications * Monitor labs * Management of confusion is with SERGEY Miguel MD FACP [facility] Mar 23, 2020 12:36
[2020-03-23] MEDS: OLANZapine 2.5 MG (ZyPREXA) TAB PO SCH (21:04)
[2020-03-24] VITALS (9 sets, daily range): BP systolic 109–128; BP diastolic 55–66
[2020-03-24] MEDS: meTOprolol 5 MG/5 ML (LOPRESSOR) VIAL IV SCH ×8 (00:17→20:42)
[2020-03-24] MEDS: PIPERACILLIN/TAZOBACTAM (BULK) 4.5 GM in NS (IVPB) 100 ML IV SCH ×3 (00:18→17:00)
[2020-03-24] MEDS: RT-ALBUTEROL/IPRATROPIUM 3 ML (DUONEB) VIAL INH SCH ×2 (01:37→06:56)
[2020-03-24 05:29] LABS: BASOPHILS % (AUTO) 0 % (0-10); EOSINOPHILS # (AUTO) 0.3 10^3/uL (0.0-0.3); EOSINOPHILS % (AUTO) 2 % (0-10); HEMATOCRIT 31 % (35-52); HEMOGLOBIN 9.9 g/dL (11.5-16.0); LYMPHOCYTES # (AUTO) 1.1 10^3/uL (1.0-4.0); LYMPHOCYTES % (AUTO) 10 % (12-44); MEAN CORPUSCULAR HEMOGLOBIN 29 pg (25-34); MEAN CORPUSCULAR HGB CONC 32 g/dL (32-36); MEAN CORPUSCULAR VOLUME 93 fL (80-99); MONOCYTES # (AUTO) 0.7 10^3/uL (0.0-1.0); MONOCYTES % (AUTO) 7 % (0-12); NEUTROPHILS # (AUTO) 8.8 10^3/uL (1.8-7.8); NEUTROPHILS % (AUTO) 79 % (42-75); PLATELET COUNT 554 10^3/uL (130-400); WHITE BLOOD COUNT 11.1 10^3/uL (4.3-11.0)
[2020-03-24 05:39] LABS: ALBUMIN 2.7 GM/DL (3.2-4.5); CHLORIDE 108 MMOL/L (98-107); SODIUM 141 MMOL/L (135-145)
[2020-03-24 05:41] LABS: GLUCOSE 85 MG/DL (70-105); TOTAL PROTEIN 5.4 GM/DL (6.4-8.2)
[2020-03-24 05:43] LABS: BILIRUBIN,TOTAL 0.5 MG/DL (0.1-1.0); CARBON DIOXIDE 22 MMOL/L (21-32)
[2020-03-24 05:45] LABS: ALKALINE PHOSPHATASE 66 U/L (40-136); GFR ESTIMATED > 60; PHOSPHORUS 3.4 MG/DL (2.3-4.7)
[2020-03-24 05:46] LABS: BUN/CREATININE RATIO 18
[2020-03-24 05:48] LABS: ALANINE AMINOTRANSFERASE 44 U/L (0-55)
[2020-03-24] MEDS: CATHETER FLUSH 10 ML SYR IV SCH ×3 (06:06→20:42)
[2020-03-24] MEDS: risperiDONE 1 MG (RisperDAL) TAB PO SCH ×2 (08:11→20:41)
[2020-03-24] MEDS: APIXABAN 5 MG (ELIQUIS) TABLET PO SCH ×2 (08:11→20:41)
[2020-03-24] MEDS: FAMOTIDINE 20 MG (PEPCID) TABLET PO SCH ×2 (08:11→20:41)
--- NOTE | 2020-03-24 10:27 | Progress Note ---
Subjective Date Seen by a Provider: Mar 24, 2020 Time Seen by a Provider: 09:40 Subjective/Events-last exam Patient seen with Dr. Galvez. Patient lying in bed watching TV. Patient is alert and oriented x3 today with no confusion. Patient denies any issues. Objective Exam Vital Signs Date Time Temp Pulse Resp B/P (MAP) Pulse Ox O2 Delivery O2 Flow Rate FiO2 03/24/20 09:32 36.2 75 94 21 03/24/20 08:00 36.2 79 18 113/61 (78) 94 Room Air 03/24/20 07:00 77 03/24/20 06:56 94 Nasal Cannula 2.00 03/24/20 06:05 81 110/62 (78) 03/24/20 04:08 36.9 78 20 124/63 (83) 96 Room Air 03/24/20 02:39 87 117/60 (79) 03/24/20 01:37 87 Room Air 03/24/20 01:00 89 03/23/20 23:53 37.0 93 19 131/64 (86) 92 Room Air 03/23/20 21:51 93 Room Air 03/23/20 21:03 91 133/68 (89) 03/23/20 20:00 Room Air 03/23/20 19:51 36.6 85 16 119/65 (83) 94 Room Air 03/23/20 19:00 85 03/23/20 15:08 36.8 107 16 147/82 (103) 95 Room Air 03/23/20 12:26 105 03/23/20 11:34 36.7 99 20 132/70 (90) 95 Room Air 03/23/20 11:01 93 Room Air I & O 03/24/20 07:00 Intake Total 1610 ml Balance 1610 ml Capillary Refill : NONE General Appearance: No Apparent Distress, WD/WN Neck: Normal Inspection, Supple Respiratory: Normal Breath Sounds, No Accessory Muscle Use, No Respiratory Distress Cardiovascular: Regular Rate, Rhythm, No Edema Gastrointestinal: normal bowel sounds, non tender, soft Extremity: Normal Inspection, Normal Range of Motion Neurologic/Psychiatric: Alert, Oriented x3 Skin: Normal Color, Warm/Dry, Other (Abdominal incisions C/D/I) Results Lab Laboratory Tests 03/24/20 04:40: White Blood Count 11.1H, Red Blood Count 3.37L, Hemoglobin 9.9L, Hematocrit 31L, Mean Corpuscular Volume 93, Mean Corpuscular Hemoglobin 29, Mean Corpuscular Hemoglobin Concent 32, Red Cell Distribution Width 14.0, Platelet Count 554H, Mean Platelet Volume 9.0, Immature Granulocyte % (Auto) 2, Neutrophils (%) (Auto) 79H, Lymphocytes (%) (Auto) 10L, Monocytes (%) (Auto) 7, Eosinophils (%) (Auto) 2, Basophils (%) (Auto) 0, Neutrophils # (Auto) 8.8H, Lymphocytes # (Auto) 1.1, Monocytes # (Auto) 0.7, Eosinophils # (Auto) 0.3, Basophils # (Auto) 0.0, Immature Granulocyte # (Auto) 0.2H, Sodium Level 141, Potassium Level 4.0, Chloride Level 108H, Carbon Dioxide Level 22, Anion Gap 11, Blood Urea Nitrogen 11, Creatinine 0.60, Estimat Glomerular Filtration Rate > 60, BUN/Creatinine Ratio 18, Glucose Level 85, Calcium Level 8.0L, Corrected Calcium 9.0, Phosphorus Level 3.4, Magnesium Level 2.0, Total Bilirubin 0.5, Aspartate Amino Transf (AST/SGOT) 46H, Alanine Aminotransferase (ALT/SGPT) 44, Alkaline Phosphatase 66, Total Protein 5.4L, Albumin 2.7L Microbiology 03/21/20 Blood Culture - Preliminary, Resulted No growth 03/17/20 MRSA Screen - Final, Complete MRSA not isolated Assessment/Plan Assessment/Plan Assess & Plan/Chief Complaint S/P SBR and RIH repair 03/15 Hypokalemia Hypophosphatemia Respiratory distress - Pulmonology following Afib with RVR Leukocytosis - WBC 11.1 POD#9 s/p small bowel resection, R inguinal hernia repair Tolerating dysphagia II diet - will increase diet to regular diet Having BMs Zosyn continued wbc 11.1 today Lasix Electrolyte replacement Cardizem drip, IV BB Anticoagulation due to Afib rvr IS encouraged, Ambulate MAT protocol Continue with medical management Clinical Quality Measures DVT/VTE Risk/Contraindication: Risk Factor Score Per Nursin RFS Level Per Nursing on Admit: 4+=Very High PRIYANKA PHILLIPS .NET DEVELOPER Mar 24, 2020 10:27
--- NOTE | 2020-03-24 12:28 | Progress Note - Hospitalist ---
Subjective HPI/CC On Admission Date Seen by Provider: Mar 24, 2020 Time Seen by Provider: 11:30 CC: AF w/RVR [place] [facility] [place] HPI: This is a 80yoWF clinic patient of Dr Burch who was [place] [facility] [place] [facility] ICU due to new onset AF w/RVR after an emergent small bowel obstruction s/p surgical resection by Dr Anguiano on 03/15. Patient has now converted to NSR. Dr Palomares consulted and placed her on OAC and PO Cardizem and is now ready for move to 4th floor. CLD initiated. Checked meds and labs and reviewed [facility] [place]. Subjective/Events-last exam Delirium much improved Spoke to and updated him on the possibility of DC tomorrow PT OT working with her WBC 11 Hgb 9.9 BM+ Review of Systems General: Fatigue Objective Exam Vital Signs Vital Signs Date Time Temp Pulse Resp B/P (MAP) Pulse Ox O2 Delivery O2 Flow Rate FiO2 03/24/20 16:00 37.2 89 18 113/66 (82) 95 Room Air 03/24/20 09:32 21 03/24/20 06:56 2.00 Capillary Refill : NONE General Appearance: No Apparent Distress, WD/WN, Chronically ill Respiratory: Chest Non Tender, Lungs Clear, Normal Breath Sounds, No Accessory Muscle Use, No Respiratory Distress Cardiovascular: Regular Rate, Rhythm, No Edema, No Gallop, No JVD, No Murmur, Normal Peripheral Pulses Neurologic/Psychiatric: Alert, Oriented x3, No Motor/Sensory Deficits, Normal Mood/Affect Results/Procedures Lab Laboratory Tests 03/24/20 04:40 Patient resulted labs reviewed. Assessment/Plan Assessment and Plan Assess & Plan/Chief Complaint Assessment: AF w/RVR new onset requiring [place] [facility] [facility] ICU now converted to NSR after Card[place]em [place] [facility] Recent emergent SBO s/o resection 03/15/[address] Anguiano [place] [facility] Post op ileus Delirium Plan: Pain control OAC Cardizem 03/18/20: Replace potassium Monitor HR AF Pain meds PT OT 03/19/20: Monitor BP and HR DC Catheter when surgery approves NGT DC? 03/20/20: DC NGT HLIVF? O2 IS IV Lasix Consult Dr Marcelino 12/31/20: Moved to [facility] Appreciate Rina Marcelino and Jelani Monitor closely O2 Velasco cath for diuresis 03/22/20: Monitor O2 sats Supportive care for delirium 03/23/20: Delirium still present Monitor for falls Supportive care 03/24/20: PT OT Monitor labs Monitor delirium Diagnosis/Problems Diagnosis/Problems (1) Atrial fibrillation with rapid ventricular response Clinical Quality Measures DVT/VTE Risk/Contraindication: Risk Factor Score Per Nursin RFS Level Per Nursing on Admit: 4+=Very High KEYA VELA DO Mar 24, 2020 12:28
--- NOTE | 2020-03-24 14:52 | Progress Note - Cardiology ---
Cardiology SOAP Progress Note Subjective: No cp or palp or syncope or shortness of breath Gen malaise No n/v Objective: I&O/Vital Signs 03/24/20 03/24/20 03/24/20 03/24/20 04:08 06:05 06:56 07:00 Temp 36.9 Pulse 78 81 77 Resp 20 B/P (MAP) 124/63 (83) 110/62 (78) Pulse Ox 96 94 O2 Delivery Room Air Nasal Cannula O2 Flow Rate 2.00 03/24/20 03/24/20 03/24/20 03/24/20 08:00 08:00 09:32 12:00 Temp 36.2 36.2 36.2 Pulse 79 75 79 Resp 18 18 B/P (MAP) 113/61 (78) 109/66 (80) Pulse Ox 94 94 93 O2 Delivery Room Air Room Air Room Air FiO2 21 03/24/20 12:58 Pulse 95 03/24/20 00:00 Intake Total 750 ml Balance 750 ml Constitutional: AAO x 3, well-developed, well-nourished Respiratory: No accessory muscle use; other (fair air entry, diminished at the bases) Cardiovascular: regular rate-rhythm, S1 and S2, systolic murmur (soft GREGORIO at card base) Gastrointestional: No tender; soft, other (post op abdomen) Extremities: swelling (mild leg edema); No clubbing, No cyanosis Neurologic/Psychiatric: No oriented x 3; other (moves all limbs equally) Skin: No rash on exposed areas, No ulcerations on exposed areas Results/Procedures: Labs Laboratory Tests 03/24/20 04:40: White Blood Count 11.1H, Red Blood Count 3.37L, Hemoglobin 9.9L, Hematocrit 31L, Mean Corpuscular Volume 93, Mean Corpuscular Hemoglobin 29, Mean Corpuscular Hemoglobin Concent 32, Red Cell Distribution Width 14.0, Platelet Count 554H, Mean Platelet Volume 9.0, Immature Granulocyte % (Auto) 2, Neutrophils (%) (Auto) 79H, Lymphocytes (%) (Auto) 10L, Monocytes (%) (Auto) 7, Eosinophils (%) (Auto) 2, Basophils (%) (Auto) 0, Neutrophils # (Auto) 8.8H, Lymphocytes # (Auto) 1.1, Monocytes # (Auto) 0.7, Eosinophils # (Auto) 0.3, Basophils # (Auto) 0.0, Immature Granulocyte # (Auto) 0.2H, Sodium Level 141, Potassium Level 4.0, Chloride Level 108H, Carbon Dioxide Level 22, Anion Gap 11, Blood Urea Nitrogen 11, Creatinine 0.60, Estimat Glomerular Filtration Rate > 60, BUN/Creatinine Ratio 18, Glucose Level 85, Calcium Level 8.0L, Corrected Calcium 9.0, Phosphorus Level 3.4, Magnesium Level 2.0, Total Bilirubin 0.5, Aspartate Amino Transf (AST/SGOT) 46H, Alanine Aminotransferase (ALT/SGPT) 44, Alkaline Phosphatase 66, Total Protein 5.4L, Albumin 2.7L Microbiology 03/21/20 Blood Culture - Preliminary, Resulted No growth 03/17/20 MRSA Screen - Final, Complete MRSA not isolated A/P: Assessment: Ac mental status change / delirium, resolved, managed by Dr Matilde YEUNG - possible pneumonia - management per Medical services PAF with RVR first diagnosed on 03/17/20. Multiple episodes of recurrent PAF with RVR Echo on 03/17/20: LVEF 60-65%, PASP 25-30 mmHg S/p bowel resection and R inguinal hernia repair H/o hypertension Plan: * Continue iv bb and oral long-acting dilt * Continue Apixaban for stroke prophylaxis, if no medical contraindications * Monitor labs SERGEY HUYNH MD FACP [facility] Mar 24, 2020 14:52
[2020-03-24] MEDS: OLANZapine 2.5 MG (ZyPREXA) TAB PO SCH (20:41)
[2020-03-24] MEDS: ADVAIR HFA 115/21 MCG INHALER 8 GM IH SCH ×2 (20:45→20:46)
[2020-03-25] MEDS: meTOprolol 5 MG/5 ML (LOPRESSOR) VIAL IV SCH ×4 (00:19→08:03)
[2020-03-25] MEDS: PIPERACILLIN/TAZOBACTAM (BULK) 4.5 GM in NS (IVPB) 100 ML IV SCH ×2 (00:20→08:48)
[2020-03-25 03:06] VITALS: BP 121/62
[2020-03-25 05:54] VITALS: BP 135/67
[2020-03-25] MEDS: CATHETER FLUSH 10 ML SYR IV SCH (05:58)
[2020-03-25 06:39] LABS: BASOPHILS % (AUTO) 0 % (0-10); EOSINOPHILS # (AUTO) 0.3 10^3/uL (0.0-0.3); EOSINOPHILS % (AUTO) 3 % (0-10); HEMATOCRIT 32 % (35-52); HEMOGLOBIN 9.6 g/dL (11.5-16.0); LYMPHOCYTES # (AUTO) 1.2 10^3/uL (1.0-4.0); LYMPHOCYTES % (AUTO) 12 % (12-44); MEAN CORPUSCULAR HEMOGLOBIN 29 pg (25-34); MEAN CORPUSCULAR HGB CONC 31 g/dL (32-36); MEAN CORPUSCULAR VOLUME 96 fL (80-99); MEAN PLATELET VOLUME 8.9 fL (9.0-12.2); MONOCYTES # (AUTO) 0.9 10^3/uL (0.0-1.0); MONOCYTES % (AUTO) 8 % (0-12); NEUTROPHILS # (AUTO) 7.9 10^3/uL (1.8-7.8); NEUTROPHILS % (AUTO) 75 % (42-75); PLATELET COUNT 546 10^3/uL (130-400); WHITE BLOOD COUNT 10.4 10^3/uL (4.3-11.0)
[2020-03-25 06:47] LABS: ALBUMIN 2.6 GM/DL (3.2-4.5); CHLORIDE 110 MMOL/L (98-107); POTASSIUM 3.8 MMOL/L (3.6-5.0); SODIUM 140 MMOL/L (135-145)
[2020-03-25 06:49] LABS: CALCIUM 7.9 MG/DL (8.5-10.1)
[2020-03-25 06:50] LABS: GLUCOSE 106 MG/DL (70-105); TOTAL PROTEIN 5.2 GM/DL (6.4-8.2)
[2020-03-25 06:51] LABS: BILIRUBIN,TOTAL 0.4 MG/DL (0.1-1.0); CARBON DIOXIDE 21 MMOL/L (21-32)
[2020-03-25 06:53] LABS: ALKALINE PHOSPHATASE 64 U/L (40-136); CREATININE SERUM 0.63 MG/DL (0.60-1.30); GFR ESTIMATED > 60
[2020-03-25 06:54] LABS: BUN/CREATININE RATIO 16
[2020-03-25 06:56] LABS: ALANINE AMINOTRANSFERASE 43 U/L (0-55)
--- NOTE | 2020-03-25 07:08 | Pulmonary Progress Note ---
Subjective Time Seen by a Provider: 07:07 Subjective/Events-last exam No complications noted. Sepsis Event Evaluation Height, Weight, BMI Height: '" Weight: lbs. oz. kg; 25.58 BMI Method: Exam Exam Vital Signs Date Time Temp Pulse Resp B/P (MAP) Pulse Ox O2 Delivery O2 Flow Rate FiO2 03/25/20 05:54 86 135/67 (89) 03/25/20 03:06 82 121/62 (81) 03/25/20 01:00 83 03/24/20 23:57 37.0 88 19 128/65 (86) 92 Room Air 03/24/20 20:48 90 Room Air 03/24/20 20:02 37.2 98 18 115/55 (75) 94 Room Air 03/24/20 20:00 Room Air 03/24/20 19:00 93 03/24/20 16:00 37.2 89 18 113/66 (82) 95 Room Air 03/24/20 12:58 95 03/24/20 12:00 36.2 79 18 109/66 (80) 93 Room Air 03/24/20 09:32 36.2 75 94 21 03/24/20 08:00 36.2 79 18 113/61 (78) 94 Room Air 03/24/20 08:00 Room Air I & O 03/25/20 07:00 Intake Total 1120 ml Balance 1120 ml Height & Weight Height: '" Weight: lbs. oz. kg; 25.58 BMI Method: General Appearance: No Apparent Distress, WD/WN, Chronically ill HEENT: PERRL/EOMI, Normal ENT Inspection Neck: Normal Inspection, Supple Respiratory: Chest Non Tender, Lungs Clear, Normal Breath Sounds, No Accessory Muscle Use, No Respiratory Distress Cardiovascular: Regular Rate, Rhythm, No Edema, No Gallop, No JVD, No Murmur, Normal Peripheral Pulses Gastrointestinal: normal bowel sounds, non tender, soft Extremity: Normal Inspection, Normal Range of Motion Neurologic/Psychiatric: Alert, Oriented x3, No Motor/Sensory Deficits, Normal Mood/Affect Skin: Normal Color, Warm/Dry, Other (Abdominal incisions C/D/I) Lymphatic: No Adenopathy Results Lab Laboratory Tests 03/24/20 04:40 03/25/20 06:11 Assessment/Plan Assessment/Plan Hypoxia - -Now on RA -CXR is improved Pulmonary edema with PNA - EF 60-65% -Continue Zosyn -Albright cultures pending Psychosis -risperdol Afib -Cardiology following -Eliquis SBO s/p recent resection at [facility] [place] per Dr. Anguiano Post op Ileus EVERARDO BRIONES DO Mar 25, 2020 07:08
[2020-03-25] MEDS: ADVAIR HFA 115/21 MCG INHALER 8 GM IH SCH (07:42)
[2020-03-25 08:00] VITALS: BP 141/73
[2020-03-25] MEDS: APIXABAN 5 MG (ELIQUIS) TABLET PO SCH (08:02)
[2020-03-25] MEDS: FAMOTIDINE 20 MG (PEPCID) TABLET PO SCH (08:02)
[2020-03-25] MEDS: risperiDONE 1 MG (RisperDAL) TAB PO SCH (08:03)
--- NOTE | 2020-03-25 09:44 | Progress Note - Surgery ---
LAURY ANGEL,MED STUDENT 03/25/20 0944: Subjective Date Seen by a Provider: Mar 25, 2020 Time Seen by a Provider: 08:25 Subjective/Events-last exam Pt seen and examined this morning. No acute events overnight. She is A+Ox3 and having only mild abdominal pain. Still some SOB and cough. She is having bowel movements and is wanting to walk more today. Review of Systems General: No Chills HEENT: No Head Aches, No Visual Changes Pulmonary: Dyspnea, Cough Cardiovascular: No: Chest Pain, Edema Gastrointestinal: No: Nausea, Vomiting, Abdominal Pain, Diarrhea, Constipation Genitourinary: No Dysuria Neurological: No: Weakness, Numbness, Confusion Objective Exam Vital Signs Date Time Temp Pulse Resp B/P (MAP) Pulse Ox O2 Delivery O2 Flow Rate FiO2 03/25/20 08:00 36.0 88 18 141/73 (95) 93 Room Air 03/25/20 07:42 92 Room Air 03/25/20 06:49 94 03/25/20 05:54 86 135/67 (89) 03/25/20 03:06 82 121/62 (81) 03/25/20 01:00 83 03/24/20 23:57 37.0 88 19 128/65 (86) 92 Room Air 03/24/20 20:48 90 Room Air 03/24/20 20:02 37.2 98 18 115/55 (75) 94 Room Air 03/24/20 20:00 Room Air 03/24/20 19:00 93 03/24/20 16:00 37.2 89 18 113/66 (82) 95 Room Air 03/24/20 12:58 95 03/24/20 12:00 36.2 79 18 109/66 (80) 93 Room Air I & O 03/25/20 07:00 Intake Total 1120 ml Balance 1120 ml Capillary Refill : NONE General Appearance: No Apparent Distress, Chronically ill HEENT: PERRL/EOMI Neck: Supple Respiratory: No Accessory Muscle Use, No Respiratory Distress, Other (coughing intermittently) Cardiovascular: No Edema, Irregularly Irregular Gastrointestinal: normal bowel sounds, soft, tenderness (minimal), other (incisions c/d/i with candis) Extremity: Normal Inspection, Normal Range of Motion Neurologic/Psychiatric: Alert, Oriented x3, Normal Mood/Affect Skin: Normal Color, Warm/Dry, Other (Abdominal incisions C/D/I) Lymphatic: No Adenopathy Results Lab Laboratory Tests 03/25/20 06:11: White Blood Count 10.4, Red Blood Count 3.30L, Hemoglobin 9.6L, Hematocrit 32L, Mean Corpuscular Volume 96, Mean Corpuscular Hemoglobin 29, Mean Corpuscular Hemoglobin Concent 31L, Red Cell Distribution Width 14.1, Platelet Count 546H, Mean Platelet Volume 8.9L, Immature Granulocyte % (Auto) 2, Neutrophils (%) (Auto) 75, Lymphocytes (%) (Auto) 12, Monocytes (%) (Auto) 8, Eosinophils (%) (Auto) 3, Basophils (%) (Auto) 0, Neutrophils # (Auto) 7.9H, Lymphocytes # (Auto) 1.2, Monocytes # (Auto) 0.9, Eosinophils # (Auto) 0.3, Basophils # (Auto) 0.0, Immature Granulocyte # (Auto) 0.2H, Sodium Level 140, Potassium Level 3.8, Chloride Level 110H, Carbon Dioxide Level 21, Anion Gap 9, Blood Urea Nitrogen 1 0, Creatinine 0.63, Estimat Glomerular Filtration Rate > 60, BUN/Creatinine Ratio 16, Glucose Level 106H, Calcium Level 7.9L, Corrected Calcium 9.0, Total Bilirubin 0.4, Aspartate Amino Transf (AST/SGOT) 39H, Alanine Aminotransferase (ALT/SGPT) 43, Alkaline Phosphatase 64, Total Protein 5.2L, Albumin 2.6L Microbiology 03/21/20 Blood Culture - Preliminary, Resulted No growth 03/17/20 MRSA Screen - Final, Complete MRSA not isolated Assessment/Plan Assessment/Plan Assessment/Plan S/P SBR and RIH repair 03/15 Respiratory distress - Pulmonology following Afib with RVR Leukocytosis - WBC 10.4 s/p small bowel resection, R inguinal hernia repair, POD 10 Zosyn continued, wbc decreasing Anticoagulation due to Afib rvr IS encouraged, pulling 1100 this morning increase ambulation okay to d/c from a surgical standpoint Clinical Quality Measures DVT/VTE Risk/Contraindication: Risk Factor Score Per Nursin RFS Level Per Nursing on Admit: 4+=Very High KVNG ANGUIANO DO 03/25/202118: Subjective Subjective/Events-last exam Patient continues to feel better. Tolerating diet. Having bowel movements and passing flatus. Doing better at using Incentive spirometer. Denies n/v fever sweats chills or chest pain. Objective Exam General Appearance: No Apparent Distress, Chronically ill HEENT: PERRL/EOMI, Normal ENT Inspection Neck: Full Range of Motion, Normal Inspection, Supple Respiratory: Chest Non Tender, No Accessory Muscle Use, No Respiratory Distress Cardiovascular: No Edema, Irregularly Irregular Gastrointestinal: soft, tenderness (minimal), other (incisions c/d/i with candis) Extremity: Normal Inspection, Normal Range of Motion Neurologic/Psychiatric: Alert, Oriented x3, Normal Mood/Affect Skin: Normal Color, Warm/Dry Lymphatic: No Adenopathy Assessment/Plan Assessment/Plan Assessment/Plan S/P SBR and RIH repair 03/15 Respiratory distress - Pulmonology following Afib with RVR Leukocytosis - WBC 10.4 s/p small bowel resection, R inguinal hernia repair, POD 10 has bowel function and tolerating diet Zosyn continued, wbc decreasing Anticoagulation due to Afib rvr IS encouraged, pulling 1100 this morning increase ambulation okay to d/c from a surgical standpoint Supervisory-Addendum Brief Verification & Attestation Participated in pt care: history, MDM, physical Personally performed: exam, history, MDM, supervision of care Care discussed with: Medical Student Procedures: n/a Results interpretation: Verified all documentation Verification and Attestation of Medical Student E/M Service A medical student performed and documented this service in my presence. I reviewed and verified all information documented by the medical student and made modifications to such information, when appropriate. I personally performed the physical exam and medical decision making. Kvng Anguiano, Mar 25, 2020,11:21 LAURY ANGEL,MED STUDENT Mar 25, 2020 09:44 KVNG ANGUIANO DO Mar 25, 2020 21:19
--- NOTE | 2020-03-25 09:47 | Physical Therapy Daily Note ---
PT Daily Note-Current Subjective Patient is up in recliner and agrees to PT. She reports she hopes to go home today. Mental Status Patient Orientation: Normal For Age Transfers SCALE: Activities may be completed with or without assistive devices. 6-Dnyjxpfwgp-oxzldkr completes the activity by him/herself with no assistance from a helper. 5-Set-up or Clean-up Assistance-helper sets up or cleans up; patient completes activity. [place] assists only prior to or following the activity. 4-Supervision or Touching Assistance-helper provides verbal cues and/or touching/steadying and/or contact guard assistance as patient completes activity. Assistance may be provided throughout the activity or intermittently. 3-Partial/Moderate Assistance-helper does LESS THAN HALF the effort. [place] lifts, holds or supports trunk or limbs, but provides less than half the effort. 2-Substantial/Maximal Assistance-helper does MORE THAN HALF the effort. [place] lifts or holds trunk or limbs and provides more than half the effort. 8-Rjuewhssi-qcabhu does ALL the effort. Patient does none of the effort to complete the activity. Or, the assistance of 2 or more helpers is required for the patient to complete the activity. If activity was not attempted, code reason: 7-Patient Refused. 9-Not Applicable-not attempted and the patient did not perform the activity before the current illness, exacerbation or injury. 10-Not Attempted due to Environmental Limitations-(lack of equipment, weather restraints, etc.). 88-Not Attempted due to Medical Conditions or Safety Concerns. Sit to Stand (QC): 5 Weight Bearing Full Weight Bearing Full Weight Bearing Gait Training Does the Patient Walk?: Yes Distance: 500' Walk 10 feet (QC): 5 Walk 50 ft with 2 Turns(QC): 5 Walk 150 ft (QC): 5 Gait Assistive Device: FWW safe and functional with no deviation/PT instructed patient to ambulate PRN in hallway with mask in place Assessment Current Status: Excellent Progress Patient tolerated treatment well and remains up in recliner with needs met. Chair alarm activated per nursing request. PT Registration Officer Goals Half-Way Goals PT Half-Way Goals Time Frame: Mar 23, 2020 Roll Left & Right (QC): 6 Sit to Lying (QC): 6 Lying-Sitting on Side/Bed(QC): 6 Sit to Stand (QC): 6 Chair/Wno-ky-Dovjs Xfer(QC): 6 Toilet Transfer (QC): 6 Does the Patient Walk: Yes Walk 10 feet (QC): 6 Walk 50ft with 2 Turns (QC): 6 Walk 150 ft (QC): 6 PT Plan Treatment/Plan Treatment Plan: Continue Plan of Care Treatment Plan: Bed Mobility, Education, Functional Activity Ben, Functional Strength, Gait, Safety, Therapeutic Exercise, Transfers Treatment Duration: Mar 23, 2020 Frequency: 6 times per week Estimated Hrs Per Day: .25 hour per day Patient and/or Family Agrees t: Yes Time/GCodes Time In: 934 Time Out: 942 Total Billed Treatment Time: 8 Total Billed Treatment 1 visit FA 8 min SHONDA FARIAS PT Mar 25, 2020 09:47
[2020-03-25] MEDS ORDERED: APIX5TAB PO (09:54)
[2020-03-25] MEDS ORDERED: DILT360C26 PO (09:54)
[2020-03-25] MEDS ORDERED: MTP25TSR PO (09:54)
--- NOTE | 2020-03-25 10:04 | Progress Note - Cardiology ---
Cardiology SOAP Progress Note Subjective: Sitting up in recliner at the bedside. States she feels good and wants to go home No c/o CP, palpitations, dyspnea Objective: I&O/Vital Signs 03/24/20 03/25/20 03/25/20 03/25/20 23:57 01:00 03:06 05:54 Temp 37.0 Pulse 88 83 82 86 Resp 19 B/P (MAP) 128/65 (86) 121/62 (81) 135/67 (89) Pulse Ox 92 O2 Delivery Room Air 03/25/20 03/25/20 03/25/20 06:49 07:42 08:00 Temp 36.0 Pulse 94 88 Resp 18 B/P (MAP) 141/73 (95) Pulse Ox 92 93 O2 Delivery Room Air Room Air 03/25/20 00:00 Intake Total 1070 ml Balance 1070 ml Constitutional: AAO x 3, well-developed, well-nourished Respiratory: No accessory muscle use; other (fair air entry, diminished at the bases) Cardiovascular: regular rate-rhythm, S1 and S2, systolic murmur (soft GREGORIO at card base) Gastrointestional: No tender; soft, other (post op abdomen) Extremities: swelling (mild leg edema); No clubbing, No cyanosis Neurologic/Psychiatric: No oriented x 3; other (moves all limbs equally) Skin: No rash on exposed areas, No ulcerations on exposed areas Results/Procedures: Labs Laboratory Tests 03/25/20 06:11: White Blood Count 10.4, Red Blood Count 3.30L, Hemoglobin 9.6L, Hematocrit 32L, Mean Corpuscular Volume 96, Mean Corpuscular Hemoglobin 29, Mean Corpuscular Hemoglobin Concent 31L, Red Cell Distribution Width 14.1, Platelet Count 546H, Mean Platelet Volume 8.9L, Immature Granulocyte % (Auto) 2, Neutrophils (%) (Auto) 75, Lymphocytes (%) (Auto) 12, Monocytes (%) (Auto) 8, Eosinophils (%) (Auto) 3, Basophils (%) (Auto) 0, Neutrophils # (Auto) 7.9H, Lymphocytes # (Auto) 1.2, Monocytes # (Auto) 0.9, Eosinophils # (Auto) 0.3, Basophils # (Auto) 0.0, Immature Granulocyte # (Auto) 0.2H, Sodium Level 140, Potassium Level 3.8, Chloride Level 110H, Carbon Dioxide Level 21, Anion Gap 9, Blood Urea Nitrogen 10, Creatinine 0.63, Estimat Glomerular Filtration Rate > 60, BUN/Creatinine Ratio 16, Glucose Level 106H, Calcium Level 7.9L, Corrected Calcium 9.0, Total Bilirubin 0.4, Aspartate Amino Transf (AST/SGOT) 39H, Alanine Aminotransferase (ALT/SGPT) 43, Alkaline Phosphatase 64, Total Protein 5.2L, Albumin 2.6L Microbiology 03/21/20 Blood Culture - Preliminary, Resulted No growth 03/17/20 MRSA Screen - Final, Complete MRSA not isolated A/P: Assessment: Ac mental status change / delirium, resolved, managed by Dr Matilde YEUNG - possible pneumonia - management per Medical services PAF with RVR first diagnosed on 03/17/20. Multiple episodes of recurrent PAF with RVR Echo on 03/17/20: LVEF 60-65%, PASP 25-30 mmHg S/p bowel resection and R inguinal hernia repair H/o hypertension Plan: * Change to oral bb and continue oral long-acting dilt * Continue Apixaban for stroke prophylaxis, if no medical contraindications * Monitor labs * Probable discharge home later today * F/U in 2 weeks as out pt LAURY STEPHENSON Mar 25, 2020 10:04
[2020-03-25] MEDS ORDERED: AMOX-358 PO (10:37)
[2020-03-25] MEDS ORDERED: FLUT12AE4 IH (10:37)
[2020-03-25] MEDS ORDERED: FAMO20TA5 PO (10:37)
--- NOTE | 2020-03-25 10:39 | D/C HH Face to Face Order ---
D/C Face to Face Orders Reconcile Patient Problems Problems Reviewed?: Yes Instructions for Patient [facility] [place] Patient Instructions/FollowUp: PCP DR Burch this week Physician to follow Patient: Marcin Discharge Diet for Home: No Restrictions Patient Problems: s/p SBO resection AF new onset Pulmonary edema Patient Data-Allergies,Ht & Wt Patient Allergies: Coded Allergies: No Known Drug Allergies (Unverified Allergy, Mild, 03/26/09) Home Health Need/Face to Face Date of Face to Face: Mar 25, 2020 Clinical Findings: Generalized weakness and fatigue, Muscle weakness I have seen Pt [id number]: Yes Discharged To: Home Diagnosis/Conditions: s/p SBO resection AF new onset Pulmonary edema Patient is Homebound due to: CognItive deficits, Muscle weakness Homebound Status Due to the above stated illness, injury or surgical procedure (medical condition or diagnosis) and associated clinical findings, the patient is homebound because of his/her inability to leave home except with aid of a supportive device and/or person AND leaving the home requires a considerable and taxing effort or is medically contraindicated. Pt req the following assistanc: Walker Home Health Nursing Orders Home Health Services Order: Nursing Services, [employer] Van Owner Operator-Evaluate & Treat, Physical Therapy-Evaluate & Treat Certify Stmt I certify that this patient is under my care and that I, a nurse practitioner or a physician; a shipping and receiving assistant working with me, had a face to face encounter that - meets the physician face to face encounter requirements with this patient as dated. KEYA VELA DO Mar 25, 2020 10:39
--- NOTE | 2020-03-25 10:40 | Discharge Summary ---
Diagnosis/Chief Complaint Date of Admission Mar 17, 2020 at 07:25 Date of Discharge Discharge Date: Mar 25, 2020 Discharge Diagnosis Assessment: AF w/RVR new onset [place] [facility] [facility] now converted to NSR after Card[place] [facility] Recent emergent SBO s/o resection 03/15/[address] [place]gu[place] [facility] H[place] Post op ileus Delirium Plan: Pain control OAC Cardizem 03/18/20: Replace potassium Monitor HR AF Pain meds PT OT 03/19/20: Monitor BP and HR DC Catheter when surgery approves NGT DC? 03/20/20: DC NGT HLIVF? O2 IS IV Lasix Consult Dr Marcelino 03/21/20: Moved to [facility] Appreciate Rina Marcelino and Jelani Monitor closely O2 Velasco cath for diuresis 03/22/20: Monitor O2 sats Supportive care for delirium 03/23/20: Delirium still present Monitor for falls Supportive care 03/24/20: PT OT Monitor labs Monitor delirium Discharge Summary Discharge Physical Examination Allergies: Coded Allergies: No Known Drug Allergies (Unverified Allergy, Mild, 03/26/09) Vitals & I&Os Vital Signs Date Time Temp Pulse Resp B/P (MAP) Pulse Ox O2 Delivery O2 Flow Rate FiO2 03/25/20 11:33 36.0 88 18 141/73 93 Room Air 03/24/20 09:32 21 03/24/20 06:56 2.00 General Appearance: Alert, Oriented X3, Cooperative Respiratory: Clear to Auscultation Neuro: Normal Gait, Normal Speech, Strength at 5/5 X4 Ext Hospital Course Was the Problem List Reviewed?: Yes Hospital course: Pt had a lengthy hospital course for a total of nine days after she was [place] [facility] to new onset AFIB with RVR with hypoxia s/p small bowel obstruction [place] [facility] [place]. Anguiano and Dr. Posadas. She had a significant lengthy stay requiring multiple medications to control the RVR, she also had some significant delirium that ultimately resolve at time of discharge. She was maintained on low dose antipsychotics to help her with that and overall her labs returned back to normal, she was able to participate in therapy, she was off oxygen, she will have home health set up and she will be discharged in improved condition, Hgb 9.6 and she will have close follow-up with Dr. Burch this week. Labs (last 24 hrs) Laboratory Tests 03/17/20 08:00: White Blood Count 16.5H, Red Blood Count 3.88, Hemoglobin 11.5, Hematocrit 36, Mean Corpuscular Volume 93, Mean Corpuscular Hemoglobin 30, Mean Corpuscular Hemoglobin Concent 32, Red Cell Distribution Width 12.7, Platelet Count 319, Mean Platelet Volume 9.7, Immature Granulocyte % (Auto) 1, Neutrophils (%) (Auto) 86H, Lymphocytes (%) (Auto) 5L, Monocytes (%) (Auto) 7, Eosinophils (%) (Auto) 1, Basophils (%) (Auto) 0, Neutrophils # (Auto) 14.2H, Lymphocytes # (Auto) 0.8L, Monocytes # (Auto) 1.2H, Eosinophils # (Auto) 0.1, Basophils # (Auto) 0.1, Immature Granulocyte # (Auto) 0.1, Neutrophils % (Manual) 60, Lymph ocytes % (Manual) 8, Monocytes % (Manual) 13, Band Neutrophils 19, Mathew Cells SLIGHT, Prothrombin Time 18.6H, INR Comment 1.5H, Activated Partial Thromboplast Time 42H, Sodium Level 137, Potassium Level 3.1L, Chloride Level 104, Carbon Dioxide Level 17L, Anion Gap 16H, Blood Urea Nitrogen 20H, Creatinine 0.76, Estimat Glomerular Filtration Rate > 60, BUN/Creatinine Ratio 26, Glucose Level 65L, Calcium Level 8.1L, Corrected Calcium 9.0, Total Bilirubin 0.9, Aspartate Amino Transf (AST/SGOT) 18, Alanine Aminotransferase (ALT/SGPT) 9, Alkaline Phosphatase 39L, Total Protein 5.4L, Albumin 2.9L 03/18/20 05:35: White Blood Count 15.1H, Red Blood Count 3.33L, Hemoglobin 9.9L, Hematocrit 31L, Mean Corpuscular Volume 94, Mean Corpuscular Hemoglobin 30, Mean Corpuscular Hemoglobin Concent 32, Red Cell Distribution Width 13.1, Platelet Count 319, Mean Platelet Volume 10.2, Immature Granulocyte % (Auto) 1, Neutrophils (%) (Auto) 91H, Lymphocytes (%) (Auto) 4L, Monocytes (%) (Auto) 4, Eosinophils (%) (Auto) 0, Basophils (%) (Auto) 0, Neutrophils # (Auto) 13.8H, Lymphocytes # (Auto) 0.5L, Monocytes # (Auto) 0.7, Eosinophils # (Auto) 0.0, Basophils # (Auto) 0.0, Immature Granulocyte # (Auto) 0.1, Sodium Level 142, Potassium Level 3.0L, Chloride Level 109H, Carbon Dioxide Level 17L, Anion Gap 16H, Blood Urea Nitrogen 17, Creatinine 0.68, Estimat Glomerular Filtration Rate > 60, BUN/Creatinine Ratio 25, Glucose Level 81, Calcium Level 8.4L, Corrected Calcium 9.4, Total Bilirubin 0.6, Aspartate Amino Transf (AST/SGOT) 18, Alanine Amino transferase (ALT/SGPT) 8, Alkaline Phosphatase 46, Total Protein 5.5L, Albumin 2.7L, Magnesium Level 2.1 03/19/20 05:52: White Blood Count 13.4H, Red Blood Count 3.30L, Hemoglobin 9.8L, Hematocrit 30L, Mean Corpuscular Volume 92, Mean Corpuscular Hemoglobin 30, Mean Corpuscular Hemoglobin Concent 32, Red Cell Distribution Width 13.2, Platelet Count 389, Mean Platelet Volume 9.8, Sodium Level 145, Potassium Level 3.4L, Chloride Level 112H, Carbon Dioxide Level 23, Anion Gap 10, Blood Urea Nitrogen 14, Creatinine 0.58L, Estimat Glomerular Filtration Rate > 60, BUN/Creatinine Ratio 24, Glucose Level 113H, Calcium Level 8.5, Magnesium Level 2.2, Iron Level 10L 03/20/20 05:33: Urine Color YELLOW, Urine Clarity CLEAR, Urine pH 5.5, Urine Specific Kenneth 1.010L, Urine Protein NEGATIVE, Urine Glucose (UA) NEGATIVE, Urine Ketones TRACEH, Urine Nitrite NEGATIVE, Urine Bilirubin NEGATIVE, Urine Urobilinogen 0.2, Urine Leukocyte Esterase NEGATIVE, Urine RBC (Auto) 3+H, Urine RBC 50-100H, Urine WBC NONE, Urine Squamous Epithelial Cells 0-2, Urine Crystals PRESENTH, Urine Calcium Oxalate Crystals RAREH, Urine Bacteria NEGATIVE, Urine Casts NONE, Urine Mucus NEGATIVE, Urine Culture Indicated NO 03/20/20 06:05: White Blood Count 13.6H, Red Blood Count 3.28L, Hemoglobin 9.7L, Hematocrit 30L, Mean Corpuscular Volume 92, Mean Corpuscular Hemoglobin 30, Mean Corpuscular Hemoglobin Concent 32, Red Cell Distribution Width 13.2, Platelet Count 451H, Mean Platelet Volume 9.8, Sodium Level 144, Potassium Level 2.8L, Chloride Level 109H, Carbon Dioxide Level 21, Anion Gap 14, Blood Urea Nitrogen 12, Creatinine 0.63, Estimat Glomerular Filtration Rate > 60, BUN/Creatinine Ratio 19, Glucose Level 145H, Calcium Level 8.7, Magnesium Level 1.7, B-Type Natriuretic Peptide 253.9H, Procalcitonin 3.86H 03/20/20 14:20: Lactic Acid Level 1.29, Phosphorus Level < 0.7*L 03/20/20 18:13: Sodium Level 142, Potassium Level 3.2L, Chloride Level 104, Carbon Dioxide Level 27, Anion Gap 11, Blood Urea Nitrogen 10, Creatinine 0.62, Estimat Glomerular Filtration Rate > 60, BUN/Creatinine Ratio 16, Glucose Level 118H, Calcium Level 8.7, Magnesium Level 2.0 03/21/20 06:15: White Blood Count 12.8H, Red Blood Count 3.42L, Hemoglobin 9.8L, Hematocrit 31L, Mean Corpuscular Volume 92, Mean Corpuscular Hemoglobin 29, Mean Corpuscular Hemoglobin Concent 31L, Red Cell Distribution Width 13.2, Platelet Count 479H, Mean Platelet Volume 9.1, Sodium Level 142, Potassium Level 3.7, Chloride Level 108H, Carbon Dioxide Level 23, Anion Gap 11, Blood Urea Nitrogen 12, Creatinine 0.59L, Estimat Glomerular Filtration Rate > 60, BUN/Creatinine Ratio 20, Glucose Level 113H, Calcium Level 8.2L, Magnesium Level 1.9, Phosphorus Level 1.7L, I mmature Granulocyte % (Auto) 3, Neutrophils (%) (Auto) 78H, Lymphocytes (%) (Auto) 12, Monocytes (%) (Auto) 7, Eosinophils (%) (Auto) 0, Basophils (%) (Auto) 0, Neutrophils # (Auto) 10.0H, Lymphocytes # (Auto) 1.5, Monocytes # (Auto) 0.9, Eosinophils # (Auto) 0.0, Basophils # (Auto) 0.0, Immature Granulocyte # (Auto) 0.3H, Corrected Calcium 9.1, Total Bilirubin 0.8, Aspartate Amino Transf (AST/SGOT) 31, Alanine Aminotransferase (ALT/SGPT) 20, Alkaline Phosphatase 56, Total Protein 5.8L, Albumin 2.9L 03/21/20 06:50: Lactic Acid Level 0.99 03/21/20 07:10: Urine Color YELLOW, Urine Clarity CLEAR, Urine pH 6.0, Urine Specific Kenneth 1.015L, Urine Protein TRACEH, Urine Glucose (UA) NEGATIVE, Urine Ketones 1+H, Urine Nitrite NEGATIVE, Urine Bilirubin NEGATIVE, Urine Urobilinogen 0.2, Urine Leukocyte Esterase NEGATIVE, Urine RBC (Auto) 3+H, Urine RBC 2-5H, Urine WBC NONE, Urine Squamous Epithelial Cells 0-2, Urine Crystals NONE, Urine Bacteria NEGATIVE, Urine Casts NONE, Urine Mucus NEGATIVE, Urine Culture Indicated NO 03/21/20 08:00: Blood Gas Puncture Site R RAD, Blood Gas Patient Temperature 37.2, Arterial Blood pH 7.48H, Arterial Blood Partial Pressure CO2 35, Arterial Blood Partial Pressure O2 85, Arterial Blood HCO3 25, Arterial Blood Total CO2 26.2, Arterial Blood Oxygen Saturation 97, Arterial Blood Base Excess 1.9, Natanael Test YES-POS, Blood Gas Ventilator Setting NO, Blood Gas Inspired Oxygen 4L 03/21/20 16:00: Sodium Level 140, Potassium Level 3.8, Chloride Level 100, Carbon Dioxide Level 26, Anion Gap 14, Blood Urea Nitrogen 10, Creatinine 0.66, Estimat Glomerular Filtration Rate > 60, BUN/Creatinine Ratio 15, Glucose Level 141H, Calcium Level 8.4L, Phosphorus Level 3.6, Magnesium Level 1.5L 03/22/20 02:50: White Blood Count 12.0H, Red Blood Count 3.47L, Hemoglobin 10.1L, Hematocrit 32L , Mean Corpuscular Volume 92, Mean Corpuscular Hemoglobin 29, Mean Corpuscular Hemoglobin Concent 32, Red Cell Distribution Width 13.3, Platelet Count 487H, Mean Platelet Volume 9.3, Immature Granulocyte % (Auto) 3, Neutrophils (%) (Auto) 77H, Lymphocytes (%) (Auto) 12, Monocytes (%) (Auto) 7, Eosinophils (%) (Auto) 1, Basophils (%) (Auto) 0, Neutrophils # (Auto) 9.3H, Lymphocytes # (Auto) 1.4, Monocytes # (Auto) 0.8, Eosinophils # (Auto) 0.1, Basophils # (Auto) 0.0, Immature Granulocyte # (Auto) 0.4H, Sodium Level 138, Potassium Level 3.4L, Chloride Level 102, Carbon Dioxide Level 25, Anion Gap 11, Blood Urea Nitrogen 10, Creatinine 0.55L, Estimat Glomerular Filtration Rate > 60, BUN/Creatinine Ratio 18, Glucose Level 92, Calcium Level 8.0L, Corrected Calcium 9.0, Phosphorus Level 2.8, Magnesium Level 1.6, Total Bilirubin 0.6, Aspartate Amino Transf (AST/SGOT) 29, Alanine Aminotransferase (ALT/SGPT) 23, Alkaline Phosphatase 55, Total Protein 5.4L, Albumin 2.7L 03/23/20 05:50: White Blood Count 11.8H, Red Blood Count 3.32L, Hemoglobin 9.8L, Hematocrit 31L, Mean Corpuscular Volume 92, Mean Corpuscular Hemoglobin 30, Mean Corpuscular Hemoglobin Concent 32, Red Cell Distribution Width 13.7, Platelet Count 497H, Mean Platelet Volume 9.1, Immature Granulocyte % (Auto) 3, Neutrophils (%) (Auto) 80H, Lymphocytes (%) (Auto) 10L, Monocytes (%) (Auto) 6, Eosinophils (%) (Auto) 1, Basophils (%) (Auto) 0, Neutrophils # (Auto) 9.5H, Lymphocytes # (Auto) 1.1, Monocytes # (Auto) 0.7, Eosinophils # (Auto) 0.1, Basophils # (Auto) 0.0, Immature Granulocyte # (Auto) 0.3H, Sodium Level 140, Potassium Level 4.0, Chloride Level 107, Carbon Dioxide Level 22, Anion Gap 11, Blood Urea Nitrogen 10, Creatinine 0.58L, Estimat Glomerular Filtration Rate > 60, BUN/Creatinine Ratio 17, Glucose Level 95, Calcium Level 8.0L, Corrected Calcium 9.0, Phosphorus Level 3.3, Magnesium Level 2.1, Total Bilirubin 0.7, Aspartate Amino Transf (AST/SGOT) 43H, Alanine Aminotransferase (ALT/SGPT) 34, Alkaline Phosphatase 61, Total Protein 5.4L, Albumin 2.7L 03/24/20 04:40: White Blood Count 11.1H, Red Blood Count 3.37L, Hemoglobin 9.9L, Hematocrit 31L, Mean Corpuscular Volume 93, Mean Corpuscular Hemoglobin 29, Mean Corpuscular Hem oglobin Concent 32, Red Cell Distribution Width 14.0, Platelet Count 554H, Mean Platelet Volume 9.0, Immature Granulocyte % (Auto) 2, Neutrophils (%) (Auto) 79H , Lymphocytes (%) (Auto) 10L, Monocytes (%) (Auto) 7, Eosinophils (%) (Auto) 2, Basophils (%) (Auto) 0, Neutrophils # (Auto) 8.8H, Lymphocytes # (Auto) 1.1, Monocytes # (Auto) 0.7, Eosinophils # (Auto) 0.3, Basophils # (Auto) 0.0, Immature Granulocyte # (Auto) 0.2H, Sodium Level 141, Potassium Level 4.0, Chloride Level 108H, Carbon Dioxide Level 22, Anion Gap 11, Blood Urea Nitrogen 11, Creatinine 0.60, Estimat Glomerular Filtration Rate > 60, BUN/Creatinine Ratio 18, Glucose Level 85, Calcium Level 8.0L, Corrected Calcium 9.0, Phosphorus Level 3.4, Magnesium Level 2.0, Total Bilirubin 0.5, Aspartate Amino Transf (AST/SGOT) 46H, Alanine Aminotransferase (ALT/SGPT) 44, Alkaline Phosphatase 66, Total Protein 5.4L, Albumin 2.7L 03/25/20 06:11: White Blood Count 10.4, Red Blood Count 3.30L, Hemoglobin 9.6L, Hematocrit 32L, Mean Corpuscular Volume 96, Mean Corpuscular Hemoglobin 29, Mean Corpuscular Hemoglobin Concent 31L, Red Cell Distribution Width 14.1, Platelet Count 546H, Mean Platelet Volume 8.9L, Immature Granulocyte % (Auto) 2, Neutrophils (%) (Auto) 75, Lymphocytes (%) (Auto) 12, Monocytes (%) (Auto) 8, Eosinophils (%) (Auto) 3, Basophils (%) (Auto) 0, Neutrophils # (Auto) 7.9H, Lymphocytes # (Auto) 1.2, Monocytes # (Auto) 0.9, Eosinophils # (Auto) 0.3, Basophils # (Auto) 0.0, Immature Granulocyte # (Auto) 0.2H, Sodium Level 140, Potassium Level 3.8, Chloride Level 110H, Carbon Dioxide Level 21, Anion Gap 9, Blood Urea Nitrogen 10, Creatinine 0.63, Estimat Glomerular Filtration Rate > 60, BUN/Creatinine Ratio 16, Glucose Level 106H, Calcium Level 7.9L, Corrected Calcium 9.0, Total Bilirubin 0.4, Aspartate Amino Transf (AST/SGOT) 39H, Alanine Aminotransferase (ALT/SGPT) 43, Alkaline Phosphatase 64, Total Protein 5.2L, Albumin 2.6L Microbiology 03/21/20 Blood Culture - Final, Complete No growth 03/17/20 MRSA Screen - Final, Complete MRSA not isolated Pending Labs Microbiology Date/Time Source Procedure Growth Status 03/21/20 06:55 Peripheral Left Forearm Blood Culture - Final No growth Complete 03/21/20 06:50 Peripheral Rt Ac Blood Culture - Final No growth Complete 03/21/20 06:43 Peripheral Lt Ac Blood Culture - Final No growth Complete 03/17/20 09:30 Nasal MRSA Screen - Final MRSA not isolated Complete Laboratory Tests 03/17/20 08:00: White Blood Count 16.5, Red Blood Count 3.88, Hemoglobin 11.5, Hematocrit 36, Mean Corpuscular Volume 93, Mean Corpuscular Hemoglobin 30, Mean Corpuscular Hemoglobin Concent 32, Red Cell Distribution Width 12.7, Platelet Count 319, Mean Platelet Volume 9.7, Immature Granulocyte % (Auto) 1, Neutrophils (%) (Auto) 86, Lymphocytes (%) (Auto) 5, Monocytes (%) (Auto) 7, Eosinophils (%) (Au to) 1, Basophils (%) (Auto) 0, Neutrophils # (Auto) 14.2, Lymphocytes # (Auto) 0.8, Monocytes # (Auto) 1.2, Eosinophils # (Auto) 0.1, Basophils # (Auto) 0.1, Immature Granulocyte # (Auto) 0.1, Neutrophils % (Manual) 60, Lymphocytes % (Manual) 8, Monocytes % (Manual) 13, Band Neutrophils 19, Daisetta Cells SLIGHT, Prothrombin Time 18.6, INR Comment 1.5, Activated Partial Thromboplast Time 42, Sodium Level 137, Potassium Level 3.1, Chloride Level 104, Carbon Dioxide Level 17, Anion Gap 16, Blood Urea Nitrogen 20, Creatinine 0.76, Estimat Glomerular Filtration Rate > 60, BUN/Creatinine Ratio 26, Glucose Level 65, Calcium Level 8.1, Corrected Calcium 9.0, Total Bilirubin 0.9, Aspartate Amino Transf (AST/SGOT) 18, Alanine Aminotransferase (ALT/SGPT) 9, Alkaline Phosphatase 39, Total Protein 5.4, Albumin 2.9 03/18/20 05:35: White Blood Count 15.1, Red Blood Count 3.33, Hemoglobin 9.9, Hematocrit 31, Mean Corpuscular Volume 94, Mean Corpuscular Hemoglobin 30, Mean Corpuscular Hemoglobin Concent 32, Red Cell Distribution Width 13.1, Platelet Count 319, Mean Platelet Volume 10.2, Immature Granulocyte % (Auto) 1, Neutrophils (%) (Auto) 91, Lymphocytes (%) (Auto) 4, Monocytes (%) (Auto) 4, Eosinophils (%) (Auto) 0, Basophils (%) (Auto) 0, Neutrophils # (Auto) 13.8, Lymphocytes # (Auto) 0.5, Monocytes # (Auto) 0.7, Eosinophils # (Auto) 0.0, Basophils # (Auto) 0.0, Immature Granulocyte # (Auto) 0.1, Sodium Level 142, Potassium Level 3.0, Chloride Level 109, Carbon Dioxide Level 17, Anion Gap 16, Blood Urea Nitrogen 17, Creatinine 0.68, Estimat Glomerular Filtration Rate > 60, BUN/Creatinine Ratio 25, Glucose Level 81, Calcium Level 8.4, Corrected Calcium 9.4, Total Bilirubin 0.6, Aspartate Amino Transf (AST/SGOT) 18, Alanine Aminotransferase (ALT/SGPT) 8, Alkaline Phosphatase 46, Total Protein 5.5, Albumin 2.7, Magnesium Level 2.1 03/19/20 05:52: White Blood Count 13.4, Red Blood Count 3.30, Hemoglobin 9.8, Hematocrit 30, Mean Corpuscular Volume 92, Mean Corpuscular Hemoglobin 30, Mean Corpuscular Hemoglobin Concent 32, Red Cell Distribution Width 13.2, Platelet Count 389, Mean Platelet Volume 9.8, Sodium Level 145, Potassium Level 3.4, Chloride Level 112, Carbon Dioxide Level 23, Anion Gap 10, Blood Urea Nitrogen 14, Creatinine 0.58, Estimat Glomerular Filtration Rate > 60, BUN/Creatinine Ratio 24, Glucose Level 113, Calcium Level 8.5, Magnesium Level 2.2, Iron Level 10 03/20/20 05:33: Urine Color YELLOW, Urine Clarity CLEAR, Urine pH 5.5, Urine Specific Kenneth 1.010, Urine Protein NEGATIVE, Urine Glucose (UA) NEGATIVE, Urine Ketones TRACE, Urine Nitrite NEGATIVE, Urine Bilirubin NEGATIVE, Urine Urobilinogen 0.2, Urine Leukocyte Esterase NEGATIVE, Urine RBC (Auto) 3+, Urine RBC 50-100, Urine WBC NONE, Urine Squamous Epithelial Cells 0-2, Urine Crystals PRESENT, Urine Calcium Oxalate Crystals RARE, Urine Bacteria NEGATIVE, Urine Casts NONE, Urine Mucus NEGATIVE, Urine Culture Indicated NO 03/20/20 06:05: White Blood Count 13.6, Red Blood Count 3.28, Hemoglobin 9.7, Hematocrit 30, Mean Corpuscular Volume 92, Mean Corpuscular Hemoglobin 30, Mean Corpuscular Hemoglobin Concent 32, Red Cell Distribution Width 13.2, Platelet Count 451, Mean Platelet Volume 9.8, Sodium Level 144, Potassium Level 2.8, Chloride Level 109, Carbon Dioxide Level 21, Anion Gap 14, Blood Urea Nitrogen 12, Creatinine 0.63, Estimat Glomerular Filtration Rate > 60, BUN/Creatinine Ratio 19, Glucose Level 145, Calcium Level 8.7, Magnesium Level 1.7, B-Type Natriuretic Peptide 253.9, Procalcitonin 3.86 03/20/20 14:20: Lactic Acid Level 1.29, Phosphorus Level < 0.7 03/20/20 18:13: Sodium Level 142, Potassium Level 3.2, Chloride Level 104, Carbon Dioxide Level 27, Anion Gap 11, Blood Urea Nitrogen 10, Creatinine 0.62, Estimat Glomerular Filtration Rate > 60, BUN/Creatinine Ratio 16, Glucose Level 118, Calcium Level 8.7, Magnesium Level 2.0 03/21/20 06:15: White Blood Count 12.8, Red Blood Count 3.42, Hemoglobin 9.8, Hematocrit 31, Mean Corpuscular Volume 92, Mean Corpuscular Hemoglobin 29, Mean Corpuscular Hemoglobin Concent 31, Red Cell Distribution Width 13.2, Platelet Count 479, Mean Platelet Volume 9.1, Sodium Level 142, Potassium Level 3.7, Chloride Level 108, Carbon Dioxide Level 23, Anion Gap 11, Blood Urea Nitrogen 12, Creatinine 0.59, Estimat Glomerular Filtration Rate > 60, BUN/Creatinine Ratio 20, Glucose Level 113, Calcium Level 8.2, Magnesium Level 1.9, Phosphorus Level 1.7, Immature Granulocyte % (Auto) 3, Neutrophils (%) (Auto) 78, Lymphocytes (%) (Auto) 12, Monocytes (%) (Auto) 7, Eosinophils (%) (Auto) 0, Basophils (%) (Auto) 0, Neutrophils # (Auto) 10.0, Lymphocytes # (Auto) 1.5, Monocytes # (Auto) 0.9, Eosinophils # (Auto) 0.0, Basophils # (Auto) 0.0, Immature Granulocyte # (Auto) 0.3, Corrected Calcium 9.1, Total Bilirubin 0.8, Aspartate Amino Transf (AST/SGOT) 31, Alanine Aminotransferase (ALT/SGPT) 20, Alkaline Phosphatase 56, Total Protein 5.8, Albumin 2.9 03/21/20 06:50: Lactic Acid Level 0.99 03/21/20 07:10: Urine Color YELLOW, Urine Clarity CLEAR, Urine pH 6.0, Urine Specific Kenneth 1.015, Urine Protein TRACE, Urine Glucose (UA) NEGATIVE, Urine Ketones 1+, Urine Nitrite NEGATIVE, Urine Bilirubin NEGATIVE, Urine Urobilinogen 0.2, Urine Leukocyte Esterase NEGATIVE, Urine RBC (Auto) 3+, Urine RBC 2-5, Urine WBC NONE, Urine Squamous Epithelial Cells 0-2, Urine Crystals NONE, Urine Bacteria NEGATIVE, Urine Casts NONE, Urine Mucus NEGATIVE, Urine Culture Indicated NO 03/21/20 08:00: Blood Gas Puncture Site R RAD, Blood Gas Patient Temperature 37.2, Arterial Blood pH 7.48, Arterial Blood Partial Pressure CO2 35, Arterial Blood Partial Pressure O2 85, Arterial Blood HCO3 25, Arterial Blood Total CO2 26.2, Arterial Blood Oxygen Saturation 97, Arterial Blood Base Excess 1.9, Natanael Test YES-POS, Blood Gas Ventilator Setting NO, Blood Gas Inspired Oxygen 4L 03/21/20 16:00: Sodium Level 140, Potassium Level 3.8, Chloride Level 100, Carbon Dioxide Level 26, Anion Gap 14, Blood Urea Nitrogen 10, Creatinine 0.66, Estimat Glomerular Filtration Rate > 60, BUN/Creatinine Ratio 15, Glucose Level 141, Calcium Level 8.4, Phosphorus Level 3.6, Magnesium Level 1.5 03/22/20 02:50: White Blood Count 12.0, Red Blood Count 3.47, Hemoglobin 10.1, Hematocrit 32, Mean Corpuscular Volume 92, Mean Corpuscular Hemoglobin 29, Mean Corpuscular Hemoglobin Concent 32, Red Cell Distribution Width 13.3, Platelet Count 487, Mean Platelet Volume 9.3, Immature Granulocyte % (Auto) 3, Neutrophils (%) (Auto) 77, Lymphocytes (%) (Auto) 12, Monocytes (%) (Auto) 7, Eosinophils (%) (Auto) 1, Basophils (%) (Auto) 0, Neutrophils # (Auto) 9.3, Lymphocytes # (Auto) 1.4, Monocytes # (Auto) 0.8, Eosinophils # (Auto) 0.1, Basophils # (Auto) 0.0, Immature Granulocyte # (Auto) 0.4, Sodium Level 138, Potassium Level 3.4, Chloride Level 102, Carbon Dioxide Level 25, Anion Gap 11, Blood Urea Nitrogen 10, Creatinine 0.55, Estimat Glomerular Filtration Rate > 60, BUN/Creatinine Ratio 18, Glucose Level 92, Calcium Level 8.0, Corrected Calcium 9.0, Phosphorus Level 2.8, Magnesium Level 1.6, Total Bilirubin 0.6, Aspartate Amino Transf (AST/SGOT) 29, Alanine Aminotransferase (ALT/SGPT) 23, Alkaline Phosphatase 55, Total Protein 5.4, Albumin 2.7 03/23/20 05:50: White Blood Count 11.8, Red Blood Count 3.32, Hemoglobin 9.8, Hematocrit 31, Mean Corpuscular Volume 92, Mean Corpuscular Hemoglobin 30, Mean Corpuscular Hemoglobin Concent 32, Red Cell Distribution Width 13.7, Platelet Count 497, Mean Platelet Volume 9.1, Immature Granulocyte % (Auto) 3, Neutrophils (%) (Auto) 80, Lymphocytes (%) (Auto) 10, Monocytes (%) (Auto) 6, Eosinophils (%) (Auto) 1, Basophils (%) (Auto) 0, Neutrophils # (Auto) 9.5, Lymphocytes # (Auto) 1.1, Monocytes # (Auto) 0.7, Eosinophils # (Auto) 0.1, Basophils # (Auto) 0.0, Immature Granulocyte # (Auto) 0.3, Sodium Level 140, Potassium Level 4.0, Chloride Level 107, Carbon Dioxide Level 22, Anion Gap 11, Blood Urea Nitrogen 10, Creatinine 0.58, Estimat Glomerular Filtration Rate > 60, BUN/Creatinine Ratio 17, Glucose Level 95, Calcium Level 8.0, Corrected Calcium 9.0, Phosphorus Level 3.3, Magnesium Level 2.1, Total Bilirubin 0.7, Aspartate Amino Transf (AST/SGOT) 43, Alanine Aminotransferase (ALT/SGPT) 34, Alkaline Phosphatase 61, Total Protein 5.4, Albumin 2.7 03/24/20 04:40: White Blood Count 11.1, Red Blood Count 3.37, Hemoglobin 9.9, Hematocrit 31, Mean Corpuscular Volume 93, Mean Corpuscular Hemoglobin 29, Mean Corpuscular Hemoglobin Concent 32, Red Cell Distribution Width 14.0, Platelet Count 554, Mean Platelet Volume 9.0, Immature Granulocyte % (Auto) 2, Neutrophils (%) (Auto) 79, Lymphocytes (%) (Auto) 10, Monocytes (%) (Auto) 7, Eosinophils (%) (Auto) 2, Basophils (%) (Auto) 0, Neutrophils # (Auto) 8.8, Lymphocytes # (Auto) 1.1, Monocytes # (Auto) 0.7, Eosinophils # (Auto) 0.3, Basophils # (Auto) 0.0, Immature Granulocyte # (Auto) 0.2, Sodium Level 141, Potassium Level 4.0, Chloride Level 108, Carbon Dioxide Level 22, Anion Gap 11, Blood Urea Nitrogen 11, Creatinine 0.60, Estimat Glomerular Filtration Rate > 60, BUN/Creatinine Ratio 18, Glucose Level 85, Calcium Level 8.0, Corrected Calcium 9.0, Phosphorus Level 3.4, Magnesium Level 2.0, Total Bilirubin 0.5, Aspartate Amino Transf (AST/SGOT) 46, Alanine Aminotransferase (ALT/SGPT) 44, Alkaline Phosphatase 66, Total Protein 5.4, Albumin 2.7 03/25/20 06:11: White Blood Count 10.4, Red Blood Count 3.30, Hemoglobin 9.6, Hematocrit 32, Mean Corpuscular Volume 96, Mean Corpuscular Hemoglobin 29, Mean Corpuscular Hemoglobin Concent 31, Red Cell Distribution Width 14.1, Platelet Count 546, Mean Platelet Volume 8.9, Immature Granulocyte % (Auto) 2, Neutrophils (%) (Auto) 75, Lymphocytes (%) (Auto) 12, Monocytes (%) (Auto) 8, Eosinophils (%) (Auto) 3, Basophils (%) (Auto) 0, Neutrophils # (Auto) 7.9, Lymphocytes # (Auto) 1.2, Monocytes # (Auto) 0.9, Eosinophils # (Auto) 0.3, Basophils # (Auto) 0.0, Immature Granulocyte # (Auto) 0.2, Sodium Level 140, Potassium Level 3.8, Chloride Level 110, Carbon Dioxide Level 21, Anion Gap 9, Blood Urea Nitrogen 10, Creatinine 0.63, Estimat Glomerular Filtration Rate > 60, BUN/Creatinine Ratio 16, Glucose Level 106, Calcium Level 7.9, Corrected Calcium 9.0, Total Bilirubin 0.4, Aspartate Amino Transf (AST/SGOT) 39, Alanine Aminotransferase (ALT/SGPT) 43, Alkaline Phosphatase 64, Total Protein 5.2, Albumin 2.6 Discharge Home Medications: Active Scripts Active Augmentin 875-125 Tablet (Amoxicillin/Potassium Clav) 1 Each Tablet 1 Each PO BID Famotidine 20 Mg Tablet 20 Mg PO BID Advair Hfa 115-21 Mcg Inhaler (Fluticasone/Salmeterol) 12 Gm Hfa.aer.ad 0 Puff IH RTBID Cardizem Cd (Diltiazem HCl) 360 Mg Cap.er.24h 360 Mg PO DAILY Metoprolol Succinate 25 Mg Tab.er.24h 25 Mg PO DAILY Eliquis (Apixaban) 5 Mg Tablet 5 Mg PO BID Reported Vitamin D3 (Cholecalciferol (Vitamin D3)) 125 Mcg Capsule 125 Mcg PO DAILY Lovastatin 10 Mg Tablet 10 Mg PO HS LAST FILLED 11-28-2019 #30/30 DAY SUPPLY Instructions to patient/family Please see electronic discharge instructions given to patient. Diagnosis/Problems Diagnosis/Problems (1) Atrial fibrillation with rapid ventricular response Clinical Quality Measures DVT/VTE Risk/Contraindication: Risk Factor Score Per Nursin RFS Level Per Nursing on Admit: 4+=Very High KEYA VELA DO Mar 25, 2020 10:40
--- NOTE | 2020-03-25 11:32 | NUR ---
LOPEZ SOLANO Tatiana demonstrates understanding of discharge instructions and accurately returns instructions upon questioning. Copy of Post-Discharge Instructions and Medication Discharge Instructions given to patient. LOPEZ SOLANO is able to manage continuing needs after discharge. Patients belongings returned to patient. Skin dry and intact; no breakdown noted. Patient discharged from [facility] on 03/25/19 at 1130. LOPEZ SOLANO left floor via wheelchair, accompanied by staff.
[2020-03-25 11:33] VITALS: BP 141/73
--- NOTE | 2020-03-25 12:33 | NUR ---
ALEX FINALIZED DISCHARGE PLAN: Patient dismissed to home today with new need of home health care and eliquis listed on her discharge med list. Doctor orders indicated [facility] and so a referral was faxed to them with a f/u phone call to ensure receipt. Patient's new eliquis medication was sent to [facility] and so they were called and given the free 30 day supply information for the patient to receive without cost to them. F/U with patient's Davi about the above information and also given Eliquis education. We went over education for at higher risk for bleeding, when to contact their doctor, when/if bleeding does not stop what to do, if missed dose take the ordered dose but not to take extra dose, and do not stop taking without doctors order. reports that he also takes this medication and voices appreciation for f/u phone call and information. He indicated that if not accepted by [facility] then to move down the list of [facility] agencies as second choice. He reports that [facility] has [employer] [facility] for her hospital insurance and that the [facility] [employer] we have currently listed is not the correct information. Updated our registration and C with that information and they will need to reach out to family to update that information. Addendum: 03/25/20 at 1332 by MINOO LAROSE RN [place] [facility] confirms that they will see the patient starting tomorrow 03/26/19 and they have spoken with family about start of service. No further needs noted at this time.
--- NOTE | 2020-03-25 15:19 | NUR ---
CM/SS: Telephone call to Davi - [phone] - letting him know that this worker was unable to see pt today prior to discharge. There will be some follow up as some things were not complete done due to miscommunication. RE: Home Health with [facility]. He is also told to tell pt that this worker missed her and that she is wished well. He is said he would let her know.
== END 2020-03-25 11:34 | disposition home health service (06) | DRG 308 ==
LOC: ICU 07:25 → 4TH 14:21 → CSD 03-21 05:20 → 4TH 03-22 10:40
PROVIDERS: ADMIT Internal Medicine; ATTEND Internal Medicine
DX: I48.0 Paroxysmal atrial fibrillation (principal); J18.9 Pneumonia, unspecified organism; K56.7 Ileus, unspecified; J81.1 Chronic pulmonary edema; I10 Essential (primary) hypertension; E78.00 Pure hypercholesterolemia, unspecified; R09.02 Hypoxemia; E87.6 Hypokalemia; E83.42 Hypomagnesemia; R06.03 Acute respiratory distress; D72.829 Elevated white blood cell count, unspecified; F29 Unspecified psychosis not due to a substance or known physiological condition; R41.0 Disorientation, unspecified
CPT/HCPCS: 36415; 71045; 80048; 80053; 81000; 82805; 83540; 83605; 83735; 83880; 84100; 84145; 85007; 85025; 85027; 85610; 85730; 87040; 87081; 93005; 93306; 94640; 94760

== ENCOUNTER 2020-08-12 06:25 | Outpatient (CLI) | payer MEDICARE ==
[~2020-08-12] VITALS: Ht 160 cm; Wt 57.4 kg
[~2020-08-12 06:25] MED LIST changes: +AMOX-358 PO; +APIX5TAB PO; +CHOL500050 PO; +DILT360C26 PO; +FAMO20TA5 PO; +FLUT12AE4 IH; +HYDR25TA4 PO; +IBUP-2473 PO; +LOVA10TA PO; +MTP25TSR PO
[2020-08-12] MEDS ORDERED: FAMO20TA3 PO (12:42)
[2020-08-12] MEDS ORDERED: LOVA10TA PO (12:42)
[2020-08-12] MEDS ORDERED: DILT360C26 PO (12:42)
[2020-08-12] MEDS ORDERED: MTP25TSR PO (12:42)
[2020-08-12] MEDS ORDERED: APIX5TAB PO (12:42)
== END 2020-08-12 12:52 | disposition home or self-care (01) ==
LOC: PREOP 06:25
PROVIDERS: ATTEND Surgery
DX: Z01.818 Encounter for other preprocedural examination (principal)

== ENCOUNTER 2020-08-15 07:08 | Day surgery (SDC) | payer MEDICARE ==
[2020-08-15] VITALS (12 sets, daily range): BP systolic 136–176; BP diastolic 67–83
[~2020-08-15] VITALS: Ht 160 cm; Wt 57.4 kg
[~2020-08-15 07:08] MED LIST changes: +FAMO20TA3 PO
[2020-08-15] MEDS: LACTATED RINGERS 1,000 ML IV PRN ×2 (07:30→09:45)
[2020-08-15] MEDS ORDERED: ceFAZolin INJECTION 1,000 MG ONE (07:37)
[2020-08-15] MEDS ORDERED: WATER (STERILE) FOR INJECTION 10 ML ONE (07:37)
[2020-08-15] MEDS ORDERED: LIDOCAINE/EPI 1%-1:200,000 (XYLOCAINE) 30 ML VIAL ONE (07:48)
--- NOTE | 2020-08-15 08:08 | Progress Note-Pre Operative ---
Pre-Operative Progress Note H&P Reviewed The H&P was reviewed, patient examined and no changes noted. Date Seen by Provider: August 15, 2020 Time Seen by Provider: 08:08 Date H&P Reviewed: August 15, 2020 Time H&P Reviewed: 08:08 Pre-Operative Diagnosis: incisional hernia GABY FERNANDEZ DO August 15, 2020 08:08
[2020-08-15] MEDS ORDERED: ceFAZolin INJECTION 1,000 MG in WATER (STERILE) FOR INJECTION 10 ML IV ONE (08:15)
[2020-08-15] MEDS ORDERED: fentaNYL INJ 100 MCG/2 ML AMP ONE (08:59)
[2020-08-15] MEDS ORDERED: GLYCOPYRROLATE 0.2 MG/ML (ROBINUL) 2 ML VIAL ONE (09:16)
[2020-08-15] MEDS ORDERED: proPOfol 200 MG/20 ML (DIPRIVAN) VIAL IV ONE (09:16)
[2020-08-15] MEDS ORDERED: SEVOFLURANE (ULTANE) 15 ML INHAL SOLN ONE (09:16)
[2020-08-15] MEDS ORDERED: NEOSTIGMINE 3 MG/3 ML VIAL ONE (09:16)
[2020-08-15] MEDS ORDERED: LIDOCAINE PF 2% 5 ML (XYLOCAINE) VIAL ONE (09:16)
[2020-08-15] MEDS ORDERED: ONDANSETRON 4 MG/2 ML (SDV) Z0FRAN ONE (09:16)
[2020-08-15] MEDS ORDERED: ROCURONIUM 10 MG/ML 5 ML SYRINGE IV ONE (09:16)
--- NOTE | 2020-08-15 10:16 | Progress Note-Post Operative ---
Post-Operative Progess Note Surgeon (s)/Treating Engineer (s) Surgeon GABY FERNANDEZ DO Treating Engineer: Dr. Posadas to assist in retraction dissection and closure. Pre-Operative Diagnosis incisional hernia Post-Operative Diagnosis incarcertaed incisional hernia umbilical hernia Procedure & Operative Findings Date of Procedure 08/15/20 Procedure Performed/Findings PROCEDURE: Laparoscopic incarcerated incisional hernia and umbilical hernia repair with [id number] echo ventralight mesh. COMPLICATIONS: None. INDICATIONS: The patient is a 80, female with an incisional hernia, which has continued to increase in size and cause discomfort. The patient was explained the risk and benefits of the procedure and wished to proceed with the procedure. Consent was signed on the chart. DESCRIPTION OF PROCEDURE: The patient was taken into the operating suite, prepped and draped in sterile fashion. Surgical pause was performed. Local anesthetic was infiltrated in left upper quadrant. A 15 blade scalpel was used to make a small skin incision. Cautery was used to dissect down to the fascia, which was then scored and divided the muscle, went through the posterior sheath and a balloon trocar was inserted into the abdomen. The abdomen was then insufflated. Incarcerated incisional hernia and an umbilical hernia was present. Some adhesions as well. A 5 mm trocar was placed in the right lower quadrant and a 5 mm trocar was placed in left lower quadrant. The defect was then closed using 0 Vicryl with a Treeso-Patrick. Echo Ventralight mesh was then inserted in the abdomen grabbed through the stab incision. The balloon was inflated on the mesh. Circumferential tacks were placed with a SecureStrap Tacker. The balloon was then removed and inner crown was created as well. The mesh was tacked with pressure being decreased. The 12 mm fascial defect was then closed using 0 Vicryl. The abdomen was then desufflated,the trocars were removed. The skin was then closed using 4-0 Monocryl in a running subcuticular fashion. The abdomen was washed and dried and Skin Affix was placed over the incisions. The patient tolerated procedure well without any complications. She was taken to recovery room in stable condition. Anesthesia Type general Estimated Blood Loss Estimated blood loss (mL): minimal Specimens/Packing Specimens Removed na GABY FERNANDEZ DO August 15, 2020 10:16
[2020-08-15] MEDS ORDERED: DOCU-143 PO (10:19)
[2020-08-15] MEDS ORDERED: ACHD5005 PO (10:19)
--- NOTE | 2020-08-15 10:20 | Discharge Inst-Simple/Standard ---
Discharge Inst-Standard Discharge Medications New, Converted or Re-Newed RX: Transmitted to Pharmacy Patient Instructions/Follow Up Plan of Care/Instructions/FU: 2-3 weeks Silvio Restart Abixiban in 2 days. Activity as Tolerated: No Discharge Diet: Regular Diet Other Inst to Patient Follow up Appt: Make appointment for 2 week. Instructions: No lifting greater than 10 pounds. No strenuous activity. May shower in 24 hours, no tub bath or soaking. Use incentive spirometer at home as directed. No Smoking Skin/Wound Care: You have special glue over your incision that will fall off on it's own. Symptoms to Report: Appetite Changes, Extremity Discoloration, Numbness/Tingling, Swelling Increased, Bleeding Excessive, Eyesight Changes, Pain Increased, Urine Color Change, Constipation(Persistent), Fever over 101 degree F, Pain/Pressure in chest, Urinating Difficulty, Cough Up/Vomit Blood, Heart Beat Irreg/Pounding, Pain/Pressure in jaw, Vaginal Bleeding Increase, Cramps in feet or legs, Lightheadedness, Pain/Pressure in shoulder, Diarrhea(Persistent), Memory Changes Suddenly, Questions/Concerns, Weight gain consecutive days, Dizziness/Fainting, Nausea/Vomiting, Shortness of Breath, Weight gain over 2 pounds If questions or concerns contact your physician Or seek help at emergency department. GABY FERNANDEZ DO August 15, 2020 10:20
[2020-08-15] MEDS ORDERED: morphine INJ 10 MG/ML 1ML (SYR OR VIAL) IVP ONE (10:30)
[2020-08-15] MEDS ORDERED: morphine INJ 10 MG/ML 1ML (SYR OR VIAL) ONE (10:30)
[2020-08-15] MEDS ORDERED: HYDROmorphone 2 MG/ML VIAL (DILAUDID) IV ONE (10:30)
[2020-08-15] MEDS ORDERED: ONDANSETRON 4 MG/2 ML (SDV) Z0FRAN IVP PRN (10:30)
[2020-08-15] MEDS ORDERED: HYDROcodone/APAP 5 MG/325 MG (LORTAB) TAB ONE (11:30)
[2020-08-15] MEDS ORDERED: HYDROcodone/APAP 5 MG/325 MG (LORTAB) TAB PO ONE (11:45)
== END 2020-08-15 14:05 | disposition home or self-care (01) ==
LOC: SDC 07:08
PROVIDERS: ATTEND Surgery
DX: K43.0 Incisional hernia with obstruction, without gangrene (principal); K42.9 Umbilical hernia without obstruction or gangrene; I10 Essential (primary) hypertension; I48.91 Unspecified atrial fibrillation; K21.9 Gastro-esophageal reflux disease without esophagitis; E78.00 Pure hypercholesterolemia, unspecified; Z79.899 Other long term (current) drug therapy; Z79.01 Long term (current) use of anticoagulants
CPT/HCPCS: 49652; 49655; 87081; C1781

== ENCOUNTER → 2021-09-29 | Outpatient (CLI) | payer MEDICARE ==
[~2021-09-29] MED LIST changes: +ACHD5005 PO; +DOCU-143 PO
--- NOTE | 2021-09-29 17:47 | Diagnostic Imaging Report ---
Indication: Left shoulder pain. Time of Exam: 3:46 PM 3 views of the left shoulder were obtained. Glenohumeral and acromioclavicular alignment are normal. No fracture or dislocation is seen. There is some narrowing of the acromiohumeral space suggestive of chronic rotator cuff arthropathy. Impression: Chronic rotator cuff arthropathy. No acute bony abnormality is detected. Dictated by: Dictated on workstation # [id number]
== END ==
LOC: RAD 15:27
PROVIDERS: ATTEND Nurse Practitioner Family
DX: M12.812 Other specific arthropathies, not elsewhere classified, left shoulder (principal)
CPT/HCPCS: 73030